=== PATIENT | female | born 1940 | race Caucasian/White ===

== ENCOUNTER → 2022-09-08 16:47 | Outpatient (CLI) | payer MEDICARE, OTHER, SELFPAY ==
--- NOTE | ~2022-09-08 | XR_ITS ---
XR lumbar spine 2-3V DATE: 09/08/2022 17:52 INDICATION: Sciatica TECHNIQUE: AP, lateral, coned lateral lumbosacral views COMPARISON: None FINDINGS: Diffuse osteopenia. Minimal levoscoliosis. Diffuse idiopathic skeletal hyperostosis of the thoracic spine. Mild to moderate loss of height at L2 vertebral body. Mild loss of height at L3 vertebral body. Status post vertebroplasty at L1, L2 and L3. Moderately severe to severe degenerative disc disease throughout the lumbar and lumbosacral spine. Degenerative change at the apophyseal joints with associated minimal grade 1 anterolisthesis at L4-5. Degenerative changes sacroiliac joints, without apparent fracture or dislocation. Status post cholecystectomy. There is a prominent amount of fecal material within the colon. IMPRESSION: Osteopenia Minimal levoscoliosis of the lumbar spine. Moderate compression fracture deformity at L2 to, mild compression fracture deformity of L3 Status post vertebroplasty at L1, L2 and L3 Degenerative changes apophyseal joints, with associated grade 1 anterolisthesis at L4-5 Moderately severe to severe degenerative disc disease throughout the lumbar and lumbosacral spine Reviewed, dictated and finalized at location A. NG CAGE CASHIER IMPRESSION: Osteopenia Minimal levoscoliosis of the lumbar spine. Moderate compression fracture deformity at L2 to, mild compression fracture def ormity of L3 Status post vertebroplasty at L1, L2 and L3 Degenerative changes apophyseal joints, with associated grade 1 anterolisthesis at L4-5 Moderately severe to severe degenerative disc disease throughout the lumbar and lumbosacral spine
== END ==
PROVIDERS: PCP Family Medicine; Visit Provider Family Medicine
DX: M54.30 Sciatica, unspecified side (principal); M85.89 Other specified disorders of bone density and structure, multiple sites; M41.86 Other forms of scoliosis, lumbar region; M48.56XA Collapsed vertebra, not elsewhere classified, lumbar region, initial encounter for fracture; Z98.890 Other specified postprocedural states; M43.16 Spondylolisthesis, lumbar region; M51.36 Other intervertebral disc degeneration, lumbar region
CPT/HCPCS: 72100

== ENCOUNTER 2022-09-29 12:35 | Outpatient (CLI) | payer MEDICARE, OTHER, SELFPAY ==
--- NOTE | ~2022-09-29 | MR_ITS ---
MRI of the lumbar spine Clinical History: Back pain Technique: Axial T2-weighted images, and sagittal T1-weighted, T2-weighted, and T2 fat-sat images wer e acquired. Findings: No acute fracture identified. There is vertebroplasty cement within the L1, L2, and L3 vert ebral bodies. Minimal grade 1 anterolisthesis of L4 over L5 noted. There are mild reactive marrow sig nal changes due to degenerative disc disease. No acute fracture seen. At L1-L2, there is minimal disc bulge. No spinal canal stenosis. There is mild to moderate bilateral neural foraminal narrowing. At L2-L3, there is minimal disc bulge and minimal facet arthropathy. No spinal canal stenosis. There is moderate bilateral neural foraminal narrowing. At L3-L4, there is minimal disc bulge. There is mild facet arthropathy. No spinal canal stenosis. The re is mild left neural foraminal narrowing. At L4-L5, there is disc bulge and mild facet arthropathy. No spinal canal stenosis. There is moderate left neural foraminal narrowing. Right neural foramen preserved. At L5-S1, there is minimal disc bulge. There is mild facet arthropathy. There is no spinal canal sten osis. There is moderate left neural foraminal narrowing. Right neural foramen preserved. 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 Paravertebral soft tissues are otherwise unremarkable. Impression: Vertebroplasty cement at L1, L2, and L3. No acute fracture. Minimal grade I anterolisthesis of L4 over L5. Mild degenerative spondylosis, with multilevel neural foraminal narrowing, as detailed above. No spin al canal stenosis. Reviewed, dictated and finalized at [facility]. CT ORIENTED PROGRAMMER Impression: Vertebroplasty cement at L1, L2, and L3. No acute fracture. Minimal grade I anterolisthesis of L4 over L5. Mild degenerative spondylosis, with multilevel neural foraminal narrowing, as d etailed above. No spinal canal stenosis.
== END 2022-09-29 12:36 | disposition home or self-care (01) ==
PROVIDERS: PCP Family Medicine; Visit Provider Family Medicine
DX: M47.26 Other spondylosis with radiculopathy, lumbar region (principal)
CPT/HCPCS: 72148

== ENCOUNTER 2023-03-28 12:37 | Outpatient (CLI) | payer MEDICARE, OTHER, SELFPAY ==
--- NOTE | ~2023-03-28 | DEXA_ITS ---
Bone Density Report Name: JARVIS MANCIA Age: 82 Sex: Female Ethnicity: White Date of : 1940 Indication: postmenopausal; screening for osteoporosis; height loss; inflammatory bowel disease; prior fracture; hysterectomy; Referring Provider: BRONWYN FIGUEROA Study: Bone densitometry was performed. Exam Date: March 28, 2023 Accession number: [id number] Bone Density: Region BMD T-score Z-score Classification Femoral Neck (Left) 0.469 -3.4 -1.1 Osteoporosis Total Hip (Left) 0.632 -2.5 -0.4 Osteoporosis Femoral Neck (Right) 0.459 -3.5 -1.2 Osteoporosis Total Hip (Right) 0.580 -3.0 -0.8 Osteoporosis Total Hip Mean 0.606 -2.8 -0.6 Osteoporosis World Health Organization criteria for BMD impression classify patients as: Normal (T-score at or above -1.0), Osteopenia (T-score between -1.0 and -2.5), or Osteoporosis (T-score at or below -2.5). 10-year Fracture Risk: FRAX not reported because: Some T-score for Spine Total or Hip Total or Femoral Neck at or below -2.5 Prior hip or vertebral fracture Clinical Information Provided by Patient: Have had a previous hip or vertebral fracture Has had a low trauma fracture Has used the following medications: Vitamin D, Calcium Has the following medical conditions: Inflammatory bowel diseases, Hysterectomy Patient maximum height was 65.5 Menopause Age: 31 No regular weight bearing exercise Drinks caffeinated beverages Onset of menses at age 13 Number of children 2 Impression: The patient has established osteoporosis, based on the Right Femoral Neck T-score and the existence of a prior fracture. The patient has risk factors, including: previous fracture. Discussion: HIGH RISK OF FRACTURE. BONE DENSITY IS UNDESIRABLY LOW AT ONE OR MORE SKELETAL SITES, CONSISTENT WITH POSTMENOPAUSAL OSTEOPOROSIS. This patient's lowest T-score, in a patient who has previously fractured, meets the World Health Organization's (WHO) criteria for severe osteoporosis. In untreated patients, the risk of osteoporotic fracture increases approximately two-fold for each 1.0 SD decrease in T-score. Low bone density is not the only risk factor for fracture; also consider factors such as patient's age, frailty or poor health, risk of falling, risk of injury, previous osteoporotic fracture, family history of osteoporosis, cigarette smoking, low body weight, etc. Not everyone with low bone mineral density has osteoporosis; osteomalacia and other metabolic bone disorders should also be considered. Patients who have osteoporosis should be evaluated for specific diseases and conditions (secondary causes) that may cause or contribute to bone loss. The [place] [employer]ocrin[employer] (AACE) and National Osteoporosis Foundation (NOF) recommend pharmacologic intervention for all postmenopausal women with a
== END 2023-03-28 12:38 | disposition home or self-care (01) ==
LOC: ANHIMG 12:39
PROVIDERS: PCP Family Medicine; Visit Provider Family Medicine
DX: Z78.0 Asymptomatic menopausal state (principal); M81.0 Age-related osteoporosis without current pathological fracture
CPT/HCPCS: 77080

== ENCOUNTER 2024-04-04 11:47 | Outpatient (CLI) | payer MEDICARE, OTHER, SELFPAY ==
--- NOTE | ~2024-04-04 | MM_ITS ---
EXAMINATION: MM diagnostic lea BI w anabela HISTORY: Mastodynia TECHNIQUE: 3-D tomosynthesis images of the bilateral breasts were performed and synthetic 2-D images were generated. CAD analysis was submitted and interpreted. COMPARISON: 03/27/2020, 03/18/2022 FINDINGS: The breasts are predominantly fatty replaced. Parenchymal pattern of both breasts is unchanged. No suspicious mass lesion, distortion, or microcalc ifications seen. Bilateral breast biopsy marker clips are present. IMPRESSION: No mammographic evidence for malignancy. BI-RADS Category 2: Benign finding(s). Reviewed, dictated and finalized at location M.
== END 2024-04-04 11:48 | disposition home or self-care (01) ==
LOC: ANHIMG 11:49
PROVIDERS: PCP Family Medicine
DX: N64.4 Mastodynia (principal)
CPT/HCPCS: 77062; 77066; G0279

== ENCOUNTER 2024-05-24 11:43 | Outpatient (CLI) | payer MEDICARE, OTHER, SELFPAY ==
--- NOTE | ~2024-05-24 | CT_ITS ---
EXAMINATION: CT abdomen pelvis wo con DATE: 05/24/2024 12:03 INDICATION: Left lower quadrant abdominal pain. TECHNIQUE: Computed tomography (CT) of the abdomen and pelvis was performed without intravenous contr ast. Automated exposure control and iterative reconstruction technique were employed. The dose-length product was 467.90 mGy-cm. COMPARISON: Lumbar spine radiographs 08/29/2022. FINDINGS: The visualized portions of the lung bases demonstrate mild atelectasis. No pleural effusion . The heart size is normal. There is a small pericardial effusion. There are coronary artery calcific ations. There is a small sliding hiatal hernia. The liver, spleen, and pancreas are normal. There are changes of cholecystectomy. The adrenal glands are normal. There are cysts in right kidney measuring up to 2.0 cm. There is mild atrophy of left kidney. There is diverticulosis of the colon without lydia dence of diverticulitis. There is wall thickening in the transverse and descending colon. There are n o dilated loops of bowel. The appendix is normal. There is calcified atherosclerosis of the aorta and many of the other arteries. There are no pathologically enlarged lymph nodes. There is severe lumbar spondylosis. There are changes of vertebroplasty in L1, L2, and L3 with embolization of vertebroplas ty material to the inferior vena cava. There is a benign bone island in L5. IMPRESSION: 1. Wall thickening of the transverse and descending colon, consistent with colitis. 2. Small sliding hiatal hernia. 3. Small pericardial effusion. Reviewed, dictated and finalized at location A. IMPRESSION: 1. Wall thickening of the transverse and descending colon, consistent with coli tis. 2. Small sliding hiatal hernia. 3. Small pericardial effusion.
[2024-05-24 12:22] LABS: Basophils Absolute Auto 0.1 K/mm3 (0.0-0.1); Basophils Percent Auto 0.5 % (0.2-1.2); Eosinophils Percent Auto 0.3 % (0-4.4); Hematocrit 43.2 % (37.0-47.0); Hemoglobin 14.1 g/dL (12.0-15.0); Immature Granulocyte Absolute 0.05 K/mm3 (0.00-0.031); Immature Granulocyte Percent A 0.5 % (0-0.5); Lymphocytes Absolute Auto 1.73 K/mm3 (0.9-3.2); Lymphocytes Percent Auto 17.9 % (18.3-44.2); Mean Corpuscular HGB Conc 32.6 g/dl (32-36); Mean Corpuscular Hemoglobin 30.7 pg (26-34); Mean Corpuscular Volume 93.9 fl (80-100); Mean Platelet Volume 10.8 fl (7.4-10.4); Monocytes Absolute Auto 0.8 K/mm3 (0.1-0.6); Neutrophils Absolute Auto 7.1 K/mm3 (1.3-6.7); Neutrophils Percent Auto 72.8 % (45.5-73.1); Platelet Count Result 235 k/mm3 (150-375); Red Cell Distribution Width 12.7 % (11.5-14.5); White Blood Count 9.7 K/mm3 (4.5-10.0)
[2024-05-24 12:41] LABS: Alanine Aminotransferase 16 U/L (6-35); Albumin Level 4.5 g/dL (3.5-5.1); Alkaline Phosphatase 82 U/L (38-126); Anion Gap 13 mmol/L (4-12); Aspartate Amino Transferase 29 U/L (14-36); Bilirubin,Total 1.1 mg/dL (0.2-1.3); Blood Urea Nitrogen 20 mg/dL (7-17); Calcium 9.9 mg/dL (8.4-10.2); Carbon Dioxide 21 mmol/L (22-30); Chloride 104 mmol/L (98-107); Estimated Glomerular Filt Rate 36; Glucose 87 mg/dL (65-110); Potassium 5.2 mmol/L (3.4-5.0); Sodium 138 mmol/L (137-145)
== END 2024-05-24 11:44 | disposition home or self-care (01) ==
LOC: ANHIMG 11:46
PROVIDERS: PCP Family Medicine; Visit Provider Physician Assistant
DX: R10.32 Left lower quadrant pain (principal); Z87.19 Personal history of other diseases of the digestive system; R68.83 Chills (without fever); K44.9 Diaphragmatic hernia without obstruction or gangrene; I31.39 Other pericardial effusion (noninflammatory)
CPT/HCPCS: 36415; 74176; 80053; 85025

== ENCOUNTER 2024-05-26 15:14 | Inpatient (IN) | payer MEDICARE, OTHER, SELFPAY ==
[2024-05-26] VITALS (7 sets, daily range): BP systolic 110–143; BP diastolic 41–73; PULSE 87–114; RESP 17–22; TEMP 36.2–36.9; O2SAT 98–100
--- NOTE | ~2024-05-26 | CT_ITS ---
EXAMINATION: CT abdomen pelvis wo con DATE: 05/26/2024 17:46 INDICATION: Worsening abdominal pain. Colitis. TECHNIQUE: Computed tomography (CT) of the abdomen and pelvis was performed without intravenous contr ast. Automated exposure control and iterative reconstruction technique were employed. Exam dose: 497 .11 mGy-cm total exam DLP. COMPARISON: 05/24/2024 CT abdomen pelvis FINDINGS: The lung bases are clear. Borderline heart size. No pericardial or pleural effusion. Right fat-containing foramen of Bochdalek hernia. Small sliding hiatal hernia. Status post cholecystectomy. No hepatic or pancreatic space-occupying mass lesion or bile duct or pancreatic duct dilatation. Norm al splenic size. No adrenal mass lesion. Moderate left renal atrophy. No urinary tract calculus or hydroureteronephrosis. Diverticulosis of the colon; no CT evidence of diverticulitis No bowel obstruction or intraperitoneal free air. Again noted is vertebroplasty at L1, L2, L3 with embolization of methyl methacrylate at the inferior vena cava. L5 vertebral body bone island.. Severe degenerative disc disease throughout the lumbar spine. IMPRESSION: No significant change since 05/24/2024 Reviewed, dictated and finalized at Location A. Reviewed, dictated and finalized at location J.
[2024-05-26 16:00] LABS: Basophils Percent Auto 0.5 % (0.2-1.2); Eosinophils Absolute Auto 0.1 K/mm3 (0-0.3); Eosinophils Percent Auto 0.6 % (0-4.4); Hematocrit 39.2 % (37.0-47.0); Hemoglobin 13.3 g/dL (12.0-15.0); Immature Granulocyte Absolute 0.02 K/mm3 (0.00-0.031); Immature Granulocyte Percent A 0.2 % (0-0.5); Lymphocytes Absolute Auto 1.59 K/mm3 (0.9-3.2); Lymphocytes Percent Auto 18.9 % (18.3-44.2); Mean Corpuscular HGB Conc 33.9 g/dl (32-36); Mean Corpuscular Hemoglobin 30.8 pg (26-34); Mean Corpuscular Volume 90.7 fl (80-100); Mean Platelet Volume 10.8 fl (7.4-10.4); Monocytes Absolute Auto 0.8 K/mm3 (0.1-0.6); Monocytes Percent Auto 9.2 % (2.6-8.5); Neutrophils Absolute Auto 5.9 K/mm3 (1.3-6.7); Neutrophils Percent Auto 70.6 % (45.5-73.1); Platelet Count Result 225 k/mm3 (150-375); Red Blood Count 4.32 M/mm3 (4.2-5.4); Red Cell Distribution Width 12.7 % (11.5-14.5); White Blood Count 8.4 K/mm3 (4.5-10.0)
[2024-05-26 16:14] LABS: Add Urine Microscopic? YES; Appearance Urine Clear (Clear); Bacteria Urine None Seen /hpf; Bilirubin Urine Negative (Negative); Blood Urine Negative (Negative); Color Urine Yellow (Yellow); Glucose Urine UA Negative (Negative); Ketones Urine Trace mg/dL (Negative); Leukocyte Esterase Ur Trace LEU/UL (Negative); Nitrate Urine Negative (Negative); Non Pathogenic Casts 0-2; Protein Urine Trace mg/dL (Negative); Specific Grav Ur 1.012 (1.001-1.035); Squamous Epithelial Cell Urine Occasional /hpf (Few); Urobilinogen Urine 0.2 mg/dL (<2.0); WBC Urine 0-5 /hpf (0-3)
[2024-05-26 16:15] LABS: Alanine Aminotransferase 17 U/L (6-35); Albumin Level 4.3 g/dL (3.5-5.1); Alkaline Phosphatase 69 U/L (38-126); Anion Gap 15 mmol/L (4-12); Aspartate Amino Transferase 35 U/L (14-36); Bilirubin,Total 0.8 mg/dL (0.2-1.3); Blood Urea Nitrogen 26 mg/dL (7-17); Calcium 9.5 mg/dL (8.4-10.2); Carbon Dioxide 18 mmol/L (22-30); Chloride 105 mmol/L (98-107); Estimated CRCL calculation 18 ml/min; Estimated Glomerular Filt Rate 25; Glucose 134 mg/dL (65-110); Lipase 113 U/L (23-300); Potassium 3.9 mmol/L (3.4-5.0); Sodium 138 mmol/L (137-145)
[2024-05-26] MEDS: SODIUM CHLORIDE 0.9% IV 500 ML 999 ML IV CONT ×2 (16:26→17:36)
--- NOTE | 2024-05-26 17:12 | ED.NAVMDI ---
HPI - Nausea/Vomiting/Diarrhea General Chief complaint: Nausea/Vomiting/Diarrhea Stated complaint: diarrhea Time Seen by Provider: 05/26/24 15:39 Source: patient Mode of arrival: ambulatory Limitations: no limitations History of Present Illness HPI Narrative: This is a 83-year-old female that presents to the emergency department for abdominal pain and diarrhea. Ongoing over the last several days. Reports she was started on ciprofloxacin and Flagyl for colitis. She has had little relief with this. Continues to have abdominal pain and nausea limiting intake. Denies fevers. Related Data Home Medications Medication Instructions Recorded Confirmed acetaminophen 500 mg tablet 1,000 mg PO Q6H PRN pain or fever 05/26/24 05/26/24 melatonin 3 mg tablet 3 mg PO HS PRN Insomnia 05/26/24 05/26/24 omeprazole 20 mg capsule,delayed 20 mg PO DAILY PRN Indigestion 05/26/24 05/26/24 release Allergies Allergy/AdvReac Type Severity Reaction Status Date / Time adhesive tape Allergy Mild Unknown Verified 05/24/24 10:31 iodine Allergy Mild Unknown Verified 05/24/24 10:31 Review of Systems Review of Systems: CONSTITUTIONAL: Denies fever GASTROINTESTINAL: Reports abdominal pain, nausea, and diarrhea. 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ever Substance use type: does not use Do You Feel Safe in your Home?: Yes Lack of Transportation: No Lack of Food: Never True Current Housing: I Have Housing Concerned About Future Housing: No Difficulty Paying Gas/Electric Bills: No Difficulty Paying for Meds: No Currently Unemployed: No Education: Trade/Vocational Certificate Difficulty w/ Childcare or Family Care: No Living arrangements: with family Occupation/Education: retired Gender identity (if verbalized by the patient): Female Sexual Orientation (if Verbalized by the Patient): Straight or Heterosexual Spiritual care concerns: No Exam Narrative: GENERAL: Well-appearing, well-nourished, and in no acute distress. HEAD: Normocephalic, atraumatic. EYES: EOMI. CHEST: Clear to auscultation. No respiratory distress. No wheezes rales or rhonchi HEART: Regular rate and rhythm. No murmur heard. Normal peripheral pulses. ABDOMEN: Soft, nondistended, normal active bowel sounds. Tender to palpation throughout the abdomen, without guarding EXTREMITIES: Normal range of motion. No edema. SKIN: Warm, dry, no rash. NEURO: No focal deficits. Alert and oriented x3. PSYCH: Normal mood and affect Course Course Emergency Course: Patient and family updated on workup and need for admission Consultations Consultation #1: Spoke with hospitalist about patient and workup who accepts admission. Would like a CT abdomen/pelvis to rule any abscess or potential surgical need Date: 05/26/24 Vital S
[2024-05-26 17:48] LABS: Lactic Acid Reflex 1.5 mmol/L (0.7-2.0)
[2024-05-26] MEDS: ONDANSETRON INJ 4 MG/2 ML VIAL IV PUSH (17:56)
[2024-05-26] MEDS: PANTOPRAZOLE SODIUM IV 40 MG VIAL IV PUSH (17:56)
[2024-05-26] MEDS: MORPHINE SULFATE (*CRX) 2 MG/ML INJ IV PUSH (17:56)
--- NOTE | 2024-05-26 18:23 | PM.IMHP ---
H&P: HPI History of Present Illness Date/Time: 05/26/24 18:23 Chief Complaint: Diarrhea Narrative: 83 y/o F presents here with diarrhea with PMH of chronic back pain, depression, GERD, HTN, hypothyroidism, IBS, osteoporosis, and rheumatoid arthritis. The patient presents here from home for further evaluation of diarrhea. She reports onset of diarrhea three weeks ago. Has been ongoing for the past 3 weeks. She also reports that her stool has been a different consistency through these episodes and describes it as more mucus like and more dark, however patient was self-treating with Pepto-Bismol and Bentyl. Patient initially sought care with her PCP who started her on Cipro 500 BID and Flagyl 500 mg Q8H. Today, patient woke up at 4:45 am to use the restroom due to diarrhea and had 4-5 more episodes after that. Diarrhea is accompanied by nausea, abdominal pain, and lower back pain. She describes the abdominal pain as cramping, nonradiating, intermittent, aggravated by eating, and no alleviating factors. Patient initially attributed symptoms to her known IBS. However due to her symptoms continuing to worsen by the hour , she elected to seek care today. Patient has history of diverticulitis years ago and reports that symptoms feel similar. Denies hematochezia or melena. Initial VS at presentation: 98.4? F, HR 114, RR 22, 143/62, and 98% on RA. ED workup showed: No leukocytosis, no anemia, creatinine 1.9 and GFR 25 (previously 1.4 and GFR 36), lactic 1.5, normal LFTs and lipase, and UA showed trace ketones, trace leuks, and 3-[address] of the abdomen pelvis done on 05/24 showed colitis, small sliding hiatal hernia, and small pericardial effusion. Repeat CT of the abdomen/pelvis pending. 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ever Substance use type: does not use Do You Feel Safe in your Home?: Yes Lack of Transportation: No Lack of Food: Never True Current Housing: I Have Housing Concerned About Future Housing: No Difficulty Paying Gas/Electric Bills: No Difficulty Paying for Meds: No Currently Unemployed: No Education: Trade/Vocational Certificate Difficulty w/ Childcare or Family Care: No Living arrangements: with family Occupation/Education: retired Gender identity (if verbalized by the patient): Female Sexual Orientation (if Verbalized by the Patient): Straight or Heterosexual Spiritual care concerns: No Meds Home Medications and Allergies Home Medications Medication Instructions Recorded Confirmed Type lisinopril 10 mg tablet 10 mg PO DAILY #90 tabs 03/06/24 05/26/24 Rx levothyroxine 75 mcg tablet 75 mcg PO DAILY #30 tabs 03/23/24 05/26/24 Rx dicyclomine 20 mg tablet 20 mg PO QID PRN cramping #30 tabs 05/21/24 05/26/24 Rx ciprofloxacin HCl 500 mg tabl
--- NOTE | 2024-05-26 19:09 | ADMGEN ---
This patient, Carla Rosas, was admitted to Medical Room 348-01. Patient/family oriented to hospital policies and general routines including ID bracelet, bed and alarms, visiting hours, pain management, procedures, bathroom and other care routines, personal items, smoking policy, room service/diet, and visiting hours. Information on how to activate the Rapid Response Team has been discussed. Patient/Family are encouraged to report perceived risks to care and to ask questions if they do not understand what they are told or what they should do.
[2024-05-26] MEDS: metroNIDAZOLE 500 MG/ISO 100ML 500 MG/100 ML BAG 100 MG IVPB (21:24)
[2024-05-26] MEDS: SODIUM CHLORIDE 0.9% IV 1,000 ML 100 ML IV CONT (21:24)
[2024-05-26] MEDS: DICYCLOMINE HCL 10 MG CAPSULE 20 MG PO (21:31)
[2024-05-26] MEDS: MELATONIN 3 MG TABLET PO (21:31)
[2024-05-27] VITALS (11 sets, daily range): BP systolic 110–123; BP diastolic 45–53; PULSE 64–87; RESP 16–20; TEMP 36.4–36.7; O2SAT 99–100
[2024-05-27] MEDS: metroNIDAZOLE 500 MG/ISO 100ML 500 MG/100 ML BAG 100 MG IVPB ×3 (05:09→20:59)
[2024-05-27 05:52] LABS: Basophils Absolute Auto 0.1 K/mm3 (0.0-0.1); Basophils Percent Auto 0.7 % (0.2-1.2); Eosinophils Absolute Auto 0.1 K/mm3 (0-0.3); Eosinophils Percent Auto 1.6 % (0-4.4); Hematocrit 37.2 % (37.0-47.0); Hemoglobin 11.5 g/dL (12.0-15.0); Immature Granulocyte Absolute 0.03 K/mm3 (0.00-0.031); Immature Granulocyte Percent A 0.4 % (0-0.5); Lymphocytes Absolute Auto 1.47 K/mm3 (0.9-3.2); Lymphocytes Percent Auto 20.8 % (18.3-44.2); Mean Corpuscular HGB Conc 30.9 g/dl (32-36); Mean Corpuscular Hemoglobin 30.2 pg (26-34); Mean Corpuscular Volume 97.6 fl (80-100); Mean Platelet Volume 11.1 fl (7.4-10.4); Monocytes Absolute Auto 0.9 K/mm3 (0.1-0.6); Monocytes Percent Auto 12.2 % (2.6-8.5); Neutrophils Absolute Auto 4.5 K/mm3 (1.3-6.7); Neutrophils Percent Auto 64.3 % (45.5-73.1); Platelet Count Result 189 k/mm3 (150-375); Red Blood Count 3.81 M/mm3 (4.2-5.4); Red Cell Distribution Width 12.9 % (11.5-14.5); White Blood Count 7.1 K/mm3 (4.5-10.0)
[2024-05-27 06:05] LABS: Alanine Aminotransferase 14 U/L (6-35); Albumin Level 3.4 g/dL (3.5-5.1); Alkaline Phosphatase 58 U/L (38-126); Anion Gap 12 mmol/L (4-12); Aspartate Amino Transferase 32 U/L (14-36); Bilirubin,Total 0.7 mg/dL (0.2-1.3); Blood Urea Nitrogen 21 mg/dL (7-17); Calcium 8.3 mg/dL (8.4-10.2); Carbon Dioxide 16 mmol/L (22-30); Chloride 112 mmol/L (98-107); Estimated CRCL calculation 21 ml/min; Estimated Glomerular Filt Rate 31; Glucose 87 mg/dL (65-110); Potassium 4.2 mmol/L (3.4-5.0); Sodium 140 mmol/L (137-145)
[2024-05-27] MEDS: LEVOTHYROXINE SODIUM 75 MCG TABLET PO (06:05)
[2024-05-27] MEDS: DICYCLOMINE HCL 10 MG CAPSULE 20 MG PO (09:13)
--- NOTE | 2024-05-27 15:47 | PM.IMPN ---
Progress Note: A&P Assessment and Plan (1) Sepsis: Qualifiers: Sepsis type: sepsis due to unspecified organism Sepsis acute organ dysfunction status: without acute organ dysfunction Qualified Code(s): A41.9 - Sepsis, unspecified organism Code(s): A41.9 - Sepsis, unspecified organism Status: Acute Assessment and Plan: - Resolved. - Symptoms possibly related to severe dehydration 2'/2 diarrhea. - Lactate normalized. - No fevers or leukocytosis. - Continue ceftriaxone and metronidazole for now as we await cultures. - blood cultures drawn on 05/26 - Follow stool studies. (2) Colitis: Code(s): K52.9 - Noninfective gastroenteritis and colitis, unspecified Status: Acute Assessment and Plan: - CT abd/pelvis (05/24): 1. Wall thickening of the transverse and descending colon, consistent with colitis. 2. Small sliding hiatal hernia. 3. Small pericardial effusion. - CT abd/pelvis (05/26): 1. No significant change since 05/24/2024 - Continue ceftriaxone and metronidazole for now. - IV fluids hydration. - supportive care - monitor I&Os - soft diet advance as tolerated. (3) ROMINA (acute kidney injury): Code(s): N17.9 - Acute kidney failure, unspecified Status: Acute Assessment and Plan: - ROMINA superimposed on CKD - Slowly improving. - creatinine 1.9 and GFR 25, previously 1.4 and GFR 36 on 05/24/2024 - Likely 2'/2 dehydration related to diarrhea. - Iv fluids hydration. - Continue to hold madyson inhibitor. (4) HTN (hypertension): Qualifiers: Hypertension type: secondary to endocrine disorders Qualified Code(s): I15.2 - Hypertension secondary to endocrine disorders Code(s): I10 - Essential (primary) hypertension Status: Acute Assessment and Plan: - Fairly well controlled. - Continue to hold BP meds. - monitor closely. Plan Patient here with ongoing diarrhea for 3 weeks. Initially attributed symptoms to IBS, however stool more mucus-like than her usual loose stools. Imaging showed colitis. Stool cultures pending. Started on ceftriaxone and metronidazole. Blood cultures pending. Diet: Clear liquid, advance as tolerated GI Prophylaxis: PO pantoprazole DVT Prophylaxis: SCDs Lines: peripheral Code Status: full code Time Spent With Patient Time with patient: 25 - 35 minutes Subjective Date/time seen: 05/27/24 15:47 Interval history: Patient has a Hx of IBS and normally has diarrhea episodes but do not last > 1 week. She presented to the ER with reports of diarrhea > 3 weeks that was not improving. Patient currently on bedrest and states still has episodes of diarrhea with some abdominal discomfort. Review of Systems Review of Systems: All systems reviewed & are unremarkable except as noted in HPI and below Exam Const: General: comfortable and no acute distress Other: , female, nontoxic appearance HENMT: Face/Nose/Sinus: Normal nares present Mouth: Yes dry mucous membranes Eyes: General: appearance normal, both eyes and all related structures Sclera: sclerae normal Pupils: Equal, round and reactive pupils present EOM: EOMs intact bilaterally Neck: Neck: supple Resp: Effort & Inspection: normal respiratory effort Auscultation: clear to auscultation bilaterally Cardio: Rate: regular rate Rhythm: regular rhythm Other: S1-S2 present without murmur, rub, ectopy GI: GI Palp: Yes Soft to palpation Other: mild abdominal tenderness on palpation. +ve bowel sounds in all quadrants. Skin: General skin exam: normal color and no rashes or lesions noted Wounds: no wounds Neuro: Cranial nerves: Yes Equal, round and reactive pupils present Speech: normal speech Motor exam (neuro): 5/5 motor strength present throughout Sensory Exam: normal sensation Other: A/Ox4 Extrem: General: normal to inspection Psych: Mental Status: mental status grossly normal Affect: normal
[2024-05-27] MEDS: HYDROcodone/acetaminophen (*CRX) 5-325 MG TABLET 1 TAB PO ×2 (16:31→22:32)
[2024-05-27] MEDS: SODIUM CHLORIDE 0.9% IV 1,000 ML 125 ML IV CONT (16:36)
[2024-05-27] MEDS: MELATONIN 3 MG TABLET PO (20:58)
[2024-05-28] VITALS (7 sets, daily range): BP systolic 129–150; BP diastolic 52–69; PULSE 73–100; RESP 19–20; TEMP 36.3–36.5; O2SAT 99–100; BMI 26.6
[2024-05-28] MEDS: SODIUM CHLORIDE 0.9% IV 1,000 ML 125 ML IV CONT ×3 (05:21→20:30)
[2024-05-28] MEDS: LEVOTHYROXINE SODIUM 75 MCG TABLET PO (05:30)
[2024-05-28] MEDS: metroNIDAZOLE 500 MG/ISO 100ML 500 MG/100 ML BAG 100 MG IVPB ×3 (05:30→20:31)
[2024-05-28 06:17] LABS: Anion Gap 12 mmol/L (4-12); Blood Urea Nitrogen 18 mg/dL (7-17); Calcium 8.3 mg/dL (8.4-10.2); Carbon Dioxide 15 mmol/L (22-30); Chloride 113 mmol/L (98-107); Estimated CRCL calculation 26 ml/min; Estimated Glomerular Filt Rate 39; Glucose 90 mg/dL (65-110); Potassium 4.4 mmol/L (3.4-5.0); Sodium 140 mmol/L (137-145)
[2024-05-28 06:30] LABS: Basophils Absolute Auto 0.1 K/mm3 (0.0-0.1); Basophils Percent Auto 0.7 % (0.2-1.2); Eosinophils Absolute Auto 0.2 K/mm3 (0-0.3); Eosinophils Percent Auto 2.6 % (0-4.4); Hematocrit 37.1 % (37.0-47.0); Hemoglobin 11.4 g/dL (12.0-15.0); Immature Granulocyte Absolute 0.03 K/mm3 (0.00-0.031); Immature Granulocyte Percent A 0.4 % (0-0.5); Immature Platelet Fraction Pct 7.8 % (0.9-11.2); Lymphocytes Absolute Auto 1.29 K/mm3 (0.9-3.2); Lymphocytes Percent Auto 17.6 % (18.3-44.2); Mean Corpuscular HGB Conc 30.7 g/dl (32-36); Mean Corpuscular Hemoglobin 30.3 pg (26-34); Mean Corpuscular Volume 98.7 fl (80-100); Mean Platelet Volume 12.1 fl (7.4-10.4); Monocytes Absolute Auto 0.7 K/mm3 (0.1-0.6); Monocytes Percent Auto 9.7 % (2.6-8.5); Neutrophils Absolute Auto 5.1 K/mm3 (1.3-6.7); Platelet Count Result 157 k/mm3 (150-375); Red Blood Count 3.76 M/mm3 (4.2-5.4); Red Cell Distribution Width 13.2 % (11.5-14.5); White Blood Count 7.3 K/mm3 (4.5-10.0)
[2024-05-28 06:35] LABS: Toxigenic C. Diff NEGATIVE (NEGATIVE)
--- NOTE | 2024-05-28 14:07 | PM.IMPN ---
Progress Note: A&P Assessment and Plan (1) Sepsis: Qualifiers: Sepsis type: sepsis due to unspecified organism Sepsis acute organ dysfunction status: without acute organ dysfunction Qualified Code(s): A41.9 - Sepsis, unspecified organism Code(s): A41.9 - Sepsis, unspecified organism Status: Acute Assessment and Plan: - Resolved. - Symptoms likely not Sepsis but related to severe dehydration 2'/2 diarrhea. - Currently no Lactic acidosis, No fevers or leukocytosis. - Continue ceftriaxone and metronidazole for now as we await cultures. - Preliminary blood cultures NGTD. - Follow stool studies. (2) Colitis: Code(s): K52.9 - Noninfective gastroenteritis and colitis, unspecified Status: Acute Assessment and Plan: - CT abd/pelvis (05/24): 1. Wall thickening of the transverse and descending colon, consistent with colitis. 2. Small sliding hiatal hernia. 3. Small pericardial effusion. - CT abd/pelvis (05/26): 1. No significant change since 05/24/2024 - Continue ceftriaxone and metronidazole for now. - GI consulted. - IV fluids hydration. - supportive care - monitor I&Os - soft diet and advance as tolerated. (3) ROMINA (acute kidney injury): Code(s): N17.9 - Acute kidney failure, unspecified Status: Acute Assessment and Plan: - ROMINA superimposed on CKD - Likely 2'/2 dehydration related to diarrhea. - Cr continues to improve. - Continue Iv fluids hydration. - Continue to hold madyson inhibitor. (4) HTN (hypertension): Qualifiers: Hypertension type: secondary to endocrine disorders Qualified Code(s): I15.2 - Hypertension secondary to endocrine disorders Code(s): I10 - Essential (primary) hypertension Status: Acute Assessment and Plan: - Fairly well controlled. - Continue to hold BP meds. - monitor closely. Plan Patient here with ongoing diarrhea for 3 weeks. Initially attributed symptoms to IBS, however stool more mucus-like than her usual loose stools. Imaging showed colitis. Stool cultures pending. Started on ceftriaxone and metronidazole. Blood cultures pending. Diet: Clear liquid, advance as tolerated GI Prophylaxis: PO pantoprazole DVT Prophylaxis: SCDs Lines: peripheral Code Status: full code Time Spent With Patient Time with patient: 25 - 35 minutes Subjective Date/time seen: 05/28/24 11:07 Interval history: Patient has a Hx of IBS and normally has intermittent diarrhea episodes that do not last > 1 week. Pt presented to the ER with reports of diarrhea > 3 weeks that was not improving. Patient currently on bedrest, crying and feeling very frustrated and hopeless with the repeat diarrhea episodes that she's having. Patient stating she can't even tolerate any meals currently due to the diarrhea. Review of Systems Review of Systems: All systems reviewed & are unremarkable except as noted in HPI and below Exam Const: General: uncomfortable Other: very frustrated and crying in bed. HENMT: Face/Nose/Sinus: Normal nares present Mouth: Yes dry mucous membranes Eyes: General: appearance normal, both eyes and all related structures Sclera: sclerae normal Pupils: Equal, round and reactive pupils present EOM: EOMs intact bilaterally Neck: Neck: supple Resp: Effort & Inspection: normal respiratory effort Auscultation: clear to auscultation bilaterally Cardio: Rate: regular rate Rhythm: regular rhythm Other: S1-S2 present without murmurs. GI: Other: mod abdominal tenderness on palpation. +ve bowel sounds in all quadrants. Skin: General skin exam: normal color and no rashes or lesions noted Wounds: no wounds Neuro: Cranial nerves: Yes Equal, round and reactive pupils present Speech: normal speech Motor exam (neuro): 5/5 motor strength present throughout Sensory Exam: normal sensation Other: A/Ox4 Extrem: General: normal to inspection Psych: Mental Status:
[2024-05-28] MEDS: DICYCLOMINE HCL 10 MG CAPSULE 20 MG PO (14:54)
--- NOTE | 2024-05-28 15:52 | WPDGICN ---
Assessment and Plan Assessment and plan (1) Sepsis: Qualifiers: Sepsis type: sepsis due to unspecified organism Sepsis acute organ dysfunction status: without acute organ dysfunction Qualified Code(s): A41.9 - Sepsis, unspecified organism Code(s): A41.9 - Sepsis, unspecified organism Status: Acute Assessment and Plan: resolved, on admission (2) Colitis: Code(s): K52.9 - Noninfective gastroenteritis and colitis, unspecified Status: Acute Assessment and Plan: on abx, pending stool cultures no blood in stools will add questran to see if can slow down diarrhea I prefer to do colonoscopy once colitis is improved but will monitor (3) ROMINA (acute kidney injury): Code(s): N17.9 - Acute kidney failure, unspecified Status: Acute Assessment and Plan: improved after treatment (4) Nausea: Code(s): R11.0 - Nausea Status: Acute Assessment and Plan: antiemetics (5) Diarrhea: Code(s): R19.7 - Diarrhea, unspecified Status: Acute GI Consult Note Consult date/time: 05/28/24 15:52 Reason for consult: diarrhea HPI: Carla Rosas is a 83 year old female with h/o HTN, hypothyroidism and IBS. She says that for last 3 weeks with IBS flare-up consistent of discomfort, started using bentyl and peptobismol but did not make a difference then started with diarrhea about 1.5 week ago, last she went to see PCP that prescribed cipro and flagyl but also was nauseous and diarrhea did not slow down. Finally came to ER and was admitted. CT scan showed colitis, stool sample no findings, C diff negative, lactic and liver enzymes normal, creat up to 1.9. Still with diarrhea, last colonoscopy about 5 years ago when used to liver in [place] (she now is living with family in town). Admitted with diagnosis of sepsis due to colitis, now is feeling better but still not eating much because of discomfort. Denies blood in stools, no emesis. Review of Systems Constitutional: Constitutional: Denies chills Eyes: Eyes: Denies blurry vision ENT: Reports Normal hearing present, Denies headache(s) and Denies neck pain Cardiovascular: Cardiovascular: Denies chest pain and Denies dyspnea Respiratory: Respiratory: Denies dyspnea Gastrointestinal: Gastrointestinal: Reports no additional gastrointestinal complaints Genitourinary: Genitourinary: Denies dysuria Musculoskeletal: Musculoskeletal: Denies neck pain Integumentary/Breasts: Skin/Breast: Denies dry skin Neurologic: Reports Normal hearing present, Denies headache(s) and Denies weakness Psychiatric: Psychiatric: Denies anxiety Endocrine: Endocrine: Denies change in body appearance Hematologic/Lymphatic: Hematologic/Lymphatic: Denies easy bleeding Allergic/Immunologic: Allergic/Immunologic: Denies urticaria PMFSH Past Medical History Medical History (Updated 05/28/24 @ 15:57 by Mikel Miguel MD) 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, right Chondrodermatitis nodularis helicis Chronic back pain Chronic kidney disease, stage 3 unspecified Compression fx, lumbar spine L2,3,4 Depression Diarrhea GERD (gastroesophageal reflux disease) Hallux valgus (acquired), right foot HTN (hypertension) Hypothyroidism IBS (irritable bowel syndrome) Nausea Osteoporosis 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
[2024-05-28] MEDS: ONDANSETRON INJ 4 MG/2 ML VIAL IV PUSH (18:16)
[2024-05-28] MEDS: HYDROcodone/acetaminophen (*CRX) 5-325 MG TABLET 1 TAB PO (20:30)
[2024-05-29] MEDS: SODIUM CHLORIDE 0.9% IV 1,000 ML 125 ML IV CONT ×4 (02:14→22:43)
[2024-05-29] MEDS: CHOLESTYRAMINE LIGHT 4 GM POWD.PACK PO (04:23)
[2024-05-29] MEDS: ONDANSETRON INJ 4 MG/2 ML VIAL IV PUSH ×3 (04:23→22:42)
[2024-05-29] MEDS: LEVOTHYROXINE SODIUM 75 MCG TABLET PO (05:57)
[2024-05-29] MEDS: metroNIDAZOLE 500 MG/ISO 100ML 500 MG/100 ML BAG 100 MG IVPB ×3 (05:57→22:44)
[2024-05-29 06:00] VITALS: BP 134/54; PULSE 81; RESP 20; TEMP 36.4; O2SAT 100
[2024-05-29 06:02] LABS: Hematocrit 35.6 % (37.0-47.0); Hemoglobin 11.2 g/dL (12.0-15.0); Mean Corpuscular HGB Conc 31.5 g/dl (32-36); Mean Corpuscular Hemoglobin 30.1 pg (26-34); Mean Corpuscular Volume 95.7 fl (80-100); Platelet Count Result 167 k/mm3 (150-375); Red Blood Count 3.72 M/mm3 (4.2-5.4); Red Cell Distribution Width 13.1 % (11.5-14.5); White Blood Count 9.6 K/mm3 (4.5-10.0)
[2024-05-29 06:16] LABS: Anion Gap 11 mmol/L (4-12); Blood Urea Nitrogen 10 mg/dL (7-17); Calcium 8.4 mg/dL (8.4-10.2); Carbon Dioxide 17 mmol/L (22-30); Chloride 112 mmol/L (98-107); Estimated CRCL calculation 33 ml/min; Estimated Glomerular Filt Rate 53; Glucose 86 mg/dL (65-110); Potassium 3.6 mmol/L (3.4-5.0); Sodium 140 mmol/L (137-145)
[2024-05-29] MEDS: DICYCLOMINE HCL 10 MG CAPSULE 20 MG PO (08:35)
--- NOTE | 2024-05-29 09:36 | PM.IMPN ---
Progress Note: A&P Assessment and Plan (1) Sepsis: Qualifiers: Sepsis type: sepsis due to unspecified organism Sepsis acute organ dysfunction status: without acute organ dysfunction Qualified Code(s): A41.9 - Sepsis, unspecified organism Code(s): A41.9 - Sepsis, unspecified organism Status: Acute Assessment and Plan: - Resolved. - Likely not Sepsis but abnormal labs likely related to severe dehydration 2'/2 diarrhea. - Currently no Lactic acidosis, No fevers or leukocytosis. - Preliminary blood cultures NGTD. - Stool studies pending. - Continue ceftriaxone and metronidazole for now. (2) Colitis: Code(s): K52.9 - Noninfective gastroenteritis and colitis, unspecified Status: Acute Assessment and Plan: - CT abd/pelvis (05/24): 1. Wall thickening of the transverse and descending colon, consistent with colitis. 2. Small sliding hiatal hernia. 3. Small pericardial effusion. - CT abd/pelvis (05/26): 1. No significant change since 05/24/2024 - GI following. - Started on Cholestyramine per GI and continued on Bentyl. - Continue ceftriaxone and metronidazole for now. - Continue IV fluids hydration as pt not tolerating meals ok. - supportive care. - monitor I&Os. - diet and advance as tolerated. (3) ROMINA (acute kidney injury): Code(s): N17.9 - Acute kidney failure, unspecified Status: Acute Assessment and Plan: - ROMINA superimposed on CKD - Likely 2'/2 dehydration related to diarrhea. - Resolved with IVF hydration. - Continue Iv fluids hydration. - Continue to hold madyson inhibitor. (4) HTN (hypertension): Qualifiers: Hypertension type: secondary to endocrine disorders Qualified Code(s): I15.2 - Hypertension secondary to endocrine disorders Code(s): I10 - Essential (primary) hypertension Status: Acute Assessment and Plan: - Fairly well controlled. - Continue to hold BP meds. - monitor closely. Plan Patient here with ongoing diarrhea for 3 weeks. Initially attributed symptoms to IBS, however stool more mucus-like than her usual loose stools. Imaging showed colitis. Stool cultures pending. Started on ceftriaxone and metronidazole. Blood cultures pending. Diet: Clear liquid, advance as tolerated GI Prophylaxis: PO pantoprazole DVT Prophylaxis: SCDs Lines: peripheral Code Status: full code Subjective Date/time seen: 05/29/24 09:30 Interval history: Patient has a Hx of IBS and normally has intermittent diarrhea episodes that do not last > 1 week. Pt presented to the ER with reports of diarrhea > 3 weeks that was not improving. Patient being followed up by GI currently and states that she doesn't feel any improvement in her symptoms and is very frustrated that she spends most of her day and night in the bathroom having diarrhea. Review of Systems Review of Systems: All systems reviewed & are unremarkable except as noted in HPI and below Exam Const: General: uncomfortable Other: very frustrated on bedrest. HENMT: Face/Nose/Sinus: Normal nares present Mouth: Yes dry mucous membranes Eyes: General: appearance normal, both eyes and all related structures Sclera: sclerae normal Pupils: Equal, round and reactive pupils present EOM: EOMs intact bilaterally Neck: Neck: supple Resp: Effort & Inspection: normal respiratory effort Auscultation: clear to auscultation bilaterally Cardio: Rate: regular rate Rhythm: regular rhythm Other: S1-S2 present without murmurs. GI: Other: mod abdominal tenderness on palpation. +ve bowel sounds in all quadrants. Skin: General skin exam: normal color and no rashes or lesions noted Wounds: no wounds Neuro: Cranial nerves: Yes Equal, round and reactive pupils present Speech: normal speech Motor exam (neuro): 5/5 motor strength present throughout Sensory Exam: normal sensation Other: A/Ox4 Extrem: General: normal to inspection P
[2024-05-29 14:00] VITALS: BP 149/73; PULSE 88; RESP 18; TEMP 36.8; O2SAT 99
--- NOTE | 2024-05-29 14:08 | WPDGIPROGNO ---
Progress Note: A&P Assessment and Plan (1) Nausea: Code(s): R11.0 - Nausea Status: Acute Assessment and Plan: quite symptomatic despite medical management renal function improved egd tomorrow (2) Colitis: Code(s): K52.9 - Noninfective gastroenteritis and colitis, unspecified Status: Acute Assessment and Plan: culture negative, no c diff sigmoidoscopy tomorrow (3) ROMINA (acute kidney injury): Code(s): N17.9 - Acute kidney failure, unspecified Status: Acute Assessment and Plan: normal now (4) Diarrhea: Code(s): R19.7 - Diarrhea, unspecified Status: Acute (5) Chronic lower back pain: Code(s): M54.50 - Low back pain, unspecified; G89.29 - Other chronic pain Status: Acute Subjective Date/time seen: 05/29/24 14:08 Interval history: she is tearful because very nauseous after eating and abdominal discomfort she would like to find out what is wrong with me Review of Systems Review of Systems: All systems reviewed & are unremarkable except as noted in HPI and below Exam Const: General: uncomfortable Other: tearful HENMT: Face/Nose/Sinus: Normal nares present Eyes: General: appearance normal, both eyes and all related structures Sclera: sclerae normal Neck: Neck: supple Resp: Effort & Inspection: normal respiratory effort Auscultation: clear to auscultation bilaterally Cardio: Rate: regular rate Rhythm: regular rhythm Other: S1-S2 present without murmurs. GI: GI Palp: Yes Soft to palpation, Yes Tenderness to palpation present (GI) (mild ttp, no rebound) and No Guarding due to palpation present (GI) Auscultation: normal bowel sounds Skin: General skin exam: normal color Neuro: Cranial nerves: Yes Equal, round and reactive pupils present Speech: normal speech Motor exam (neuro): 5/5 motor strength present throughout Other: A/Ox4 Extrem: General: normal to inspection Psych: Affect: Anxious affect present Other: good insight and judgement, pleasant. Objective Data Vital Signs Vital Signs: Vital Signs - 24 hr 05/28/24 20:00 05/28/24 22:00 05/29/24 06:00 Temperature 97.7 F 97.6 F Pulse Rate 85 81 Respiratory Rate 20 20 Blood Pressure 150/66 H 134/54 L Pulse Oximetry 100 100 100 Oxygen Delivery Room Air 05/29/24 08:00 Temperature Pulse Rate Respiratory Rate Blood Pressure Pulse Oximetry Oxygen Delivery Room Air Intake/Output Intake/Output: Intake & Output 05/26/24 05/27/24 05/28/24 05/29/24 23:59 23:59 23:59 23:59 Intake Total 1150 1220 4025.8 1421.3 Output Total 10 Balance 1150 1220 4025.8 1411.3 Meds/Results Medications: Active Medications Generic Name Dose Route Start Last Admin Trade Name Freq PRN Reason Stop Dose Admin Acetaminophen 1,000 mg 05/26/24 20:25 Acetaminophen 500 Mg Tablet PO Q6H PRN pain or fever Hydrocodone Bitart/Acetaminophen 1 tab 05/26/24 20:30 05/28/24 20:30 Hydrocodone/Acetaminophen (*Crx) 5-325 Mg Tablet PO 1 tab Q6H PRN Administration Pain Rated 4-6 Bisacodyl 20 mg 05/29/24 17:00 Bisacodyl 5 Mg Tablet Ec PO 05/29/24 17:01 ONCE ONE Cholestyramine Resin 4 gm 05/29/24 10:00 05/29/24 11:25 Cholestyramine Light 4 Gm Powd.Pack PO Not Given QAM@1000 SHE Dicyclomine HCl 20 mg 05/26/24 20:25 05/29/24 08:35 Dicyclomine Hcl 10 Mg Capsule PO 20 mg QID PRN Administration cramping Hydralazine HCl 10 mg 05/26/24 20:31 Hydralazine Hcl 20 Mg/Ml Vial IV PUSH Q8H PRN Blood Pressure - High >180/90 Ceftriaxone Sodium 1 gm in 50 mls @ 100 mls/hr 05/27/24 17:00 05/28/24 16:42 Rocephin 1 Gm/Ns 50 Ml IVPB 100 mls/hr Q24H SHE Administration Metronidazole 500 mg in 100 mls @ 100 mls/hr 05/26/24 22:00 05/29/24 05:57 Flagyl 500 Mg/Iso Soln 100 Ml IVPB 100 mls/hr Q8H SHE Administration Sodium Chloride 1,000 mls @ 125 mls/hr 0
[2024-05-29] MEDS: BISACODYL 5 MG TABLET EC 20 MG PO (16:26)
[2024-05-29] MEDS: HYDROcodone/acetaminophen (*CRX) 5-325 MG TABLET 1 TAB PO ×2 (16:26→22:42)
[2024-05-29] MEDS: polyethylene glycoL 3350 238 GM BOTTLE PO (17:58)
[2024-05-29 22:04] VITALS: BP 111/82; PULSE 96; RESP 20; TEMP 36.4; O2SAT 100
[2024-05-30] VITALS (8 sets, daily range): BP systolic 123–154; BP diastolic 54–89; PULSE 82–88; RESP 17–22; TEMP 36.2–36.7; O2SAT 97–100
[2024-05-30] MEDS: metroNIDAZOLE 500 MG/ISO 100ML 500 MG/100 ML BAG 100 MG IVPB ×2 (06:34→13:19)
[2024-05-30] MEDS: ONDANSETRON INJ 4 MG/2 ML VIAL IV PUSH ×3 (06:34→20:13)
[2024-05-30] MEDS: HYDROcodone/acetaminophen (*CRX) 5-325 MG TABLET 1 TAB PO (06:34)
[2024-05-30] MEDS: LEVOTHYROXINE SODIUM 75 MCG TABLET PO (06:34)
[2024-05-30] MEDS: SODIUM CHLORIDE 0.9% IV 1,000 ML 125 ML IV CONT ×2 (13:18→17:40)
--- NOTE | 2024-05-30 13:58 | PM.IMPN ---
Progress Note: A&P Assessment and Plan (1) Colitis: Code(s): K52.9 - Noninfective gastroenteritis and colitis, unspecified Status: Acute Assessment and Plan: - History of IBS, diarrhea predominant without acute episodes of this severity in the past. Known diverticulosis with occasional flareups that have needed hospitalization in the past. - CT abd/pelvis (05/24): 1. Wall thickening of the transverse and descending colon, consistent with colitis. 2. Small sliding hiatal hernia. 3. Small pericardial effusion. - CT abd/pelvis (05/26): 1. No significant change since 05/24/2024 - GI consulted with sigmoidoscopy planned today. - Trialed cholestyramine, patient states made abd. pain worse, declined further dosing. - Day 5 of rocephin/flagyl. - Will check for ova/parasites - has been on flagyl so this is less likely, although there are some resistant giardia strains. - Continue IV fluids at this time, prepping for sigmoidoscopy. - Repeat labs am. - supportive care. - monitor I&Os. - Resume diet post sigmoidoscopy provided no acute findings to contradict. (2) ROMINA (acute kidney injury): Code(s): N17.9 - Acute kidney failure, unspecified Status: Acute Assessment and Plan: - Resolved romina with BUN/Cr 10/1.0. - Cont. to hold DOUGLAS-i with stable bp noted. (3) HTN (hypertension): Qualifiers: Hypertension type: secondary to endocrine disorders Qualified Code(s): I15.2 - Hypertension secondary to endocrine disorders Code(s): I10 - Essential (primary) hypertension Status: Acute Assessment and Plan: - Fairly well controlled. - Continue to hold BP meds. - monitor closely. Plan Carla Rosas is an 83 year old female with pmh IBS who presents with diarrhea for 3 weeks and diffuse colitis with unclear etiology - noted negative c diff, e. coli, salmonella/shigella, campylobacter. Carla has had no improvement with current therapies. She will be undergoing sigmoidoscopy this evening. Diet: Clear liquid, advance as tolerated post procedure. GI Prophylaxis: PO pantoprazole prn DVT Prophylaxis: SCDs Lines: peripheral Code Status: full code Time Spent With Patient Time with patient: 25 - 35 minutes Subjective Date/time seen: 05/30/24 13:58 Interval history: Carla states her abdomen is diffusely uncomfortable this morning. She has several bowel movements, ongoing - although with noted colon prep overnight. Review of Systems Review of Systems: All systems reviewed & are unremarkable except as noted in HPI and below Exam Narrative: GENERAL APPEARANCE: Appears to be in no acute distress. HEAD: normocephalic atraumatic EYES: PERRL, EOMI. Vision grossly intact. ENT: Hearing grossly intact, no nasal discharge NECK: Neck supple, trachea midline. CARDIAC: Normal S1/S2. Rhythm is regular. No murmurs, rubs, or gallops. No cyanosis or pallor. Extremities are warm and well perfused. LUNGS: Clear to auscultation without rales, rhonchi, wheezing or diminished breath sounds. Respirations even and unlabored. ABDOMEN: BS positive x 4 quadrants. Soft, nondistended, TTP across the entirety of the abdomen. MSK: No joint tenderness/swelling, fair strength in all extremities. PERIPHERAL VASCULAR: Peripheral pulses palpable. Normal perfusion, cap refill <2 seconds. No edema. NEURO: Follows commands. No focal deficits. SKIN: Spry without lesions or eruptions. PSYCH: Stable, no paranoia or delusional thinking. Objective Data Vital Signs Vital Signs: Vital Signs - 24 hr 05/29/24 14:00 05/29/24 22:04 05/29/24 20:00 Temperature 98.2 F 97.6 F Pulse Rate 88 96 Respiratory Rate 18 20 Blood Pressure 149/73 H 111/82 Pulse Oximetry 99 100 Oxygen Delivery Room Air 05/30/24 06:00 05/30/24 08:00 Temperature 97.1 F L Pulse Rate 83 Respiratory Rate 20 Blood Pressure 142/62 H Pulse Oximetry 100 Oxygen Delivery Room Air Intake/Output Intake/Ou
--- NOTE | 2024-05-30 14:51 | WPDANESEPPF ---
Anes - Initial Pre Proc Eval Procedure: Operation Date: 05/30/24 16:30 Proposed Procedures p Esophagogastroduodenoscopy - Mikel Miguel MD s Sigmoidoscopy - Mikel Miguel MD Date/Time: 05/30/24 14:51 Surgeon: Krzysztof Rajan MD Pre Op Diagnosis: Colitis/ROMINA Patient Data Age: 83 Gender: F Height: 1.63 m Weight: 70.5 kg Last Vital Signs Temp 36.2 C L 05/30/24 06:00 Pulse 83 05/30/24 06:00 Resp 20 05/30/24 06:00 BP 142/62 H 05/30/24 06:00 Pulse Ox 100 05/30/24 06:00 O2 Del Method Room Air 05/30/24 08:00 Allergies Allergy/AdvReac Type Severity Reaction Status Date / Time adhesive tape Allergy Mild Unknown Verified 05/30/24 14:48 iodine Allergy Mild Unknown Verified 05/30/24 14:48 Home Medications Medication Instructions Recorded Confirmed Type lisinopril 10 mg tablet 10 mg PO DAILY #90 tabs 03/06/24 05/26/24 Rx levothyroxine 75 mcg tablet 75 mcg PO DAILY #30 tabs 03/23/24 05/26/24 Rx dicyclomine 20 mg tablet 20 mg PO QID PRN cramping #30 tabs 05/21/24 05/26/24 Rx ciprofloxacin HCl 500 mg tablet 500 mg PO Q12H #20 tabs 05/24/24 05/26/24 Rx metronidazole 500 mg tablet 500 mg PO Q8H #30 tabs 05/24/24 05/26/24 Rx acetaminophen 500 mg tablet 1,000 mg PO Q6H PRN pain or fever 05/26/24 05/26/24 History melatonin 3 mg tablet 3 mg PO HS PRN Insomnia 05/26/24 05/26/24 History omeprazole 20 mg capsule,delayed 20 mg PO DAILY PRN Indigestion 05/26/24 05/26/24 History release Patient hx anesthesia problems: none Family hx anesthesia problems: none Results Review: All pre-operative results and documents have been reviewed as part of the pre-operative evaluation. 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ever Substance use type: does not use Do You Feel Safe in your Home?: Yes Lack of Transportation: No Lack of Food: Never True Current Housing: I Have Housing Concerned About Future Housing: No Difficulty Paying Gas/Electric Bills: No Difficulty Paying for Meds: No Currently Unemployed: No Education: Trade/Vocational Certificate Difficulty w/ Childcare or Family Care: No Living arrangements: with family Occupation/Education: retired Gender identity (if verbalized by the patient): Female Sexual Orientation (if Verbalized by the Patient): Straight or Heterosexual Spiritual care concerns: No Anes - Eval Final PreProcedure Day of Procedure 05/30/24 14:51 Patient weight: overweight Heart: regular rate and rhythm Lungs: clear to auscultation Airway: Mallampati scale class 1 Neurological: alert and oriented Last oral intake: >/= 8 hours ASA classification: III Emergent: no Anesthetic plan: proceed Anesthesia type and monitoring: general GIVS and standard monitoring Results Review: All pre-operative results and documents have been reviewed as part of the pre-operative evaluati
--- NOTE | 2024-05-30 15:48 | SUR.OPER ---
EGD ENDED AT 1545,SIGMOIDOSCOPY STARTED AT 1549
[2024-05-30] MEDS: LACTATED RINGERS 1,000 ML 150 ML IV CONT (16:00)
[2024-05-30] MEDS: MELATONIN 3 MG TABLET PO (20:13)
[2024-05-31] MEDS: SODIUM CHLORIDE 0.9% IV 1,000 ML 125 ML IV CONT ×2 (02:22→10:33)
[2024-05-31 05:54] LABS: Hematocrit 31.7 % (37.0-47.0); Hemoglobin 10.3 g/dL (12.0-15.0); Mean Corpuscular HGB Conc 32.5 g/dl (32-36); Mean Corpuscular Hemoglobin 30.2 pg (26-34); Mean Platelet Volume 11.2 fl (7.4-10.4); Platelet Count Result 155 k/mm3 (150-375); Red Blood Count 3.41 M/mm3 (4.2-5.4); Red Cell Distribution Width 13.1 % (11.5-14.5); White Blood Count 8.2 K/mm3 (4.5-10.0)
[2024-05-31 06:00] VITALS: BP 146/70; PULSE 98; RESP 20; TEMP 36.2; O2SAT 96
[2024-05-31 06:26] LABS: Alanine Aminotransferase 14 U/L (6-35); Albumin Level 2.9 g/dL (3.5-5.1); Alkaline Phosphatase 50 U/L (38-126); Anion Gap 10 mmol/L (4-12); Aspartate Amino Transferase 27 U/L (14-36); Bilirubin,Total 0.6 mg/dL (0.2-1.3); Blood Urea Nitrogen 5 mg/dL (7-17); CRP 6.1 mg/dL (<1.0); Calcium 7.7 mg/dL (8.4-10.2); Carbon Dioxide 17 mmol/L (22-30); Chloride 110 mmol/L (98-107); Estimated CRCL calculation 33 ml/min; Estimated Glomerular Filt Rate 53; Glucose 80 mg/dL (65-110); Magnesium 1.4 mg/dL (1.6-2.3); Sodium 137 mmol/L (137-145)
[2024-05-31] MEDS: ONDANSETRON INJ 4 MG/2 ML VIAL IV PUSH (06:32)
[2024-05-31] MEDS: LEVOTHYROXINE SODIUM 75 MCG TABLET PO (06:32)
[2024-05-31] MEDS: DICYCLOMINE HCL 10 MG CAPSULE 20 MG PO (06:32)
--- NOTE | 2024-05-31 09:03 | PM.IMPN ---
Progress Note: A&P Assessment and Plan (1) Colitis: Code(s): K52.9 - Noninfective gastroenteritis and colitis, unspecified Status: Acute Assessment and Plan: - History of IBS, diarrhea predominant without acute episodes of this severity in the past. Known diverticulosis with occasional flareups that have needed hospitalization in the past. - CT abd/pelvis (05/24): 1. Wall thickening of the transverse and descending colon, consistent with colitis. 2. Small sliding hiatal hernia. 3. Small pericardial effusion. - CT abd/pelvis (05/26): 1. No significant change since 05/24/2024 - GI consulted with sigmoidoscopy planned today. - Trialed cholestyramine, patient states made abd. pain worse, declined further dosing. -DC the antibiotics as colonoscopy was without findings of colitis - Will check for ova/parasites - has been on flagyl so this is less likely, although there are some resistant giardia strains. - Continue IV fluids at this time. Decreased to 50 cc an hour - Repeat labs am. - supportive care. - monitor I&Os. - Resume diet to bland low-fiber with dietary supplements -GI okayed starting Imodium -stool culture negative, pancreatic elastase pending (2) ROMINA (acute kidney injury): Code(s): N17.9 - Acute kidney failure, unspecified Status: Acute Assessment and Plan: - Resolved romina with BUN/Cr 10/1.0. -resuming DOUGLAS-inhibitor tomorrow -blood pressures reviewed 05-31 (3) HTN (hypertension): Qualifiers: Hypertension type: secondary to endocrine disorders Qualified Code(s): I15.2 - Hypertension secondary to endocrine disorders Code(s): I10 - Essential (primary) hypertension Status: Acute Assessment and Plan: - Fairly well controlled. - monitor closely. -resume lisinopril tomorrow Plan Carla Rosas is an 83 year old female with pmh IBS who presents with diarrhea for 3 weeks and diffuse colitis with unclear etiology - noted negative c diff, e. coli, salmonella/shigella, campylobacter. Carla has had no improvement with current therapies. She had EGD and colonoscopy completed yesterday which were both normal. She is being started on Imodium and we are decreasing her IV fluids. Diet: [place] diet DVT Prophylaxis: SCDs Lines: peripheral Code Status: full code Subjective Date/time seen: 05/31/24 09:03 Interval history: 83 y/o F presents here with diarrhea with PMH of chronic back pain, depression, GERD, HTN, hypothyroidism, IBS, osteoporosis, and rheumatoid arthritis. The patient presents here from home for further evaluation of diarrhea. She reports onset of diarrhea three weeks ago. Has been ongoing for the past 3 weeks. 05/31: Very pleasant lady who is discouraged as she still has a poor appetite with nausea and intermittent diarrhea. She does say that the diarrhea has slowed down since come to the hospital. EGD and colonoscopy were completed yesterday. She is still requiring IV fluids. Review of Systems Review of Systems: All systems reviewed & are unremarkable except as noted in HPI and below Exam Narrative: General: Appears unwell, frail appears stated age. HEENT: normocephalic, atraumatic. Mucous membranes moist. EOMI, PERRLA, bilateral sclera anicteric, no conjunctival injection. Neck supple without JVD, lymphadenopathy, or bruit. Respiratory: clear to auscultation bilaterally. No rales/rhonic/wheezes. Cardiovascular: Regular rate and rhythm, normal S1-S2 upon auscultation. No murmurs, rubs, or clicks. PMI is nondisplaced, capillary refill less than 3 second. Abdomen: Soft, round, no pulsatile masses, nondistended and minimally tender. No rebound, no guarding. No CVA tenderness, no hepatosplenomegaly. Bowel sounds present to all four quadrants. No high pitch or tinkling sounds, resonant to percussion. Extremities: No cyanosis, clubbing, or edema present. Pulses are palpable 2/2. Active ROM to all four extremities. Neuro: A
--- NOTE | 2024-05-31 09:26 | WPDANESPN ---
Anes - Prog Note Post-Op Date/Time: 05/31/24 09:26 Cardiovascular status: normal Respiratory status: normal Airway patency: baseline Mental status: baseline Post-Op hydration status: normal Vital Signs: Last Vital Signs Temp 36.2 C L 05/31/24 06:00 Pulse 98 05/31/24 06:00 Resp 20 05/31/24 06:00 BP 146/70 H 05/31/24 06:00 Pulse Ox 96 05/31/24 06:00 O2 Del Method Room Air 05/31/24 08:00 Pain Score (VAS): 3/10 I/O: Intake & Output 05/30/24 05/31/24 05/31/24 23:59 07:59 15:59 Intake Total 1105.8 1480 Balance 1105.8 1480 Laboratory Tests 05/31/24 05:47 05/31/24 05:47 05/31/24 05/31/24 05:47 09:13 WBC 8.2 RBC 3.41 L Hgb 10.3 L Hct 31.7 L MCV 93.0 MCH 30.2 MCHC 32.5 RDW 13.1 Plt Count 155 MPV 11.2 H Sodium 137 Potassium 3.0 L Chloride 110 H Carbon Dioxide 17 L Anion Gap 10 BUN 5 L D Creatinine 1.00 Estim Creat Clear Calc 33 Estimated GFR 53 L Glucose 80 Calcium 7.7 L Magnesium 1.4 L Total Bilirubin 0.6 AST 27 ALT 14 Alkaline Phosphatase 50 C-Reactive Protein 6.1 H Total Protein 6.0 L Albumin 2.9 L Stool Pancreat Elastase Pending O & P Trichrome Stain Pending O & P Concentrate Exam Pending Microbiology 05/28/24 05:36 Stool Escherichia coli Shiga Toxins - Final 05/28/24 05:36 Stool Salmonella/Shigella Culture - Final 05/28/24 05:36 Stool Campylobacter Antigen Assay - Final Post-procedural complaints: none Patient Feedback: Patient satisfied with anesthetic care.
[2024-05-31] MEDS: KCL 20 MEQ/SW 100 ML 100 ML 50 MEQ IVPB (10:25)
[2024-05-31] MEDS: MAGNESIUM SULF 2 GM/WATER 50ML 2 GM/50 ML BAG IVPB (10:26)
[2024-05-31] MEDS: POTASSIUM CHLORIDE 20 MEQ PACKET (FOR LIQUID) 40 MEQ PO (10:32)
[2024-05-31 15:00] VITALS: BP 127/52; PULSE 91; RESP 17; TEMP 36.6; O2SAT 97
--- NOTE | 2024-05-31 15:29 | WPDGIPROGNO ---
Progress Note: A&P Assessment and Plan (1) Nausea: Code(s): R11.0 - Nausea Status: Acute Assessment and Plan: egd no major findings still poor appetite diet as tolerated (2) Colitis: Code(s): K52.9 - Noninfective gastroenteritis and colitis, unspecified Status: Acute Assessment and Plan: s/p abx- discontinued since colonoscopy yesterday with normal appearing mucosa start lomotil prn stool culture negative, pancreatic elastase pending (3) Diarrhea: Code(s): R19.7 - Diarrhea, unspecified Status: Acute (4) Chronic lower back pain: Code(s): M54.50 - Low back pain, unspecified; G89.29 - Other chronic pain Status: Acute Subjective Date/time seen: 05/31/24 15:29 Interval history: egd/colonoscopy no major findings, no colitis, pending biopsies today had accident and would like something for diarrhea Review of Systems Review of Systems: All systems reviewed & are unremarkable except as noted in HPI and below Exam Const: General: uncomfortable Other: tearful HENMT: Face/Nose/Sinus: Normal nares present Eyes: General: appearance normal, both eyes and all related structures Sclera: sclerae normal Neck: Neck: supple Resp: Effort & Inspection: normal respiratory effort Auscultation: clear to auscultation bilaterally Cardio: Rate: regular rate Rhythm: regular rhythm GI: GI Palp: Yes Soft to palpation and No Guarding due to palpation present (GI) Auscultation: normal bowel sounds Skin: General skin exam: normal color Neuro: Cranial nerves: Yes Equal, round and reactive pupils present Speech: normal speech Motor exam (neuro): 5/5 motor strength present throughout Other: A/Ox4 Extrem: General: normal to inspection Psych: Affect: Anxious affect present Other: good insight and judgement, pleasant. Objective Data Vital Signs Vital Signs: Vital Signs - 24 hr 05/30/24 16:02 05/30/24 16:10 05/30/24 16:19 Temperature Pulse Rate 84 82 82 Respiratory Rate 22 H 20 17 Blood Pressure 142/89 H 132/81 154/75 H Pulse Oximetry 98 100 100 Oxygen Delivery Room Air Room Air Room Air 05/30/24 21:42 05/30/24 20:00 05/31/24 06:00 Temperature 97.6 F 97.2 F L Pulse Rate 83 83 98 Respiratory Rate 20 20 20 Blood Pressure 151/63 H 146/70 H Pulse Oximetry 100 100 96 Oxygen Delivery Room Air 05/31/24 08:00 05/31/24 15:00 Temperature 97.8 F Pulse Rate 91 Respiratory Rate 17 Blood Pressure 127/52 L Pulse Oximetry 97 Oxygen Delivery Room Air Intake/Output Intake/Output: Intake & Output 05/28/24 05/29/24 05/30/24 05/31/24 23:59 23:59 23:59 23:59 Intake Total 4075.8 3696.3 2305.8 2600 Output Total 10 Balance 4075.8 3686.3 2305.8 2600 Meds/Results Medications: Active Medications Generic Name Dose Route Start Last Admin Trade Name Freq PRN Reason Stop Dose Admin Acetaminophen 1,000 mg 05/26/24 20:25 Acetaminophen 500 Mg Tablet PO Q6H PRN pain or fever Hydrocodone Bitart/Acetaminophen 1 tab 05/26/24 20:30 05/30/24 06:34 Hydrocodone/Acetaminophen (*Crx) 5-325 Mg Tablet PO 1 tab Q6H PRN Administration Pain Rated 4-6 Dicyclomine HCl 20 mg 05/26/24 20:25 05/31/24 06:32 Dicyclomine Hcl 10 Mg Capsule PO 20 mg QID PRN Administration cramping Hydralazine HCl 10 mg 05/26/24 20:31 Hydralazine Hcl 20 Mg/Ml Vial IV PUSH Q8H PRN Blood Pressure - High >180/90 Sodium Chloride 1,000 mls @ 125 mls/hr 05/27/24 15:55 05/31/24 10:33 Normal Saline Iv IV CONT 125 mls/hr .Q8H SHE Administration Levothyroxine Sodium 75 mcg 05/27/24 06:30 05/31/24 06:32 Levothyroxine Sodium 75 Mcg Tablet PO 75 mcg DAILY@0630 SHE Administration Magnesium Oxide 400 mg 06/01/24 09:00 Magnesium Oxide 400 Mg Tablet PO DAILY SHE Melatonin 3 mg 05/26/24 20:25 05/30/24 20:13 Melatonin 3 Mg Tablet PO 3 mg HS PRN Administration
--- NOTE | 2024-05-31 16:34 | PC.NURSE ---
Pt does not tolerate the IV potassium. Hospitalist made aware.
[2024-05-31] MEDS: DIPHENOXYLATE/ATROPINE (*CRX) 2.5 MG TABLET 1 TABLET PO ×2 (16:44→20:10)
[2024-05-31] MEDS: MELATONIN 3 MG TABLET PO (20:10)
[2024-05-31 21:56] VITALS: BP 133/58; PULSE 79; RESP 20; TEMP 36.8; O2SAT 98
[2024-05-31] MEDS: SODIUM CHLORIDE 0.9% IV 1,000 ML 50 ML IV CONT (23:17)
[2024-06-01 06:00] VITALS: BP 148/65; PULSE 102; RESP 20; TEMP 36.1; O2SAT 97
[2024-06-01] MEDS: LEVOTHYROXINE SODIUM 75 MCG TABLET PO (06:05)
[2024-06-01 06:20] LABS: Hematocrit 34.1 % (37.0-47.0); Hemoglobin 11.3 g/dL (12.0-15.0); Mean Corpuscular HGB Conc 33.1 g/dl (32-36); Mean Corpuscular Hemoglobin 30.8 pg (26-34); Mean Corpuscular Volume 92.9 fl (80-100); Mean Platelet Volume 11.2 fl (7.4-10.4); Platelet Count Result 171 k/mm3 (150-375); Red Blood Count 3.67 M/mm3 (4.2-5.4); Red Cell Distribution Width 13.3 % (11.5-14.5); White Blood Count 10.3 K/mm3 (4.5-10.0)
[2024-06-01 06:37] LABS: Alanine Aminotransferase 13 U/L (6-35); Albumin Level 3.3 g/dL (3.5-5.1); Alkaline Phosphatase 53 U/L (38-126); Anion Gap 10 mmol/L (4-12); Aspartate Amino Transferase 28 U/L (14-36); Bilirubin,Total 0.7 mg/dL (0.2-1.3); Blood Urea Nitrogen 6 mg/dL (7-17); Carbon Dioxide 21 mmol/L (22-30); Chloride 108 mmol/L (98-107); Estimated CRCL calculation 37 ml/min; Estimated Glomerular Filt Rate 60; Glucose 93 mg/dL (65-110); Magnesium 2.1 mg/dL (1.6-2.3); Potassium 3.6 mmol/L (3.4-5.0); Sodium 139 mmol/L (137-145)
[2024-06-01] MEDS: lisinopriL 10 MG TABLET PO (08:13)
[2024-06-01] MEDS: MAGNESIUM OXIDE 400 MG TABLET PO (08:13)
[2024-06-01] MEDS: DIPHENOXYLATE/ATROPINE (*CRX) 2.5 MG TABLET 1 TABLET PO ×2 (08:14→20:37)
--- NOTE | 2024-06-01 10:18 | PCNFU ---
Nutrition Follow-Up Complete: Inadequate oral intake related to colitis as evidenced by patient report Goal: Adequate PO intake at least 75% meals and supplements Patient is progressing towards goal. We will continue current goal. Pt current nutrition is Low Fiber with Ensure Compact BID. Last recorded weight is 70.5 kg, no new weight to report. Bowel Motility: +BM reported 06/01 Labs Reviewed:Alb 3.3, Hct 34.1,Hgb 11.3 Meds Noted: Normal Saline, Mag-ox, Synthroid. Skin: WNL Additional Notes: Patient remains on Low Fiber diet. Intake today fair, 1/2 cheese omelette, 1/2 oatmeal and some apple juice. Patient states she did have diarrhea after breakfast. She is drinking diet supplements providing an additional 220 kcals and 9 gm protein. Agree with diet orders. Monitoring intakes, weights, labs, supplement tolerance, plan of care Follow up in 5 days
--- NOTE | 2024-06-01 11:12 | PM.IMPN ---
Progress Note: A&P Assessment and Plan (1) Colitis: Code(s): K52.9 - Noninfective gastroenteritis and colitis, unspecified Status: Acute Assessment and Plan: 06/01/24: Continue low-fiber diet Continue IV fluids at 50 may mL/hr Continue to monitor I&O Continue Imodium Awaiting stool culture for ova and parasites Continue to monitor electrolytes GI following (2) ROMINA (acute kidney injury): Code(s): N17.9 - Acute kidney failure, unspecified Status: Acute Assessment and Plan: 06/01/24: Resolved Currently back on lisinopril Creatinine 0.9 (3) HTN (hypertension): Qualifiers: Hypertension type: secondary to endocrine disorders Qualified Code(s): I15.2 - Hypertension secondary to endocrine disorders Code(s): I10 - Essential (primary) hypertension Status: Acute Assessment and Plan: 06/01/24: Blood pressure ranging 127/52 to 148/65 Continue lisinopril Time Spent With Patient Time with patient: 25 - 35 minutes Subjective Date/time seen: 06/01/24 11:12 Interval history: Patient still reporting diarrhea and fatigue. She states that she is not been able to take in a lot of food or fluid. She did try eating a little bit of breakfast this morning however had another bout of diarrhea. She denies any fever, chills, nausea, vomiting, abdominal pain, chest pain, shortness a breath. Labs and imaging reviewed. Review of Systems Review of Systems: All systems reviewed & are unremarkable except as noted in HPI and below Constitutional: Constitutional: Reports as per HPI and Reports no additional constitutional complaints Eyes: Eyes: Reports as per HPI and Reports no additional eye complaints ENT: Reports system reviewed and no additional complaints, except as documented and Reports as per HPI Cardiovascular: Cardiovascular: Reports as per HPI and Reports no additional cardiovascular complaints Respiratory: Respiratory: Reports as per HPI and Reports no additional respiratory complaints Gastrointestinal: Gastrointestinal: Reports as per HPI and Reports no additional gastrointestinal complaints Genitourinary: Genitourinary: Reports no additional female genitourinary complaints and Reports as per HPI Musculoskeletal: Musculoskeletal: Reports no additional musculoskeletal complaints and Reports as per HPI Integumentary/Breasts: Skin/Breast: Reports system reviewed and no additional complaints, except as docu and Reports as per HPI Neurologic: Reports system reviewed and no additional complaints, except as documented and Reports as per HPI Psychiatric: Psychiatric: Reports no additional psychiatric complaints and Reports as per HPI Exam Narrative: General: In no acute distress, fatigued Head: atraumatic, no encephalopathy Eyes: EOMI, PERRLA, sclera clear ENT: moist mucous membranes, nasal passages clear Neck: supple, no JVD, no adenopathy, trachea midline Cardiac: Normal S1 and S2. RRR, No murmur, gallops or friction rubs, peripheral pulses intact. Respiratory: Lungs clear to auscultation, no adventitious lung sounds, currently on room air Gastrointestinal: soft, non-distended, non-tender, hyperactive bowel sounds. Reports diarrhea this morning : voiding without difficulty. Extremities: moves all extremities well, no edema, good ROM, strength 5/5 Skin: clean, dry, intact. No wounds or lesions. Neuro: Alert and oriented x4, cranial nerves intact, no neuro deficits. Psych: normal mood, normal affect, interactive Objective Data Vital Signs Vital Signs: Vital Signs - 24 hr 05/31/24 15:00 05/31/24 20:17 05/31/24 21:56 Temperature 97.8 F 98.2 F Pulse Rate 91 79 Respiratory Rate 17 20 Blood Pressure 127/52 L 133/58 L Pulse Oximetry 97 98 Oxygen Delivery Room Air 06/01/24 06:00 Temperature 96.9 F L Pulse Rate 102 H Respiratory Rate 20 Blood Pressure 148/65 H Pulse Oximetry 97 Oxygen Delivery Intake/Ou
[2024-06-01] MEDS: DICYCLOMINE HCL 10 MG CAPSULE 20 MG PO (11:46)
[2024-06-01 14:00] VITALS: BP 134/59; PULSE 88; RESP 18; TEMP 36.3; O2SAT 97
--- NOTE | 2024-06-01 14:44 | WPDGIPROGNO ---
Progress Note: A&P Assessment and Plan (1) Nausea: Code(s): R11.0 - Nausea Status: Acute Assessment and Plan: egd no major findings still poor appetite diet as tolerated will add simethicone (she was taking at home) (2) Colitis: Code(s): K52.9 - Noninfective gastroenteritis and colitis, unspecified Status: Acute Assessment and Plan: s/p abx- discontinued since colonoscopy with normal appearing mucosa continue lomotil prn stool culture negative, pancreatic elastase pending (3) Diarrhea: Code(s): R19.7 - Diarrhea, unspecified Status: Acute Subjective Date/time seen: 06/01/24 14:44 Interval history: still with generalized weakness, started using lomotil trying to eat more, less nausea Review of Systems Review of Systems: All systems reviewed & are unremarkable except as noted in HPI and below Exam Const: General: uncomfortable HENMT: Face/Nose/Sinus: Normal nares present Eyes: General: appearance normal, both eyes and all related structures Sclera: sclerae normal Neck: Neck: supple Resp: Effort & Inspection: normal respiratory effort Auscultation: clear to auscultation bilaterally Cardio: Rate: regular rate Rhythm: regular rhythm GI: GI Palp: Yes Soft to palpation and No Guarding due to palpation present (GI) Auscultation: normal bowel sounds Skin: General skin exam: normal color Neuro: Cranial nerves: Yes Equal, round and reactive pupils present Speech: normal speech Motor exam (neuro): 5/5 motor strength present throughout Other: A/Ox4 Extrem: General: normal to inspection Psych: Affect: Anxious affect present Other: good insight and judgement, pleasant. Objective Data Vital Signs Vital Signs: Vital Signs - 24 hr 05/31/24 15:00 05/31/24 20:17 05/31/24 21:56 Temperature 97.8 F 98.2 F Pulse Rate 91 79 Respiratory Rate 17 20 Blood Pressure 127/52 L 133/58 L Pulse Oximetry 97 98 Oxygen Delivery Room Air 06/01/24 06:00 06/01/24 14:00 Temperature 96.9 F L 97.4 F L Pulse Rate 102 H 88 Respiratory Rate 20 18 Blood Pressure 148/65 H 134/59 L Pulse Oximetry 97 97 Oxygen Delivery Intake/Output Intake/Output: Intake & Output 08/2005/30/24 05/31/24 06/01/24 23:59 23:59 23:59 23:59 Intake Total 3696.3 2305.8 3950.0 480 Output Total 10 Balance 3686.3 2305.8 3950.0 480 Meds/Results Medications: Active Medications Generic Name Dose Route Start Last Admin Trade Name Freq PRN Reason Stop Dose Admin Acetaminophen 1,000 mg 05/26/24 20:25 Acetaminophen 500 Mg Tablet PO Q6H PRN pain or fever Hydrocodone Bitart/Acetaminophen 1 tab 05/26/24 20:30 05/30/24 06:34 Hydrocodone/Acetaminophen (*Crx) 5-325 Mg Tablet PO 1 tab Q6H PRN Administration Pain Rated 4-6 Dicyclomine HCl 20 mg 05/26/24 20:25 06/01/24 11:46 Dicyclomine Hcl 10 Mg Capsule PO 20 mg QID PRN Administration cramping Diphenoxylate HCl/Atropine 1 tablet 05/31/24 15:29 06/01/24 08:14 Diphenoxylate/Atropine (*Crx) 2.5 Mg Tablet PO 1 tablet PRN PRN Administration Diarrhea Hydralazine HCl 10 mg 05/26/24 20:31 Hydralazine Hcl 20 Mg/Ml Vial IV PUSH Q8H PRN Blood Pressure - High >180/90 Sodium Chloride 1,000 mls @ 50 mls/hr 05/27/24 15:55 05/31/24 23:17 Normal Saline Iv IV CONT 50 mls/hr .Q20H SHE Administration Levothyroxine Sodium 75 mcg 05/27/24 06:30 06/01/24 06:05 Levothyroxine Sodium 75 Mcg Tablet PO 75 mcg DAILY@0630 SHE Administration Lisinopril 10 mg 06/01/24 09:00 06/01/24 08:13 Lisinopril 10 Mg Tablet PO 10 mg DAILY SHE Administration Magnesium Oxide 400 mg 06/01/24 09:00 06/01/24 08:13 Magnesium Oxide 400 Mg Tablet PO 400 mg DAILY SHE Administration Melatonin 3 mg 05/26/24 20:25 05/31/24 20:10 Melatonin 3 Mg Tablet PO 3 mg HS PRN Administration Insomnia Morphine Sulfate 2 mg 05/26
[2024-06-01] MEDS: SIMETHICONE 125 MG CHEW TAB PO ×2 (15:37→20:37)
[2024-06-01] MEDS: SODIUM CHLORIDE 0.9% IV 1,000 ML 50 ML IV CONT (19:25)
[2024-06-01 21:27] VITALS: BP 144/56; PULSE 88; RESP 18; TEMP 36.4; O2SAT 96
[2024-06-01] MEDS: HYDROcodone/acetaminophen (*CRX) 5-325 MG TABLET 1 TAB PO (23:38)
[2024-06-02] MEDS: LEVOTHYROXINE SODIUM 75 MCG TABLET PO (05:59)
[2024-06-02 06:00] VITALS: BP 140/62; PULSE 91; RESP 18; TEMP 36.6; O2SAT 96
[2024-06-02] MEDS: SIMETHICONE 125 MG CHEW TAB PO ×3 (06:01→20:04)
[2024-06-02] MEDS: lisinopriL 10 MG TABLET PO (08:17)
[2024-06-02] MEDS: MAGNESIUM OXIDE 400 MG TABLET PO (08:17)
--- NOTE | 2024-06-02 10:37 | WPDGIPROGNO ---
Progress Note: A&P Assessment and Plan (1) Nausea: Code(s): R11.0 - Nausea Status: Acute Assessment and Plan: egd no major findings she is trying to eat appetite added simethicone (she was taking at home) (2) Colitis: Code(s): K52.9 - Noninfective gastroenteritis and colitis, unspecified Status: Acute Assessment and Plan: s/p abx- discontinued since colonoscopy with normal appearing mucosa continue lomotil prn stool culture negative, pancreatic elastase still pending (3) Diarrhea: Code(s): R19.7 - Diarrhea, unspecified Status: Acute Subjective Date/time seen: 06/02/24 10:37 Interval history: no diarrhea today, trying to eat more feeling better Review of Systems Review of Systems: All systems reviewed & are unremarkable except as noted in HPI and below Exam Const: General: uncomfortable HENMT: Face/Nose/Sinus: Normal nares present Eyes: General: appearance normal, both eyes and all related structures Sclera: sclerae normal Neck: Neck: supple Resp: Effort & Inspection: normal respiratory effort Auscultation: clear to auscultation bilaterally Cardio: Rate: regular rate Rhythm: regular rhythm GI: GI Palp: Yes Soft to palpation and No Guarding due to palpation present (GI) Auscultation: normal bowel sounds Skin: General skin exam: normal color Neuro: Cranial nerves: Yes Equal, round and reactive pupils present Speech: normal speech Motor exam (neuro): 5/5 motor strength present throughout Other: A/Ox4 Extrem: General: normal to inspection Psych: Affect: Anxious affect present Other: good insight and judgement, pleasant. Objective Data Vital Signs Vital Signs: Vital Signs - 24 hr 06/01/24 14:00 06/01/24 20:00 06/01/24 21:27 Temperature 97.4 F L 97.5 F L Pulse Rate 88 88 Respiratory Rate 18 18 Blood Pressure 134/59 L 144/56 H Pulse Oximetry 97 96 Oxygen Delivery Room Air 06/02/24 06:00 Temperature 97.8 F Pulse Rate 91 Respiratory Rate 18 Blood Pressure 140/62 Pulse Oximetry 96 Oxygen Delivery Intake/Output Intake/Output: Intake & Output 05/30/24 05/31/24 06/01/24 06/02/24 23:59 23:59 23:59 23:59 Intake Total 2305.8 3950.0 1720 500 Output Total 400 Balance 2305.8 3950.0 1720 100 Meds/Results Medications: Active Medications Generic Name Dose Route Start Last Admin Trade Name Freq PRN Reason Stop Dose Admin Acetaminophen 1,000 mg 05/26/24 20:25 Acetaminophen 500 Mg Tablet PO Q6H PRN pain or fever Hydrocodone Bitart/Acetaminophen 1 tab 05/26/24 20:30 06/01/24 23:38 Hydrocodone/Acetaminophen (*Crx) 5-325 Mg Tablet PO 1 tab Q6H PRN Administration Pain Rated 4-6 Dicyclomine HCl 20 mg 05/26/24 20:25 06/01/24 11:46 Dicyclomine Hcl 10 Mg Capsule PO 20 mg QID PRN Administration cramping Diphenoxylate HCl/Atropine 1 tablet 05/31/24 15:29 06/01/24 20:37 Diphenoxylate/Atropine (*Crx) 2.5 Mg Tablet PO 1 tablet PRN PRN Administration Diarrhea Hydralazine HCl 10 mg 05/26/24 20:31 Hydralazine Hcl 20 Mg/Ml Vial IV PUSH Q8H PRN Blood Pressure - High >180/90 Sodium Chloride 1,000 mls @ 50 mls/hr 05/27/24 15:55 06/01/24 19:25 Normal Saline Iv IV CONT 50 mls/hr .Q20H SHE Administration Levothyroxine Sodium 75 mcg 05/27/24 06:30 06/02/24 05:59 Levothyroxine Sodium 75 Mcg Tablet PO 75 mcg DAILY@0630 SHE Administration Lisinopril 10 mg 06/01/24 09:00 06/02/24 08:17 Lisinopril 10 Mg Tablet PO 10 mg DAILY SHE Administration Magnesium Oxide 400 mg 06/01/24 09:00 06/02/24 08:17 Magnesium Oxide 400 Mg Tablet PO 400 mg DAILY SHE Administration Melatonin 3 mg 05/26/24 20:25 05/31/24 20:10 Melatonin 3 Mg Tablet PO 3 mg HS PRN Administration Insomnia Morphine Sulfate 2 mg 05/26/24 20:30 Morphine Sulfate (*Crx) 2 Mg/Ml Inj IV PUSH Q4H PRN Pain Rated 7-
--- NOTE | 2024-06-02 11:40 | PM.IMPN ---
Progress Note: A&P Assessment and Plan (1) Colitis: Code(s): K52.9 - Noninfective gastroenteritis and colitis, unspecified Status: Acute Assessment and Plan: 06/01/24: Continue low-fiber diet Continue IV fluids at 50 may mL/hr Continue to monitor I&O Continue Imodium Awaiting stool culture for ova and parasites Continue to monitor electrolytes GI following 06/02/24: Ova and Parasite labs pending Continue Imodium Monitor electrolytes GI following Increase diet as tolerated Continue low fiber diet Stop IV fluids for now, can restart if signs/symptoms of dehydration. 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 She states that she is not been able to take in a lot of food or fluid. She did try eating a little bit of breakfast this morning however had another bout of diarrhea. She denies any fever, chills, nausea, vomiting, abdominal pain, chest pain, shortness a breath. Labs and imaging reviewed. 06/02/24: Still not tolerating much po intake. She denies any other complaints. Labs reviewed. Review of Systems Review of Systems: All systems reviewed & are unremarkable except as noted in HPI and below Constitutional: Constitutional: Reports as per HPI and Reports no additional constitutional complaints Eyes: Eyes: Reports as per HPI and Reports no additional eye complaints ENT: Reports system reviewed and no additional complaints, except as documented and Reports as per HPI Cardiovascular: Cardiovascular: Reports as per HPI and Reports no additional cardiovascular complaints Respiratory: Respiratory: Reports as per HPI and Reports no additional respiratory complaints Gastrointestinal: Gastrointestinal: Reports as per HPI and Reports no additional gastrointestinal complaints Genitourinary: Genitourinary: Reports no additional female genitourinary complaints and Reports as per HPI Musculoskeletal: Musculoskeletal: Reports no additional musculoskeletal complaints and Reports as per HPI Integumentary/Breasts: Skin/Breast: Reports system reviewed and no additional complaints, except as docu and Reports as per HPI Neurologic: Reports system reviewed and no additional complaints, except as documented and Reports as per HPI Psychiatric: Psychiatric: Reports no additional psychiatric complaints and Reports as per HPI Exam Narrative: General: In no acute distress, fatigued Cardiac: Normal S1 and S2. RRR, No murmur, gallops or friction rubs, peripheral pulses intact. Respiratory: Lungs clear to auscultation, no adventitious lung sounds, currently on room air Gastrointestinal: soft, non-distended, non-tender, hyperactive bowel sounds. Extremities: mild pedal swelling : voiding without difficulty. Neuro: Alert and oriented x4 Objective Data Vital Signs Vital Signs: Vital Signs - 24 hr 06/01/24 14:00 06/01/24 20:00 06/01/24 21:27 Temperature 97.4 F L 97.5 F L Pulse Rate 88 88 Respiratory Rate 18 18 Blood Pressure 134/59 L 144/56 H Pulse Oximetry 97 96 Oxygen Delivery Room Air 06/02/24 06:00 Temperature 97.8 F Pulse Rate 91 Respiratory Rate 18 Blood Pressure 140/62 Pulse Oximetry 96 Oxygen Del
[2024-06-02 12:48] LABS: Basophils Absolute Auto 0.1 K/mm3 (0.0-0.1); Basophils Percent Auto 0.6 % (0.2-1.2); Eosinophils Absolute Auto 0.3 K/mm3 (0-0.3); Eosinophils Percent Auto 3.1 % (0-4.4); Hematocrit 34.5 % (37.0-47.0); Hemoglobin 11.2 g/dL (12.0-15.0); Immature Granulocyte Absolute 0.05 K/mm3 (0.00-0.031); Immature Granulocyte Percent A 0.6 % (0-0.5); Lymphocytes Absolute Auto 1.24 K/mm3 (0.9-3.2); Lymphocytes Percent Auto 13.7 % (18.3-44.2); Mean Corpuscular HGB Conc 32.5 g/dl (32-36); Mean Corpuscular Hemoglobin 30.4 pg (26-34); Mean Corpuscular Volume 93.5 fl (80-100); Mean Platelet Volume 11.2 fl (7.4-10.4); Monocytes Absolute Auto 0.7 K/mm3 (0.1-0.6); Monocytes Percent Auto 8.2 % (2.6-8.5); Neutrophils Absolute Auto 6.7 K/mm3 (1.3-6.7); Neutrophils Percent Auto 73.8 % (45.5-73.1); Platelet Count Result 176 k/mm3 (150-375); Red Blood Count 3.69 M/mm3 (4.2-5.4); Red Cell Distribution Width 13.6 % (11.5-14.5); White Blood Count 9.1 K/mm3 (4.5-10.0)
[2024-06-02 12:57] LABS: Alanine Aminotransferase 16 U/L (6-35); Albumin Level 3.3 g/dL (3.5-5.1); Alkaline Phosphatase 58 U/L (38-126); Anion Gap 7 mmol/L (4-12); Aspartate Amino Transferase 32 U/L (14-36); Bilirubin,Total 0.4 mg/dL (0.2-1.3); Blood Urea Nitrogen 7 mg/dL (7-17); Carbon Dioxide 24 mmol/L (22-30); Chloride 107 mmol/L (98-107); Estimated CRCL calculation 37 ml/min; Estimated Glomerular Filt Rate 60; Glucose 107 mg/dL (65-110); Potassium 3.3 mmol/L (3.4-5.0); Sodium 138 mmol/L (137-145)
[2024-06-02 14:50] VITALS: BP 145/63; PULSE 87; RESP 16; TEMP 36.6; O2SAT 98
[2024-06-02] MEDS: POTASSIUM CHLORIDE 20 MEQ PACKET (FOR LIQUID) PO (15:56)
[2024-06-02 20:00] VITALS: BP 154/67; PULSE 100; RESP 17; TEMP 36.8; O2SAT 96
[2024-06-02] MEDS: MELATONIN 3 MG TABLET PO (20:04)
[2024-06-03] MEDS: guaiFENesin/DEXTROMETHORPHAN 10 ML UDC PO ×2 (00:02→21:13)
[2024-06-03 05:52] VITALS: BP 135/58; PULSE 80; RESP 16; TEMP 36.8; O2SAT 96
[2024-06-03 05:58] LABS: Basophils Absolute Auto 0.1 K/mm3 (0.0-0.1); Basophils Percent Auto 0.6 % (0.2-1.2); Eosinophils Absolute Auto 0.3 K/mm3 (0-0.3); Eosinophils Percent Auto 3.4 % (0-4.4); Hematocrit 31.1 % (37.0-47.0); Hemoglobin 10.4 g/dL (12.0-15.0); Immature Granulocyte Absolute 0.05 K/mm3 (0.00-0.031); Immature Granulocyte Percent A 0.6 % (0-0.5); Lymphocytes Absolute Auto 1.71 K/mm3 (0.9-3.2); Lymphocytes Percent Auto 20.2 % (18.3-44.2); Mean Corpuscular HGB Conc 33.4 g/dl (32-36); Mean Corpuscular Hemoglobin 30.5 pg (26-34); Mean Corpuscular Volume 91.2 fl (80-100); Mean Platelet Volume 11.4 fl (7.4-10.4); Monocytes Absolute Auto 0.8 K/mm3 (0.1-0.6); Monocytes Percent Auto 9.6 % (2.6-8.5); Neutrophils Absolute Auto 5.6 K/mm3 (1.3-6.7); Neutrophils Percent Auto 65.6 % (45.5-73.1); Platelet Count Result 198 k/mm3 (150-375); Red Blood Count 3.41 M/mm3 (4.2-5.4); Red Cell Distribution Width 13.2 % (11.5-14.5); White Blood Count 8.5 K/mm3 (4.5-10.0)
[2024-06-03] MEDS: LEVOTHYROXINE SODIUM 75 MCG TABLET PO (06:07)
[2024-06-03] MEDS: SIMETHICONE 125 MG CHEW TAB PO ×3 (06:08→21:03)
[2024-06-03] MEDS: DIPHENOXYLATE/ATROPINE (*CRX) 2.5 MG TABLET 1 TABLET PO ×3 (06:08→18:58)
[2024-06-03 06:14] LABS: Alanine Aminotransferase 14 U/L (6-35); Albumin Level 3.3 g/dL (3.5-5.1); Alkaline Phosphatase 57 U/L (38-126); Anion Gap 9 mmol/L (4-12); Aspartate Amino Transferase 25 U/L (14-36); Bilirubin,Total 0.6 mg/dL (0.2-1.3); Blood Urea Nitrogen 7 mg/dL (7-17); Calcium 8.2 mg/dL (8.4-10.2); Carbon Dioxide 22 mmol/L (22-30); Chloride 105 mmol/L (98-107); Estimated CRCL calculation 37 ml/min; Estimated Glomerular Filt Rate 60; Glucose 103 mg/dL (65-110); Potassium 3.6 mmol/L (3.4-5.0); Sodium 136 mmol/L (137-145)
[2024-06-03 09:10] VITALS: PULSE 80; RESP 16; O2SAT 96
[2024-06-03] MEDS: MAGNESIUM OXIDE 400 MG TABLET PO (09:10)
[2024-06-03] MEDS: lisinopriL 10 MG TABLET PO (09:10)
[2024-06-03 14:00] VITALS: BP 155/64; PULSE 83; RESP 18; TEMP 36.6; O2SAT 96
--- NOTE | 2024-06-03 14:26 | WPDGIPROGNO ---
Progress Note: A&P Assessment and Plan (1) Lymphocytic colitis: Code(s): K52.832 - Lymphocytic colitis Status: Acute Assessment and Plan: reviewed path report of colonoscopy and diagnostic with lymphocytic colitis- this can explain diarrhea will start now on budesonide 6 mg daily- this should improve her diarrhea, then she can go home and follow-up office lomotil as needed only if diarrhea egd normal- no h pylori, no celiac (2) Nausea: Code(s): R11.0 - Nausea Status: Acute Assessment and Plan: egd no major findings (3) Diarrhea: Code(s): R19.7 - Diarrhea, unspecified Status: Acute Assessment and Plan: probably from lymphocytic colitis Subjective Date/time seen: 06/03/24 14:26 Interval history: today had loose stool again, used lomotil Review of Systems Review of Systems: All systems reviewed & are unremarkable except as noted in HPI and below Exam Const: General: uncomfortable HENMT: Face/Nose/Sinus: Normal nares present Eyes: General: appearance normal, both eyes and all related structures Sclera: sclerae normal Neck: Neck: supple Resp: Effort & Inspection: normal respiratory effort Auscultation: clear to auscultation bilaterally Cardio: Rate: regular rate Rhythm: regular rhythm GI: GI Palp: Yes Soft to palpation and No Guarding due to palpation present (GI) Auscultation: normal bowel sounds Skin: General skin exam: normal color Neuro: Cranial nerves: Yes Equal, round and reactive pupils present Speech: normal speech Motor exam (neuro): 5/5 motor strength present throughout Other: A/Ox4 Extrem: General: normal to inspection Psych: Affect: Anxious affect present Other: good insight and judgement, pleasant. Objective Data Vital Signs Vital Signs: Vital Signs - 24 hr 06/02/24 14:50 06/02/24 20:00 06/02/24 20:00 Temperature 97.9 F 98.3 F Pulse Rate 87 100 Respiratory Rate 16 17 Blood Pressure 145/63 H 154/67 H Pulse Oximetry 98 96 Oxygen Delivery Room Air 06/03/24 05:52 Temperature 98.2 F Pulse Rate 80 Respiratory Rate 16 Blood Pressure 135/58 L Pulse Oximetry 96 Oxygen Delivery Intake/Output Intake/Output: Intake & Output 05/31/24 06/01/24 06/02/24 06/03/24 23:59 23:59 23:59 23:59 Intake Total 3950.0 1720 2230 Output Total 700 Balance 3950.0 1720 1530 Meds/Results Medications: Active Medications Generic Name Dose Route Start Last Admin Trade Name Freq PRN Reason Stop Dose Admin Acetaminophen 1,000 mg 05/26/24 20:25 Acetaminophen 500 Mg Tablet PO Q6H PRN pain or fever Hydrocodone Bitart/Acetaminophen 1 tab 05/26/24 20:30 06/01/24 23:38 Hydrocodone/Acetaminophen (*Crx) 5-325 Mg Tablet PO 1 tab Q6H PRN Administration Pain Rated 4-6 Budesonide 6 mg 06/04/24 09:00 Budesonide 3 Mg Cap.Sr.24h PO QAM SHE Dicyclomine HCl 20 mg 05/26/24 20:25 06/01/24 11:46 Dicyclomine Hcl 10 Mg Capsule PO 20 mg QID PRN Administration cramping Diphenoxylate HCl/Atropine 1 tablet 05/31/24 15:29 06/03/24 09:10 Diphenoxylate/Atropine (*Crx) 2.5 Mg Tablet PO 1 tablet PRN PRN Administration Diarrhea Guaifenesin/Dextromethorphan 10 ml 06/02/24 23:36 06/03/24 00:02 Guaifenesin/Dextromethorphan 10 Ml Udc PO 10 ml Q4H PRN Administration Cough Hydralazine HCl 10 mg 05/26/24 20:31 Hydralazine Hcl 20 Mg/Ml Vial IV PUSH Q8H PRN Blood Pressure - High >180/90 Levothyroxine Sodium 75 mcg 05/27/24 06:30 06/03/24 06:07 Levothyroxine Sodium 75 Mcg Tablet PO 75 mcg DAILY@0630 SHE Administration Lisinopril 10 mg 06/01/24 09:00 06/03/24 09:10 Lisinopril 10 Mg Tablet PO 10 mg DAILY SHE Administration Magnesium Oxide 400 mg 06/01/24 09:00 06/03/24 09:10 Magnesium Oxide 400 Mg Tablet PO 400 mg DAILY SHE Administration Melatonin 3 mg 05/26/24 20:25 06/02/24 20:04 Me
--- NOTE | 2024-06-03 15:19 | PM.IMPN ---
Progress Note: A&P Assessment and Plan (1) ROMINA (acute kidney injury): Code(s): N17.9 - Acute kidney failure, unspecified Status: Acute Assessment and Plan: 06/01/24: Resolved Currently back on lisinopril Creatinine 0.9 06/02-06/03 no change (2) Lymphocytic colitis: Code(s): K52.832 - Lymphocytic colitis Status: Acute Assessment and Plan: Multiple episodes of diarrhea and poor PO intake. Patient reports poor PO intake -- Starting budesonide 6mg daily per GI. 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 Still having diarrhea, 2 large episodes this morning. Feels abdominal fullness and not eating a lot. Also afraid if she eats she'll have diarrhea. GI saw today and path from colonoscopy diagnostic for lymphocytic colitis, treating with budesonide. Sodium has been trending down. Potassium improved today. Review of Systems Review of Systems: Abdominal fullness No nausea Exam Narrative: General - Awake and alert. No acute distress Eyes - PERRLA, EOM intact ENT - No thrush, No erythema Neck - No noticeable or palpable swelling Lymph Nodes - No lymphadenopathy Cardiovascular - RRR no m/r/g, no JVD Lungs: Clear to auscultation, No wheezing, use of accessory muscles, no crackles or wheezes. Skin - Skin warm and dry, no wounds or rashes Abdomen - Normal bowel sounds, abdomen soft and nontender Extremities - Mild LE edema, cyanosis or clubbing Musculoskeletal - 5/5 strength, normal range of motion, no swollen or erythematous joints. Neurological ? Alert and oriented x 3, CN 2-12 grossly intact. Psych: Normal mood and affect Objective Data Vital Signs Vital Signs: Vital Signs - 24 hr 06/02/24 20:00 06/02/24 20:00 06/03/24 05:52 Temperature 98.3 F 98.2 F Pulse Rate 100 80 Respiratory Rate 17 16 Blood Pressure 154/67 H 135/58 L Pulse Oximetry 96 96 Oxygen Delivery Room Air Intake/Output Intake/Output: Intake & Output 05/31/24 06/01/24 06/02/24 06/03/24 23:59 23:59 23:59 23:59 Intake Total 3950.0 1720 2230 Output Total 700 Balance 3950.0 1720 1530 Meds/Results Medications: Active Medications Generic Name Dose Route Start Last Admin Trade Name Freq PRN Reason Stop Dose Admin Acetaminophen 1,000 mg 05/26/24 20:25 Acetaminophen 500 Mg Tablet PO Q6H PRN pain or fever Hydrocodone Bitart/Acetaminophen 1 tab 05/26/24 20:30 06/01/24 23:38 Hydrocodone/Acetaminophen (*Crx) 5-325 Mg Tablet PO 1 tab Q6H PRN Administration Pain Rated 4-6 Dicyclomine HCl 20 mg 05/26/24 20:25 06/01/24 11:46 Dicyclomine Hcl 10 Mg Capsule PO 20 mg QID PRN Administration cramping Diphenoxylate HCl/Atropine 1 tablet 05/31/24 15:29 06/03/24 09:10 Diphenoxylate/Atropine (*Crx) 2.5 Mg Tablet PO 1 tablet PRN PRN Administration Diarrhea Guaifenesin/Dextromethorphan 10 ml 06/02/24 23:36 06/03/24 00:02 Guaifenesin/Dextromethorphan 10 Ml Udc PO 10 ml Q4H PRN Administration Cough Hydralazine HCl 10 mg 05/26/24 20:31 Hydralazine Hcl 20 Mg/Ml Vial IV PUSH Q8H PRN Blood Pres
[2024-06-03] MEDS: SODIUM CHLORIDE 0.9% IV 1,000 ML 100 ML IV CONT (16:30)
[2024-06-03] MEDS: BUDESONIDE 3 MG CAP.SR.24H 6 MG PO (16:30)
[2024-06-03] MEDS: MELATONIN 3 MG TABLET PO (21:15)
[2024-06-03 21:17] VITALS: BP 146/68; PULSE 96; RESP 20; TEMP 36.3; O2SAT 94
[2024-06-04] MEDS: SODIUM CHLORIDE 0.9% IV 1,000 ML 100 ML IV CONT ×2 (00:49→10:50)
[2024-06-04] MEDS: guaiFENesin/DEXTROMETHORPHAN 10 ML UDC PO (01:41)
[2024-06-04] MEDS: DIPHENOXYLATE/ATROPINE (*CRX) 2.5 MG TABLET 1 TABLET PO ×2 (04:44→09:04)
[2024-06-04 04:53] VITALS: BP 150/68; PULSE 100; RESP 18; TEMP 36.6; O2SAT 96
[2024-06-04] MEDS: SIMETHICONE 125 MG CHEW TAB PO (05:00)
[2024-06-04] MEDS: LEVOTHYROXINE SODIUM 75 MCG TABLET PO (05:00)
[2024-06-04] MEDS: ONDANSETRON INJ 4 MG/2 ML VIAL IV PUSH (05:00)
[2024-06-04 07:02] LABS: Basophils Percent Auto 0.5 % (0.2-1.2); Eosinophils Absolute Auto 0.2 K/mm3 (0-0.3); Eosinophils Percent Auto 2.5 % (0-4.4); Hematocrit 32.2 % (37.0-47.0); Hemoglobin 10.3 g/dL (12.0-15.0); Immature Granulocyte Absolute 0.04 K/mm3 (0.00-0.031); Immature Granulocyte Percent A 0.5 % (0-0.5); Lymphocytes Absolute Auto 1.21 K/mm3 (0.9-3.2); Lymphocytes Percent Auto 14.5 % (18.3-44.2); Mean Corpuscular Hemoglobin 30.1 pg (26-34); Mean Corpuscular Volume 94.2 fl (80-100); Mean Platelet Volume 11.6 fl (7.4-10.4); Monocytes Absolute Auto 0.8 K/mm3 (0.1-0.6); Monocytes Percent Auto 9.6 % (2.6-8.5); Neutrophils Percent Auto 72.4 % (45.5-73.1); Platelet Count Result 207 k/mm3 (150-375); Red Blood Count 3.42 M/mm3 (4.2-5.4); Red Cell Distribution Width 13.4 % (11.5-14.5); White Blood Count 8.3 K/mm3 (4.5-10.0)
[2024-06-04 07:27] LABS: Alanine Aminotransferase 14 U/L (6-35); Albumin Level 3.1 g/dL (3.5-5.1); Alkaline Phosphatase 55 U/L (38-126); Anion Gap 8 mmol/L (4-12); Aspartate Amino Transferase 22 U/L (14-36); Bilirubin,Total 0.5 mg/dL (0.2-1.3); Blood Urea Nitrogen 6 mg/dL (7-17); Carbon Dioxide 25 mmol/L (22-30); Chloride 103 mmol/L (98-107); Estimated CRCL calculation 41 ml/min; Estimated Glomerular Filt Rate > 60; Glucose 95 mg/dL (65-110); Potassium 3.9 mmol/L (3.4-5.0); Sodium 136 mmol/L (137-145)
[2024-06-04] MEDS: lisinopriL 10 MG TABLET PO (08:59)
[2024-06-04] MEDS: MAGNESIUM OXIDE 400 MG TABLET PO (08:59)
[2024-06-04] MEDS: BUDESONIDE 3 MG CAP.SR.24H 6 MG PO (10:48)
--- NOTE | 2024-06-04 12:56 | PM.DS ---
DS: Admitting Diagnosis Discharge Date 06/04/24 Admitting Diagnosis lymphocytic colitis Romina DS: Discharge Diagnosis Discharge Diagnosis (1) Lymphocytic colitis: Code(s): K52.832 - Lymphocytic colitis Status: Acute (2) Diarrhea: Code(s): R19.7 - Diarrhea, unspecified Status: Acute (3) ROMINA (acute kidney injury): Code(s): N17.9 - Acute kidney failure, unspecified Status: Acute DS: Summary Hospital Course Reason for hospitalization: ROMINA Diarrhea Hospital Course: 83 y/o F presents here with diarrhea with PMH of chronic back pain, depression, GERD, HTN, hypothyroidism, IBS, osteoporosis, and rheumatoid arthritis.Initial VS at presentation: 98.4? F, HR 114, RR 22, 143/62, and 98% on RA. ED workup showed: No leukocytosis, no anemia, creatinine 1.9 and GFR 25 (previously 1.4 and GFR 36), lactic 1.5, normal LFTs and lipase, and UA showed trace ketones, trace leuks, and 3-[address] of the abdomen pelvis done on 05/24 showed colitis, small sliding hiatal hernia, and small pericardial effusion. GI was consulted. CT scan showed colitis, stool sample no findings, C diff negative, lactic and liver enzymes normal, creat up to 1.9. Still with diarrhea, last colonoscopy about 5 years ago. underwent sigmoidoscopy and upper endoscopy. upper endoscopy was unremarkable. Colonoscopy showed normal-appearing mucosa, Pathology report was positive for lymphocytic colitis. was started on budesonide. discharged home in stable condition with advice to follow-up with gastroenterology in 2 weeks. Status at Discharge Functional status at discharge: independent ambulation Overall status at discharge: patient is progressing back to baseline Time Spent with Patient Time attestation: Total time spent providing and/or coordinating discharge services: Time spent: Greater than 30 minutes Exam Narrative: General - Awake and alert. No acute distress Eyes - PERRLA, EOM intact ENT - No thrush, No erythema Neck - No noticeable or palpable swelling Lymph Nodes - No lymphadenopathy Cardiovascular - RRR no m/r/g, no JVD Lungs: Clear to auscultation, No wheezing, use of accessory muscles, no crackles or wheezes. Skin - Skin warm and dry, no wounds or rashes Abdomen - Normal bowel sounds, abdomen soft and nontender Extremities - Mild LE edema, cyanosis or clubbing Musculoskeletal - 5/5 strength, normal range of motion, no swollen or erythematous joints. Neurological ? Alert and oriented x 3, CN 2-12 grossly intact. Psych: Normal mood and affect DS: Data Data Completed and Pending Completed studies during hospitalization: Pending at discharge 05/30/24 15:49 Surgical [PTH] Routine Labs on day of discharge: Labs from last 24 hours 06/04/24 06:19 WBC 8.3 RBC 3.42 L Hgb 10.3 L Hct 32.2 L MCV 94.2 MCH 30.1 MCHC 32.0 RDW 13.4 Plt Count 207 MPV 11.6 H Immature Gran % (Auto) 0.5 Neut % (Auto) 72.4 Lymph % (Auto) 14.5 L [place] % (Auto) 9.6 H Eos % (Auto) 2.5 Baso % (Auto) 0.5 Lymph # (Auto) 1.21 [place] # (Auto) 0.8 H Eos # (Auto) 0.2 Baso # (Auto) 0.0 Abs Immat Gran (auto) 0.04 H Absolute Neuts (auto) 6.0 Absolute Nucleated RBC 0.000 Nucleated RBC % 0.0 Sodium 136 L Potassium 3.9 Chloride 103 Carbon Dioxide 25 Anion Gap 8 BUN 6 L Creatinine 0.80 Estim Creat Clear Calc 41 Estimated GFR > 60 Glucose 95 Calcium 8.0 L Total Bilirubin 0.5 AST 22 ALT 14 Alkaline Phosphatase 55 Total Protein 6.0 L Albumin 3.1 L Discharge Plan Discharge Attending physician on discharge: Yelena Cummins Consulting providers: Mathew Orona; Mikel Miguel; Genie Jacobs; Melody Gill Discharging Clinician: Yelena Cummins Anticipated Discharge Date/Time: 06/04/24 18:00 Patient Disposition: Home, Self-Care Activity: as tolerated Diet: bland and low fat Patient Instructions: Antibiotic Form, Low Fiber Diet (DC) [place]
--- NOTE | 2024-06-04 13:46 | WPDGIPROGNO ---
Progress Note: A&P Assessment and Plan (1) Lymphocytic colitis: Code(s): K52.832 - Lymphocytic colitis Status: Acute Assessment and Plan: reviewed path report of colonoscopy and diagnostic with lymphocytic colitis- this can explain diarrhea and this was shared with patient started on budesonide 6 mg daily- this should improve her diarrhea ok to discharge home and follow-up office lomotil as needed only if diarrhea egd normal- no h pylori, no celiac (2) Nausea: Code(s): R11.0 - Nausea Status: Acute Assessment and Plan: egd no major findings (3) Diarrhea: Code(s): R19.7 - Diarrhea, unspecified Status: Acute Assessment and Plan: probably from lymphocytic colitis Subjective Date/time seen: 06/04/24 13:46 Interval history: less diarrhea Review of Systems Review of Systems: All systems reviewed & are unremarkable except as noted in HPI and below Exam Const: General: uncomfortable HENMT: Face/Nose/Sinus: Normal nares present Eyes: General: appearance normal, both eyes and all related structures Sclera: sclerae normal Neck: Neck: supple Resp: Effort & Inspection: normal respiratory effort Auscultation: clear to auscultation bilaterally Cardio: Rate: regular rate Rhythm: regular rhythm GI: GI Palp: Yes Soft to palpation and No Guarding due to palpation present (GI) Auscultation: normal bowel sounds Skin: General skin exam: normal color Neuro: Cranial nerves: Yes Equal, round and reactive pupils present Speech: normal speech Motor exam (neuro): 5/5 motor strength present throughout Other: A/Ox4 Extrem: General: normal to inspection Psych: Affect: Anxious affect present Other: good insight and judgement, pleasant. Objective Data Vital Signs Vital Signs: Vital Signs - 24 hr 06/03/24 14:00 06/03/24 21:17 06/03/24 20:00 Temperature 97.8 F 97.3 F L Pulse Rate 83 96 Respiratory Rate 18 20 Blood Pressure 155/64 H 146/68 H Pulse Oximetry 96 94 Oxygen Delivery Room Air 06/04/24 04:53 06/04/24 09:00 Temperature 98 F Pulse Rate 100 Respiratory Rate 18 Blood Pressure 150/68 H Pulse Oximetry 96 Oxygen Delivery Room Air Intake/Output Intake/Output: Intake & Output 06/01/24 06/02/24 06/03/24 06/04/24 23:59 23:59 23:59 23:59 Intake Total 1720 2230 250 2081.7 Output Total 700 Balance 1720 0414 068 1452.7 Meds/Results Medications: Active Medications Generic Name Dose Route Start Last Admin Trade Name Freq PRN Reason Stop Dose Admin Acetaminophen 1,000 mg 05/26/24 20:25 Acetaminophen 500 Mg Tablet PO Q6H PRN pain or fever Hydrocodone Bitart/Acetaminophen 1 tab 05/26/24 20:30 06/01/24 23:38 Hydrocodone/Acetaminophen (*Crx) 5-325 Mg Tablet PO 1 tab Q6H PRN Administration Pain Rated 4-6 Budesonide 6 mg 06/04/24 09:00 06/04/24 10:48 Budesonide 3 Mg Cap.Sr.24h PO 6 mg QAM SHE Administration Dicyclomine HCl 20 mg 05/26/24 20:25 06/01/24 11:46 Dicyclomine Hcl 10 Mg Capsule PO 20 mg QID PRN Administration cramping Diphenoxylate HCl/Atropine 1 tablet 05/31/24 15:29 06/04/24 09:04 Diphenoxylate/Atropine (*Crx) 2.5 Mg Tablet PO 1 tablet PRN PRN Administration Diarrhea Guaifenesin/Dextromethorphan 10 ml 06/02/24 23:36 06/04/24 01:41 Guaifenesin/Dextromethorphan 10 Ml Udc PO 10 ml Q4H PRN Administration Cough Hydralazine HCl 10 mg 05/26/24 20:31 Hydralazine Hcl 20 Mg/Ml Vial IV PUSH Q8H PRN Blood Pressure - High >180/90 Sodium Chloride 1,000 mls @ 100 mls/hr 06/03/24 15:40 06/04/24 10:50 Normal Saline Iv IV CONT 06/04/24 15:00 100 mls/hr .Q10H SHE Administration Levothyroxine Sodium 75 mcg 05/27/24 06:30 06/04/24 05:00 Levothyroxine Sodium 75 Mcg Tablet PO 75 mcg DAILY@0630 SHE Administration Lisinopril 10 mg 06/01/24 09:00 06/04/24 08:59 Lisinopril 10 Mg Table
[2024-06-04 14:00] VITALS: BP 137/62; PULSE 92; RESP 24; TEMP 36.6; O2SAT 96
[2024-06-06 14:58] LABS: Trichrome Ova and Parasites STATUS: FINAL
[2024-06-08 18:29] LABS: Pancreatic Elastase, Stool >500 mcg/g
== END 2024-06-04 16:24 | disposition home or self-care (01) | DRG 392 ==
LOC: ANHED 15:56 → ANH3MED 18:08
PROVIDERS: Internal Medicine Gastroenterology; Nurse Practitioner Acute Care; Nurse Practitioner Adult Health; Nurse Practitioner Family; Student in an Organized Health Care Education/Training Program; Admitting Provider Internal Medicine; Emergency Provider Physician Assistant; PCP Family Medicine; Visit Provider Internal Medicine
PROC: 0DJ08ZZ Inspection of Upper Intestinal Tract, Via Natural or Artificial Opening Endoscopic (ICD-10-PCS; CPT 43235; principal; 2024-05-30 16:30)
PROC: 0DJD8ZZ Inspection of Lower Intestinal Tract, Via Natural or Artificial Opening Endoscopic (ICD-10-PCS; CPT 45330; 2024-05-30 16:30)
DX: K52.832 Lymphocytic colitis (principal); N17.9 Acute kidney failure, unspecified; E87.1 Hypo-osmolality and hyponatremia; K21.9 Gastro-esophageal reflux disease without esophagitis; E03.9 Hypothyroidism, unspecified; M81.0 Age-related osteoporosis without current pathological fracture; E86.0 Dehydration; G89.29 Other chronic pain; M54.9 Dorsalgia, unspecified; I12.9 Hypertensive chronic kidney disease with stage 1 through stage 4 chronic kidney disease, or unspecified chronic kidney disease; N18.30 Chronic kidney disease, stage 3 unspecified; M05.9 Rheumatoid arthritis with rheumatoid factor, unspecified; M19.071 Primary osteoarthritis, right ankle and foot; M21.41 Flat foot [pes planus] (acquired), right foot; Z90.49 Acquired absence of other specified parts of digestive tract; Z90.710 Acquired absence of both cervix and uterus
CPT/HCPCS: 36415; 74176; 80048; 80053; 81001; 82653; 83605; 83690; 83735; 85025; 85027; 85055; 86140; 87040; 87045; 87177; 87209; 87427; 87449; 87493; 88305; 96361; 96365; 96366; 96375; 99285; A9270; G0378; J0696; J1836; J2001; J2270; J2405; J2470; J2704; J3475; J3480; J7030; J7040; J7120

== ENCOUNTER 2024-06-12 14:50 | Outpatient (CLI) | payer MEDICARE, OTHER, SELFPAY ==
[2024-06-12 15:15] LABS: Basophils Absolute Auto 0.1 K/mm3 (0.0-0.1); Basophils Percent Auto 0.5 % (0.2-1.2); Eosinophils Percent Auto 0.2 % (0-4.4); Hematocrit 40.5 % (37.0-47.0); Hemoglobin 12.9 g/dL (12.0-15.0); Immature Granulocyte Absolute 0.09 K/mm3 (0.00-0.031); Immature Granulocyte Percent A 0.7 % (0-0.5); Lymphocytes Absolute Auto 1.07 K/mm3 (0.9-3.2); Lymphocytes Percent Auto 7.8 % (18.3-44.2); Mean Corpuscular HGB Conc 31.9 g/dl (32-36); Mean Corpuscular Hemoglobin 30.2 pg (26-34); Mean Corpuscular Volume 94.8 fl (80-100); Mean Platelet Volume 10.4 fl (7.4-10.4); Monocytes Percent Auto 7.1 % (2.6-8.5); Neutrophils Absolute Auto 11.6 K/mm3 (1.3-6.7); Neutrophils Percent Auto 83.7 % (45.5-73.1); Platelet Count Result 355 k/mm3 (150-375); Red Blood Count 4.27 M/mm3 (4.2-5.4); Red Cell Distribution Width 13.5 % (11.5-14.5); White Blood Count 13.8 K/mm3 (4.5-10.0)
[2024-06-12 15:33] LABS: Alanine Aminotransferase 15 U/L (6-35); Albumin Level 4.4 g/dL (3.5-5.1); Alkaline Phosphatase 69 U/L (38-126); Anion Gap 13 mmol/L (4-12); Aspartate Amino Transferase 27 U/L (14-36); Bilirubin,Total 0.8 mg/dL (0.2-1.3); Blood Urea Nitrogen 17 mg/dL (7-17); Calcium 9.4 mg/dL (8.4-10.2); Carbon Dioxide 20 mmol/L (22-30); Chloride 102 mmol/L (98-107); Estimated Glomerular Filt Rate 60; Glucose 99 mg/dL (65-110); Potassium 4.6 mmol/L (3.4-5.0); Sodium 135 mmol/L (137-145)
== END 2024-06-12 14:51 | disposition home or self-care (01) ==
LOC: ANHLAB 14:54
PROVIDERS: PCP Family Medicine; Visit Provider Family Medicine
DX: I15.2 Hypertension secondary to endocrine disorders (principal); R10.9 Unspecified abdominal pain
CPT/HCPCS: 36415; 80053; 85025

== ENCOUNTER 2024-12-05 12:51 | Outpatient (CLI) | payer MEDICARE, OTHER, SELFPAY ==
--- OUTSIDE RECORDS SUMMARY | 2024-12-05 14:19 | XMS_ITS | Clinical Summary ---
Author Organization [facility] Address [address] [place] [address] Care Team Providers Care Human Resources Vice President Name Role Phone Michael Barber MD Primary Care Provider Allergies Active Allergy Reactions Criticality Noted Date Comments Iodine Hives High 03/21/2023 Iodinated Contrast Media Rash Low 03/21/2023 Medications * This document contains information received from the source organization and may not represent a complete record from that organization. lisinopril (PRINIVIL) 10 MG tablet Take 1 tablet (10 mg total) by mouth daily. Active levothyroxine (SYNTHROID) 88 MCG tablet Take 1 tablet (88 mcg total) by mouth every morning. Active omeprazole (PRILOSEC) 20 MG capsule Take 1 capsule (20 mg total) by mouth daily. Active acetaminophen (TYLENOL) 500 MG tablet Take 1 tablet (500 mg total) by mouth every 6 (six) hours as needed for Pain. Active ibuprofen (MOTRIN) 200 MG tablet Take 1 tablet (200 mg total) by mouth every 6 (six) hours as needed for Pain. Active vitamin C (ASCORBIC ACID) 250 MG tablet Take 2 tablets (500 mg total) by mouth daily. Active melatonin 1 MG tablet Take 1 tablet (1 mg total) by mouth nightly as needed. Take 2 tabs PO HS as needed Active Social History Tobacco Use Types Packs/Day Years Used Date Smoking Tobacco: Never Assessed Comments Unknown Sex and Gender Information Value Date Recorded Sex Assigned at Not on file Legal Sex Female 3:11 PM CDT Gender Identity Not on file Sexual Orientation Not on file Last Filed Vital Signs Vital Sign Reading Time Taken Comments Blood Pressure 122/74 03/29/2023 10:05 AM CDT Pulse 76 03/29/2023 10:05 AM CDT Temperature 36.5 C (97.7 F) 03/29/2023 10:05 AM CDT Respiratory Rate 16 03/29/2023 10:05 AM CDT Oxygen Saturation - - Inhaled Oxygen Concentration - - Weight 67.6 kg (149 lb) 03/29/2023 10:05 AM CDT Height 160 cm (5' 3 ) 03/29/2023 10:05 AM CDT Body Mass Index 26.39 03/29/2023 10:05 AM CDT Plan of Treatment Health Maintenance Due Date Last Done Comments DTaP, Tdap and Td Vaccines ( 1 - Tdap) 1960 Zoster Vaccines (1 of 2) 12/19/1991 Annual Medicare Wellness Visit 2006 Dexa Scan (General) 2006 Pneumococcal Vaccine: 65+ Ye ars (1 of 1 - PCV) 2006 RSV Immunization or 60+ Years (1 - 1-dose 75+ series) 2016 COVID-19 Vaccine (2023-2 5 season) 2024 Influenza Adult (#1) 2024 Meningococcal B Vaccine Aged Out No l onger eligible based on patient's age to complete this topic Meningococcal Vaccine Aged Out No yamel carola eligible based on patient's age to complete this topic RSV Immunizations Under 20 Months Aged Out No longer eligible based on patient's age to complete [place] [id number] [facility] Care Teams Human Resources Vice President Relationship Specialty Start Date End Date Michael Barber MD [address] [place] [address] PCP - General FAMILY PRACTICE 03/21/23
--- OUTSIDE RECORDS SUMMARY | 2024-12-05 14:19 | XMS_ITS | Patient Health Summary ---
Author Organization [facility] Address [address] [place] [address] Care Team Providers Care Unit Coordinator Name Role Phone Michael Barber MD Primary Care Provider [phone] Note from [facility],non-owned Affiliates and Associated Physician Practices is amultiple site organization consisting of ambulatory clinics and hospital sitesin [place], [place], [place] and [place]. This disclosure is being madepursuant to the Care Everywhere program and may not contain all information available regarding this patient. Last updated 18.[facility] Allergies * Contrast-Iodinated Agents For Ct/Other(Unknown) * Erythromycin(Other) * Fenoprofen(Rash) -Medium Criticality * Iodine(Other) * Rosuvastatin(Other) Medications * Be aware that medications may not be up to date on this document. Alwaysverify current medications with the patient. * dicyclomine (Bentyl) 20 MG tablet(Started 06/16/2022) TAKE 1 TABLET BY MOUTH FOUR TIMES DAILY NEEDED FOR CRAMPING * lisinopril (Prinivil; Zestril) 10 MG tablet(Started 11/25/2022) * Synthroid 88 MCG tablet(Started 06/18/2022) Take 1 (one) tablet by mouth once daily * omeprazole (PriLOSEC) 20 MG capsule(Started 06/16/2022) Take 1 (one) capsule by mouth once daily * betamethasone dipropionate 0.05 % lotion(Started 04/13/2023) * ascorbic acid (Vitamin C) 250 MG tablet Take 2 (two) tablets by mouth once daily * ibandronate (Boniva) 150 MG tablet(Started 04/07/2023) * ibuprofen (Motrin) 200 MG tablet Take 1 (one) tablet by mouth every 6 hours as needed * acetaminophen (Tylenol) 500 MG tablet Take 1 (one) tablet by mouth every 6 hours as needed * VITAMIN D PO * calcium carbonate (Tums) 500 MG chew tablet Take 1 (one) tablet by mouth daily with food Social History Tobacco Use Types Packs/Day Years Used Date Smoking Tobacco: Never Assessed PHQ-2 Answer Date Recorded PHQ2 TOTAL SCORE 1 05/09/2023 Sex and Gender Information Value Date Recorded Sex Assigned at Not on file Gender Identity Not on file Sexual Orientation Not on file Last Filed Vital Signs Vital Sign Reading Time Taken Comments Blood Pressure 126/76 05/09/2023 11:07 AM CDT Pulse 85 05/09/2023 11:07 AM CDT Temperature 37.2 C (98.9 F) 05/09/2023 11:07 AM CDT Respiratory Rate - - Oxygen Saturation 98% 05/09/2023 11:07 AM CDT Inhaled Oxygen Concentration - - Weight 69 kg (152 lb 3.2 oz) 05/09/2023 11:07 AM CDT Height 162.6 cm (5' 4 ) 05/09/2023 11:07 AM CDT Body Mass Index 26.13 05/09/2023 11:07 AM CDT Procedures * URINALYSIS W/MICROSCOPIC NO CULTURE(Performed 12/16/2022) Performed for Polyarthralgia * SS-A (SJOGREN'S) 52+60 ANTIBODIES(Performed 12/16/2022) Performed for Polyarthralgia * SCLERODERMA 70 (SCL) ANTIBODY(Performed 12/16/2022) Performed for Polyarthralgia * RNA POLYMERASE III ANTIBODY IGG(Performed 12/16/2022) Performed for Polyarthralgia * CENTROMERE B ANTIBODIES(Performed 12/16/2022) Performed for Polyarthralgia * LDH BLOOD(Performed 12/16/2022) Performed for Polyarthralgia * COMPREHENSIVE METABOLIC PANEL(Performed 12/16/2022) Performed for Polyarthralgia * ERYTHROCYTE SEDIMENTATION RATE(Performed 12/16/2022) Performed for Polyarthralgia * CK BLOOD(Performed 12/16/2022) Performed for Polyarthralgia * C-REACTIVE PROTEIN(Performed 12/16/2022) Performed for Polyarthralgia * CBC W AUTO DIFFERENTIAL(Performed 12/16/2022) Performed for Polyarthralgia * ALDOLASE(Performed 12/16/2022) Performed for Polyarthralgia * MENA/SECURITY SERGEANT (IRMA) ANTIBODY IGG(Performed 12/16/2022) Performed for Polyarthralgia * SS-B (SJOGREN'S) ANTIBODY(Performed 12/16/2022) Performed for Polyarthralgia * MENA (SM) ANTIBODY IRMA(Performed 12/16/2022) Performed for Polyarthralgia * RHEUMATOID FACTOR BLOOD QUANTITATIVE(Performed 12/16/2022) Performed for Polyarthralgia * DNA ANTIBODY DOUBLE STRANDED(Performed 12/16/2022) Performed for Polyarthralgia * CYCLIC CITRUL PEPTIDE ANTIBODY IGG/IGA (CCP)(Performed 12/16/2022) Performed for Polyarthralgia * TYRELL BLOOD SCREEN W/REFLEX TITER(Performed 12/16/2022) Performed for Polyarthralgia * XR WRIST LEFT 3VW OR MORE(Performed 12/16/2022) Performed for Polyarthralgia * XR WRIST RIGHT 3VW OR MORE(Performed 12/16/2022) Performed for Polyarthralgia * XR FOOT RIGHT 3VW OR MORE(Performed 12/16/2022) Performed for Polyarthralgia * XR FOOT LEFT 3VW OR MORE(Performed 12/16/2022) Performed for Polyarthralgia * XR HAND RIGHT 3VW OR MORE(Performed 12/16/2022) Performed for Polyarthralgia * XR HAND LEFT 3VW OR MORE(Performed 12/16/2022) Performed for Polyarthralgia Results * URINALYSIS W/MICROSCOPIC NO CULTURE (12/16/2022 1:03 PM SENIOR CONSULTANT) Color UA Yellow Straw, Yellow 12/16/2022 2:16 PM SENIOR CONSULTANT [facility] Clarity UA Clear Clear 12/16/2022 2:16 PM SENIOR CONSULTANT [facility] Specific [place] UA 1.015 1.005 - 1.030 12/16/2022 2:16 PM SENIOR CONSULTANT [facility] pH UA 5.0 5.0 - 8.0 pH 12/16/2022 2:16 PM SENIOR CONSULTANT [facility] Protein UA Negative Negative 12/16/2022 2:16 PM [facility] Glucose UA Negative Negative 12/16/2022 2:16 PM [facility] Ketone UA Negative Negative 12/16/2022 2:16 PM [facility] Bilirubin UA Negative Negative 12/16/2022 2:16 PM [facility] Blood UA Negative Negative 12/16/2022 2:16 PM [facility] Nitrite UA Negative Negative 12/16/2022 2:16 PM [facility] Leukocyte Esterase Negative Negative 12/16/2022 2:16 PM [facility] Urobilinogen UA Negative Negative mg/dL 12/16/2022 2:16 PM [facility] RBC UA 0-2 None Seen, 0-2, 3-5 /HPF 12/16/2022 2:16 PM [facility] WBC UA 0-5 None Seen, 0-5 /HPF 12/16/2022 2:16 PM [facility] Squamous Epithelial Cells UA 0-2 None Seen, 0-2, 3-5 /HPF 12/16/2022 2:16 PM [facility] Hyaline Casts UA 0-2 None Seen, 0-2 /LPF 12/16/2022 2:16 PM [facility] Urine URINE SPECIMEN OBTAINED BY CLEAN CATCH PROCEDURE / Unknown Collection / Unknown 12/16/2022 1:03 PM SENIOR CONSULTANT 12/16/2022 1:29 PM SENIOR CONSULTANT Narrative [facility] - 12/16/2022 2:16 PM SENIOR CONSULTANT Bassam Pappas MD LAB - URINALYSIS ORD ERABLES Performing Organization Address City/State/[facility] Co de Phone Number [facility] [address] [place] [phone], [facility] [phone] * SS-A (SJOGREN'S) 52+60 ANTIBODIES (12/16/2022 12:52 PM SENIOR CONSULTANT) SS-A 52 Antibody 0 0 - 40 AU/mL 12/17/2022 11:09 PM SENIOR CONSULTANT [employer] [facility] ([facility]) Comment: INTERPRETIVE INFORMATION: SSA-52 (Ro52) (IRMA) Antibody, IgG 29 AU/mL or Less ............. Negative 30 - 40 AU/mL ................ Equivocal 41 AU/mL or Greater .......... Positive SSA-52 (Ro52) and/or SSA-60 (Ro60) antibodies are associated with a diagnosis of Sjogren syndrome, systemic lupus erythematosus (SLE), and systemic sclerosis. SSA-52 antibody overlaps significantly with the major SSc-related antibodies. SSA-52 (Ro52) antibody occurs frequently in patients with inflammatory myopathies, often in the presence of interstitial lung disease. SS-A 60 Antibody 0 0 - 40 AU/mL 12/17/2022 11:09 PM SENIOR CONSULTANT [address] [facility] [employer] ([facility]) Comment: REFERENCE INTERVAL: SSA-60 (Ro60) (IRMA) Antibody, IgG 29 AU/mL or Less ............. Negative 30 - 40 AU/mL ................ Equivocal 41 AU/mL or Greater .......... Positive Performed By: [facility] [address] [place] [address] Special Machine Stitcher: Tom Diggs MD, PhD Blood BLOOD SPECIMEN / Unknown Lab Venipuncture / Unknown 12/16/2022 12:52 PM SENIOR CONSULTANT 12/16/2022 1:30 PM SENIOR CONSULTANT Bassam Pappas MD LAB - CHEMISTRY DAHIANA [facility]AL[facility] Organization Address City/State/ZIP Co de Phone Number [address] Res[facility] [employer] [facility]) [address] * MENA/SECURITY SERGEANT (IRMA) ANTIBODY IGG (12/16/2022 12:50 PM SENIOR CONSULTANT) Mena/SECURITY SERGEANT (IRMA) Antibody IgG 1 0 - 19 Units 12/17/2022 11:03 PM SENIOR CONSULTANT [address] [facility] [employer] [facility] [employer] ([facility]) Comment: INTERPRETIVE INFORMATION: Mena/SECURITY SERGEANT (IRMA) Antibody, IgG 19 Units or Less ............. Negative 20 to 39 Units ............... Weak Positive 40 to 80 Units ............... Moderate Positive 81 Units or greater .......... Strong Positive Mena/SECURITY SERGEANT antibodies are frequently seen in patients with mixed connective tissue disease (MCTD) and are also associated with other systemic autoimmune rheumatic diseases (SARDs) such as systemic lupus erythematosus (SLE), systemic sclerosis, and myositis. Antibodies targeting the Mena/SECURITY SERGEANT antigenic complex also recognize Mena antigens, therefore, the Mena antibody response must be considered when interpreting these results. Performed By: [employer] [address] [place] [address] Special Machine Stitcher: Tom Diggs MD, PhD Blood BLOOD SPECIMEN / Unknown Lab Venipuncture / Unknown 12/16/2022 12:50 PM SENIOR CONSULTANT 12/16/2022 1:30 PM SENIOR CONSULTANT Bassam Pappas MD LAB - CHEMISTRY ORDKaren GALARZA Performing Organization Address [facility] Co de Phone Number [facility] ([facility]) [address] [place] [address] * CENTROMERE B ANTIBODIES (12/16/2022 12:50 PM SENIOR CONSULTANT) Pathologist [facility] Centromere B Antibody <0.2 0.0 - 0.9 AI 12/17/2022 3:09 PM SENIOR CONSULTANT [facility] ([facility]) Blood BLOOD SPECIMEN / Unknown Lab Venipuncture / Unknown 12/16/2022 12:50 PM SENIOR CONSULTANT 12/16/2022 1:30 PM SENIOR CONSULTANT Narrative [facility] ([facility]) - 12/17/2022 3:09 PM SENIOR CONSULTANT Performed at: - [facility] [address] [place], [place] [id number] Wet Room Worker: Yfn Garza PhD, Phone: [phone] Bassam Pappas MD LAB - SEROLOGY ORDER MIKHAIL Performing Organization Address City/[facility]/ZIP Co de Phone Number [facility] ([facility]) [address] [place] [address] * CYCLIC CITRUL PEPTIDE ANTIBODY IGG/IGA (CCP) (12/16/2022 12:50 PM SENIOR CONSULTANT) CCP Antibodies IgG/IgA 3 0 - 19 units 12/17/2022 1:09 PM SENIOR CONSULTANT [facility] ([facility]) Comment: Negative <20 Weak positive 20 - 39 Moderate positive 40 - 59 Strong positive >59 Blood BLOOD SPECIMEN / Unknown Lab Venipuncture / Unknown 12/16/2022 12:50 PM SENIOR CONSULTANT 12/16/2022 1:29 PM SENIOR CONSULTANT Narrative [facility] ([facility]) - 12/17/2022 1:09 PM SENIOR CONSULTANT Performed at: - [facility] [address] [place], [place] [id number] Wet Room Worker: Yfn Garza PhD, Phone: [phone] Bassam Pappas MD LAB - SEROLOGY ORDER MIKHAIL [facility] ([facility]) [address] [place] [address], [facility] * (ABNORMAL) RNA POLYMERASE III ANTIBODY IGG (12/16/2022 12:50 PM SENIOR CONSULTANT) RNA Polymerase 3 Antibody IgG 42(H) 0 - 19 Units 2022 10:44 PM SENIOR CONSULTANT [employer] ([facility]) Comment: INTERPRETIVE INFORMATION: RNA Polymerase III Antibody, IgG 19 Units or less ......Negative 20 - 39 Units .........Weak Positive 40 - 80 Units .........Moderate Positive 81 Units or greater ...Strong Positive The presence of RNA polymerase III IgG antibody, when considered in conjunction with other laboratory and clinical findings, is an aid in the diagnosis of systemic sclerosis (SSc) with increased incidence of skin involvement and renal crisis with the diffuse cutaneous form of SSc. RNA polymerase III IgG antibody occur in about 11-23 percent of SSc patients, and typically in the absence of anti-centromere and anti-Scl-70 antibodies. A negative result indicates no detectable IgG antibodies to the dominant antigen of RNA polymerase III and does not rule out the possibility of SSc. False-positive results may also occur due to non-specific binding of immune complexes. Strong clinical correlation is recommended. If clinical suspicion remains, consider additional testing for other antibodies associated with SSc, including centromere, Scl-70, U3-SECURITY SERGEANT, PM/Scl, or Th/To. Performed By: [facility] [address] [place] [address] Special Machine Stitcher: Tom Diggs MD, PhD Blood BLOOD SPECIMEN / Unknown Lab Venipuncture / Unknown 12/16/2022 12:50 PM SENIOR CONSULTANT 12/16/2022 1:30 PM SENIOR CONSULTANT Bassam Pappas MD LAB - SEROLOGY ORDER MIKHAIL [facility]) [address] [place] [address] * MENA (SM) ANTIBODY IRMA (12/16/2022 12:50 PM SENIOR CONSULTANT) Pathologist [facility] Mena (IRMA) Antibody 0 0 - 40 AU/mL 12/17/2022 11:09 PM SENIOR CONSULTANT [facility] ([facility]) Comment: INTERPRETIVE INFORMATION: Mena (IRMA) Antibody, IgG 29 AU/mL or Less ............. Negative 30 - 40 AU/mL ................ Equivocal 41 AU/mL or Greater .......... Positive Mena antibody is highly specific (greater than 90 percent) for systemic lupus erythematosus (SLE) but only occurs in 30-35 percent of SLE cases. The presence of antibodies to Mena has variable associations with SLE clinical manifestations. Performed By: [facility] [employer] [address] [place] [address] Special Machine Stitcher: Tom Diggs MD, PhD Blood BLOOD SPECIMEN / Unknown Lab Venipuncture / Unknown 12/16/2022 12:50 PM SENIOR CONSULTANT 12/16/2022 1:30 PM SENIOR CONSULTANT Bassam Pappas MD LAB - CHEMISTRY ORDE RABNILSON [facility]) [address] [place] [address] * RHEUMATOID FACTOR BLOOD QUANTITATIVE (12/16/2022 12:50 PM SENIOR CONSULTANT) Pathologist [facility] Rheumatoid Factor <15 <30 IU/mL 12/16/2022 2:40 PM SENIOR CONSULTANT [facility] Rheumatoid Factor Screen Negative Negative 12/16/2022 2:40 PM SENIOR CONSULTANT [facility] Blood BLOOD SPECIMEN / Unknown Lab Venipuncture / Unknown 12/16/2022 12:50 PM SENIOR CONSULTANT 12/16/2022 1:30 PM SENIOR CONSULTANT Bassam Pappas MD LAB - CHEMISTRY DAHIANA GALARZA [address] [address], [facility] [phone] * C-REACTIVE PROTEIN (12/16/2022 12:50 PM SENIOR CONSULTANT) Pathologist [facility] C-Reactive Protein <0.5 <=0.5 mg/dL 12/16/2022 2:40 PM SENIOR CONSULTANT [facility] Blood BLOOD SPECIMEN / Unknown Lab Venipuncture / Unknown 12/16/2022 12:50 PM SENIOR CONSULTANT 12/16/2022 1:30 PM SENIOR CONSULTANT Bassam Pappas MD LAB - CHEMISTRY DAHIANA GALARZA Performing Organization Address [facility]/ZIP Co de Phone Number [address] [address], [place] [phone] * TYRELL BLOOD SCREEN W/REFLEX TITER (12/16/2022 12:50 PM SENIOR CONSULTANT) Pathologist [facility] TYRELL IgG None Detected None Detected 12/17/2022 11:07 PM SENIOR CONSULTANT [facility] [employer] ([facility]) Comment: If suspicion of connective tissue disease is strong and TYRELL EIA is negative, consider testing for TYRELL by IFA ([id number]). INTERPRETIVE INFORMATION: Anti-Nuclear Antibodies (TYRELL), IgG by MISAEL Antinuclear Antibodies (TYRELL), IgG by MISAEL: TYRELL specimens are screened using enzyme-linked immunosorbent assay (MISAEL) methodology. All MISAEL results reported as Detected are further tested by indirect fluorescent assay (IFA) using HEp-2 substrate with an IgG-specific conjugate. The TYRELL MISAEL screen is designed to detect antibodies against dsDNA, histones, SS-A (Ro), SS-B (La), Mena, Mena/SECURITY SERGEANT, Scl-70, Edwige-1, centromeric proteins, other antigens extracted from the HEp-2 cell nucleus. TYRELL MISAEL assays have been reported to have lower sensitivities than TYRELL IFA for systemic autoimmune rheumatic diseases (SARD). Negative results do not necessarily rule out SARD. Performed By: [facility] [address] [place] [address] Special Machine Stitcher: Tom Diggs MD, PhD Blood BLOOD SPECIMEN / Unknown Lab Venipuncture / Unknown 12/16/2022 12:50 PM SENIOR CONSULTANT 12/16/2022 1:29 PM SENIOR CONSULTANT Bassam Pappas MD LAB - CHEMISTRY DAHIANA GALARZA Performing Organization Address [facility] Co de Phone Number [facility]) [address] [place] [address] * SS-B (SJOGREN'S) ANTIBODY (12/16/2022 12:50 PM SENIOR CONSULTANT) SS-B Antibody 0 0 - 40 AU/mL 2022 6:28 AM SENIOR CONSULTANT [facility] ([facility]) Comment: INTERPRETIVE INFORMATION: SSB (La) (IRMA) Ab, IgG 29 AU/mL or Less ............. Negative 30 - 40 AU/mL ................ Equivocal 41 AU/mL or Greater .......... Positive SSB (La) antibody is seen in 50-60% of Sjogren syndrome cases and is specific if it is the only IRMA antibody present. 15-25% of patients with systemic lupus erythematosus (SLE) and 5-10% of patients with progressive systemic sclerosis (PSS) also have this antibody. Performed By: [facility] [address] [place] [address] Special Machine Stitcher: Tom Diggs MD, PhD Blood BLOOD SPECIMEN / Unknown Lab Venipuncture / Unknown 12/16/2022 12:50 PM SENIOR CONSULTANT 12/16/2022 1:30 PM SENIOR CONSULTANT Bassam Pappas MD LAB - CHEMISTRY DAHIANA GALARZA Performing Organization Address [facility]/ZIP Co de Phone Number [facility] [employer] [facility]) [address] [place] [address] * SCLERODERMA 70 (SCL) ANTIBODY (12/16/2022 12:50 PM SENIOR CONSULTANT) [facility] SCL-70 Antibody 0 0 - 40 AU/mL 12/17/2022 11:09 PM SENIOR CONSULTANT [facility] [employer] ([facility]) Comment: INTERPRETIVE INFORMATION: Scleroderma (Scl-70) (IRMA) Ab, IgG 29 AU/mL or Less ............. Negative 30 - 40 AU/mL ................ Equivocal 41 AU/mL or Greater .......... Positive The presence of Scl-70 antibodies (also referred to as topoisomerase I, cory-I or ROSLYN) is considered diagnostic for systemic sclerosis (SSc). Scl-70 antibodies alone are detected in about 20 percent of SSc patients and are associated with the diffuse form of the disease, which may include specific organ involvement and poor prognosis. Scl-70 antibodies have also been reported in a varying percentage of patients with systemic lupus erythematosus (SLE). Scl-70 (cory-1) is a DNA binding protein and anti-DNA/DNA complexes in the sera of SLE patients may bind to cory-I, leading to a false-positive result. The presence of Scl-70 antibody in sera may also be due to contamination of recombinant Scl-70 with DNA derived from cellular material used in immunoassays. Strong clinical correlation is recommended if both Scl-70 and dsDNA antibodies are detected. Negative results do not necessarily rule out the presence of SSc. If clinical suspicion remains, consider further testing for centromere, RNA polymerase III and U3-SECURITY SERGEANT, PM/Scl, or Th/To antibodies. Performed By: [facility] [address] [place] [address] Special Machine Stitcher: Tom Diggs MD, PhD Blood BLOOD SPECIMEN / Unknown Lab Venipuncture / Unknown 12/16/2022 12:50 PM SENIOR CONSULTANT 12/16/2022 1:30 PM SENIOR CONSULTANT Bassam Pappas MD LAB - CHEMISTRY DAHIANA GALARZA [facility] [employer] [facility]) [address] * DNA ANTIBODY DOUBLE STRANDED (12/16/2022 12:50 PM SENIOR CONSULTANT) [facility] dsDNA Antibody 13 0 - 24 IU 12/17/2022 11:41 PM SENIOR CONSULTANT [address] Residence [employer] [facility] [employer] ([facility]) Comment: INTERPRETIVE INFORMATION: Double-Stranded DNA (dsDNA) Ab IgG MISAEL 24 IU or less........Negative 25-30 IU.............Borderline Positive 30-60 IU.............Low Positive 60-200 IU............Positive 201 IU or greater....Strong Positive Positivity for anti-double stranded DNA (anti-dsDNA) IgG antibody is a diagnostic criterion of systemic lupus erythematosus (SLE). Specimens are initially screened by enzyme-linked immunosorbent assay (MISAEL). If ordered as reflex ([id number]), positive MISAEL results (>24 IU) will be reflexed to a highly specific IFA titer (Crithidia luciliae indirect fluorescent test [RAND]) for confirmation. Some patients with early or inactive SLE may be positive for anti-dsDNA IgG by MISAEL but negative by RAND. If the patient is negative by RAND but positive by MISAEL and clinical suspicion remains, consider antinuclear antibody (TYRELL) testing by IFA. Additional information and recommendations for testing may be found at [email or web address]. Performed By: [facility] [address] [place] [address] Special Machine Stitcher: Tom Diggs MD, PhD Blood BLOOD SPECIMEN / Unknown Lab Venipuncture / Unknown 12/16/2022 12:50 PM SENIOR CONSULTANT 12/16/2022 1:30 PM SENIOR CONSULTANT Bassam Pappas MD LAB - HEMATOLOGY ORD ERABLES [address] Residence [employer] [facility]) [address] [place] [address], [facility] * ALDOLASE (12/16/2022 12:50 PM SENIOR CONSULTANT) [facility] Aldolase 4.3 1.2 - 7.6 U/L 2022 2:56 AM SENIOR CONSULTANT [address] Residence [employer] ([facility]) Comment: This specimen is Hemolyzed. This may cause the results to be falsely increased. REFERENCE INTERVAL: Aldolase Access complete set of age- and/or gender-specific reference intervals for this test in the [facility] Laboratory Test Directory ([employer]). Performed By: [facility] [employer] [address] [place] [address] Special Machine Stitcher: Tom Diggs MD, PhD Blood BLOOD SPECIMEN / Unknown Lab Venipuncture / Unknown 12/16/2022 12:50 PM SENIOR CONSULTANT 12/16/2022 1:30 PM SENIOR CONSULTANT Bassam Pappas MD LAB - CHEMISTRY ORDKaren GALARZA [facility] ([facility]) [address] [place], [place] [address] * (ABNORMAL) ERYTHROCYTE SEDIMENTATION RATE (12/16/2022 12:50 PM SENIOR CONSULTANT) Pathologist [facility] Erythrocyte Sedimentation Rate Westergren 38(H) 0 - 30 MM/HR 12/16/2022 2:22 PM SENIOR CONSULTANT [facility] Blood BLOOD SPECIMEN / Unknown Lab Venipuncture / Unknown 12/16/2022 12:50 PM SENIOR CONSULTANT 12/16/2022 2:03 PM SENIOR CONSULTANT Bassam Pappas MD LAB - HEMATOLOGY ORD MIGUE [address] [address], [facility] [phone] * CBC WITH DIFFERENTIAL (12/16/2022 12:50 PM SENIOR CONSULTANT) WBC 8.2 3.5 - 10.5 10 3/uL 12/16/2022 2:13 PM SENIOR CONSULTANT [facility] RBC 4.19 3.80 - 5.20 10 6/uL 12/16/2022 2:13 PM [facility] Hemoglobin 12.1 12.0 - 15.6 g/dL 12/16/2022 2:13 PM [facility] Hematocrit 38.2 35.0 - 45.0 % 12/16/2022 2:13 PM [facility] MCV 91.2 80.7 - 98.3 fL 12/16/2022 2:13 PM [facility] MCH 28.9 26.7 - 34.0 pg 12/16/2022 2:13 PM [facility] MCHC 31.7 30.8 - 35.9 g/dL 12/16/2022 2:13 PM [facility] RDW-SD 44.7 36.0 - 50.0 fL 12/16/2022 2:13 PM [facility] RDW-CV 13.4 11.2 - 14.8 % 12/16/2022 2:13 PM [facility] Platelet Count 237 150 - 400 10 3/uL 12/16/2022 2:13 PM [facility] MPV 11.3 9.4 - 12.9 fL 12/16/2022 2:13 PM [facility] nRBC Absolute 0.00 0 10 3/uL 12/16/2022 2:13 PM [facility] nRBC Auto 0.0 0 /100 WBC 12/16/2022 2:13 PM [facility] Neutrophils % 61.8 35.0 - 70.0 % 12/16/2022 2:13 PM [facility] Lymphocytes % 27.7 20.0 - 43.0 % 12/16/2022 2:13 PM [facility] Monocytes % 8.4 5.0 - 13.0 % 12/16/2022 2:13 PM [facility] Eosinophils % 1.0 0.0 - 6.0 % 12/16/2022 2:13 PM [facility] Basophil % 0.6 0.0 - 2.0 % 12/16/2022 2:13 PM [facility] Neutrophils Absolute 5.10 1.60 - 7.00 10 3/uL 12/16/2022 2:13 PM [facility] Lymphocyte Absolute 2.28 1.10 - 3.90 10 3/uL 12/16/2022 2:13 PM [facility] Monocytes Absolute 0.69 0.26 - 1.07 10 3/uL 12/16/2022 2:13 PM [facility] Eosinophils Absolute 0.08 0.00 - 0.47 10 3/uL 12/16/2022 2:13 PM [facility] Basophils Absolute 0.05 0.00 - 0.08 10 3/uL 12/16/2022 2:13 PM [facility] Immature Granulocytes % 0.5 0.0 - 1.0 % 12/16/2022 2:13 PM [facility] Immature Granulocytes Absolute 0.04 12/16/2022 2:13 PM [facility] Blood BLOOD SPECIMEN / Unknown Lab Venipuncture / Unknown 12/16/2022 12:50 PM [facility]IOR CONSULTANT 12/16/2022 2:03 PM SENIOR CONSULTANT Bassam Pappas MD LAB - HEMATOLOGY ORD ERABLES [facility] [address] [place] [address], [facility] [phone] * (ABNORMAL) COMPREHENSIVE METABOLIC PANEL (12/16/2022 12:50 PM SENIOR CONSULTANT) BUN 27(H) 7 - 26 mg/dL 12/16/2022 2:31 PM [facility] Creatinine 1.00(H) 0.56 - 0.96 mg/dL 12/16/2022 2:31 PM [facility] Sodium 144 136 - 145 mmol/L 12/16/2022 2:31 PM [facility] Potassium 4.6(H) 3.5 - 4.5 mmol/L 12/16/2022 2:31 PM [facility] Chloride 109(H) 98 - 107 mmol/L 12/16/2022 2:31 PM [facility] CO2 21(L) 22 - 29 mmol/L 12/16/2022 2:31 PM [facility] Glucose 86 70 - 115 mg/dL 12/16/2022 2:31 PM [facility] Calcium 9.8 8.4 - 10.2 mg/dL 12/16/2022 2:31 PM [facility] Protein Total 7.2 6.0 - 8.3 g/dL 12/16/2022 2:31 PM [facility] Albumin 3.8 3.4 - 5.0 g/dL 12/16/2022 2:31 PM [facility] Bilirubin Total 0.6 0.2 - 1.2 mg/dL 12/16/2022 2:31 PM [facility] Alkaline Phosphatase 77 40 - 150 U/L 12/16/2022 2:31 PM [facility] ALT 12 5 - 55 U/L 12/16/2022 2:31 PM [facility] AST 18 5 - 34 U/L 12/16/2022 2:31 PM [facility] Anion Gap 19(H) 8 - 18 12/16/2022 2:31 PM [facility] BUN/Creatinine Ratio 27(H) 7 - 23 12/16/2022 2:31 PM [facility] Osmolality Calculated 302(H) 270 - 300 mOsm/kg 12/16/2022 2:31 PM [facility] Albumin/Globulin Ratio 1.1 1.1 - 2.3 12/16/2022 2:31 PM [facility] eGFR by CKD-EPI 57(L) >=90 mL/min/1.7 3 m2 12/16/2022 2:31 PM [facility] Blood BLOOD SPECIMEN / Unknown Lab Venipuncture / Unknown 12/16/2022 12:50 PM SENIOR CONSULTANT 12/16/2022 2:03 PM SENIOR CONSULTANT Bassam Pappas MD LAB - CHEMISTRY [facility] [address] [address], [facility] [phone] * LDH BLOOD (12/16/2022 12:50 PM SENIOR CONSULTANT) Pathologist [facility] LDH Total 183 125 - 243 Units/L 12/16/2022 2:31 PM [facility] Blood BLOOD SPECIMEN / Unknown Lab Venipuncture / Unknown 12/16/2022 12:50 PM SENIOR CONSULTANT 12/16/2022 2:03 PM SENIOR CONSULTANT Bassam Pappas MD LAB - CHEMISTRY [facility]ALAR[facility] [address] [address], [place] [phone] * CK BLOOD (12/16/2022 12:50 PM SENIOR CONSULTANT) Pathologist [facility] CK Total 33 30 - 200 U/L 12/16/2022 2:31 PM SENIOR CONSULTANT [facility] Blood BLOOD SPECIMEN / Unknown Lab Venipuncture / Unknown 12/16/2022 12:50 PM SENIOR CONSULTANT 12/16/2022 2:03 PM SENIOR CONSULTANT Bassam Pappas MD LAB - CHEMISTRY [facility] Organization Address City/State/ZIP Co de Phone Number [facility] [address] [place] [address], [facility] [phone] * XR FOOT RIGHT 3VW OR MORE (12/16/2022 11:52 AM SENIOR CONSULTANT) Anatomical Region Laterality Modality Ankle / Foot Radiographic Jami ging 12/16/2022 1:43 PM SENIOR CONSULTANT Impressions 12/16/2022 1:54 PM SENIOR CONSULTANT IMPRESSION: Degenerative changes noted in the hands and feet. No bony erosions seen. No significant soft tissue swelling. Osteopenia is evident. > Interpreting Provider: Aman Monson MD on 12/16/2022 1:54 PM Narrative 12/16/2022 1:54 PM SENIOR CONSULTANT PROCEDURE: XR HAND RIGHT 3VW OR MORE, XR WRIST LEFT 3VW OR MORE, XR WRIST RIGHT 3VW OR MORE, XR FOOT RIGHT 3VW OR MORE, XR FOOT LEFT 3VW OR MORE, XR HAND LEFT 3VW OR MORE, DATE/TIME OF EXAM: 12/16/2022 11:53 AM, LOCATION [facility] INDICATION: M25.50: Polyarthralgia ADDITIONAL CLINICAL INFORMATION: COMPARISON: None. Right hand: No fractures or dislocations seen. Mild osteopenia seen. Central joint space narrowing noted at the proximal interphalangeal joints predominantly third and fourth digits. Mild volar subluxation of the proximal interphalangeal joint of the second digit. No bony erosions or destructions are seen. No significant soft tissue swelling noted. Degenerative changes are seen at the first carpometacarpal joint. Right wrist: No fractures or dislocations seen. Mineral density is normal. Joint spaces are preserved. No bony erosions or destructions are seen. No significant soft tissue swelling noted. Left hand: No fractures or dislocations seen. Mineral density is normal. Mild central joint space narrowing at the proximal interphalangeal joints of the third and fourth digit No bony erosions or destructions are seen. No significant soft tissue swelling noted. Mild osteoarthritis changes at the first carpometacarpal joint. A corticated bony ossicle is seen adjacent to the joint in the webspace. Left wrist: No fractures or dislocations seen. Mineral density is normal. Joint spaces are preserved. No bony erosions or destructions are seen. No significant soft tissue swelling noted. Right foot: Healing/healed fractures of the third and fourth metatarsal bones noted. Decreased bone mineral density. Hilus valgus seen associated with the lateral subluxation of the proximal phalanx from the metatarsal. 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 No bony erosions or destructions are seen. No significant soft tissue swelling noted. Left foot: No fractures or dislocations seen. Minimal decreased in bone mineral density. Joint spaces are preserved. Hilus valgus noted. No bony erosions or destructions are seen. No significant soft tissue swelling noted. Procedure Note Aman Monson MD - 12/16/2022 PROCEDURE: XR HAND RIGHT 3VW OR MORE, XR WRIST LEFT 3VW OR MORE, XRWRIST RIGHT 3VW OR MORE, XR FOOT RIGHT 3VW OR MORE, XR FOOT LEFT 3VW OR MORE,XR HAND LEFT 3VW OR MORE, DATE/TIME OF EXAM: 12/16/2022 11:53 AM, [facility] INDICATION: M25.50: Polyarthralgia ADDITIONAL CLINICAL INFORMATION: COMPARISON: None. Right hand: No fractures or dislocations seen. Mild osteopenia seen. Central joint space narrowing noted at the proximal interphalangealjoints predominantly third and fourth digits. Mild volar subluxation of the proximal interphalangeal joint of the second digit. No bony erosions or destructions are seen. No significant soft tissue swelling noted. Degenerative changes are seen at the first carpometacarpal joint. Right wrist: No fractures or dislocations seen. Mineral density is normal. Joint spaces are preserved. No bony erosions or destructions are seen.No significant soft tissue swelling noted. Left hand: No fractures or dislocations seen. Mineral density is normal. Mild central joint space narrowing at the proximal interphalangealjoints of the third and fourth digit No bony erosions or destructions are seen. No significant soft tissue swelling noted. Mild osteoarthritis changesat the first carpometacarpal joint. A corticated bony ossicle is seenadjacent to the joint in the webspace. Left wrist: No fractures or dislocations seen. Mineral density is normal. Joint spaces are preserved. No bony erosions or destructions are seen.No significant soft tissue swelling noted. Right foot: Healing/healed fractures of the third and fourth metatarsal bones noted. Decreased bone mineral density. Hilus valgus seenassociated with the lateral subluxation of the proximal phalanx from themetatarsal. 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 No bony erosions or destructions are seen. No significant soft tissue swelling noted. Left foot: No fractures or dislocations seen. Minimal decreased in bone mineral density. Joint spaces are preserved. Hilus valgus noted. Nobony erosions or destructions are seen. No significant soft tissue swelling noted. IMPRESSION: Degenerative changes noted in the hands and feet. No bony erosions seen.No significant soft tissue swelling. Osteopenia is evident. > Interpreting Provider: Aman Monson MD on 12/16/2022 1:54PM Bassam Pappas MD DIAGNOSTIC IMAGING O RDERABLES * XR FOOT LEFT 3VW OR MORE (12/16/2022 11:52 AM SENIOR CONSULTANT) Anatomical Region Laterality Modality Ankle / Foot Radiographic Jami ging 12/16/2022 1:43 PM SENIOR CONSULTANT Impressions 12/16/2022 1:54 PM SENIOR CONSULTANT IMPRESSION: Degenerative changes noted in the hands and feet. No bony erosions seen. No significant soft tissue swelling. Osteopenia is evident. > Interpreting Provider: Aman Monson MD on 12/16/2022 1:54 PM Narrative 12/16/2022 1:54 PM SENIOR CONSULTANT PROCEDURE: XR HAND RIGHT 3VW OR MORE, XR WRIST LEFT 3VW OR MORE, XR WRIST RIGHT 3VW OR MORE, XR FOOT RIGHT 3VW OR MORE, XR FOOT LEFT 3VW OR MORE, XR HAND LEFT 3VW OR MORE, DATE/TIME OF EXAM: 12/16/2022 11:53 AM, [facility] INDICATION: M25.50: Polyarthralgia ADDITIONAL CLINICAL INFORMATION: COMPARISON: None. Right hand: No fractures or dislocations seen. Mild osteopenia seen. Central joint space narrowing noted at the proximal interphalangeal joints predominantly third and fourth digits. Mild volar subluxation of the proximal interphalangeal joint of the second digit. No bony erosions or destructions are seen. No significant soft tissue swelling noted. Degenerative changes are seen at the first carpometacarpal joint. Right wrist: No fractures or dislocations seen. Mineral density is normal. Joint spaces are preserved. No bony erosions or destructions are seen. No significant soft tissue swelling noted. Left hand: No fractures or dislocations seen. Mineral density is normal. Mild central joint space narrowing at the proximal interphalangeal joints of the third and fourth digit No bony erosions or destructions are seen. No significant soft tissue swelling noted. Mild osteoarthritis changes at the first carpometacarpal joint. A corticated bony ossicle is seen adjacent to the joint in the webspace. Left wrist: No fractures or dislocations seen. Mineral density is normal. Joint spaces are preserved. No bony erosions or destructions are seen. No significant soft tissue swelling noted. Right foot: Healing/healed fractures of the third and fourth metatarsal bones noted. Decreased bone mineral density. Hilus valgus seen associated with the lateral subluxation of the proximal phalanx from the metatarsal. 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 No bony erosions or destructions are seen. No significant soft tissue swelling noted. Left foot: No fractures or dislocations seen. Minimal decreased in bone mineral density. Joint spaces are preserved. Hilus valgus noted. No bony erosions or destructions are seen. No significant soft tissue swelling noted. Procedure Note Aman Monson MD - 12/16/2022 PROCEDURE: XR HAND RIGHT 3VW OR MORE, XR WRIST LEFT 3VW OR MORE, XRWRIST RIGHT 3VW OR MORE, XR FOOT RIGHT 3VW OR MORE, XR FOOT LEFT 3VW OR MORE,XR HAND LEFT 3VW OR MORE, DATE/TIME OF EXAM: 12/16/2022 11:53 AM, [facility] INDICATION: M25.50: Polyarthralgia ADDITIONAL CLINICAL INFORMATION: COMPARISON: None. Right hand: No fractures or dislocations seen. Mild osteopenia seen. Central joint space narrowing noted at the proximal interphalangealjoints predominantly third and fourth digits. Mild volar subluxation of the proximal interphalangeal joint of the second digit. No bony erosions or destructions are seen. No significant soft tissue swelling noted. Degenerative changes are seen at the first carpometacarpal joint. Right wrist: No fractures or dislocations seen. Mineral density is normal. Joint spaces are preserved. No bony erosions or destructions are seen.No significant soft tissue swelling noted. Left hand: No fractures or dislocations seen. Mineral density is normal. Mild central joint space narrowing at the proximal interphalangealjoints of the third and fourth digit No bony erosions or destructions are seen. No significant soft tissue swelling noted. Mild osteoarthritis changesat the first carpometacarpal joint. A corticated bony ossicle is seenadjacent to the joint in the webspace. Left wrist: No fractures or dislocations seen. Mineral density is normal. Joint spaces are preserved. No bony erosions or destructions are seen.No significant soft tissue swelling noted. Right foot: Healing/healed fractures of the third and fourth metatarsal bones noted. Decreased bone mineral density. Hilus valgus seenassociated with the lateral subluxation of the proximal phalanx from themetatarsal. 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 No bony erosions or destructions are seen. No significant soft tissue swelling noted. Left foot: No fractures or dislocations seen. Minimal decreased in bone mineral density. Joint spaces are preserved. Hilus valgus noted. Nobony erosions or destructions are seen. No significant soft tissue swelling noted. IMPRESSION: Degenerative changes noted in the hands and feet. No bony erosions seen.No significant soft tissue swelling. Osteopenia is evident. > Interpreting Provider: Aman Monson MD on 12/16/2022 1:54PM Bassam Pappas MD DIAGNOSTIC IMAGING O RDERABLES * XR HAND RIGHT 3VW OR MORE (12/16/2022 11:52 AM SENIOR CONSULTANT) Anatomical Region Laterality Modality Wrist / Hand Radiographic Jami ging 12/16/2022 1:43 PM SENIOR CONSULTANT Impressions 12/16/2022 1:54 PM SENIOR CONSULTANT IMPRESSION: Degenerative changes noted in the hands and feet. No bony erosions seen. No significant soft tissue swelling. Osteopenia is evident. > Interpreting Provider: Aman Monson MD on 12/16/2022 1:54 PM Narrative 12/16/2022 1:54 PM SENIOR CONSULTANT PROCEDURE: XR HAND RIGHT 3VW OR MORE, XR WRIST LEFT 3VW OR MORE, XR WRIST RIGHT 3VW OR MORE, XR FOOT RIGHT 3VW OR MORE, XR FOOT LEFT 3VW OR MORE, XR HAND LEFT 3VW OR MORE, DATE/TIME OF EXAM: 12/16/2022 11:53 AM, LOCATION [facility] INDICATION: M25.50: Polyarthralgia ADDITIONAL CLINICAL INFORMATION: COMPARISON: None. Right hand: No fractures or dislocations seen. Mild osteopenia seen. Central joint space narrowing noted at the proximal interphalangeal joints predominantly third and fourth digits. Mild volar subluxation of the proximal interphalangeal joint of the second digit. No bony erosions or destructions are seen. No significant soft tissue swelling noted. Degenerative changes are seen at the first carpometacarpal joint. Right wrist: No fractures or dislocations seen. Mineral density is normal. Joint spaces are preserved. No bony erosions or destructions are seen. No significant soft tissue swelling noted. Left hand: No fractures or dislocations seen. Mineral density is normal. Mild central joint space narrowing at the proximal interphalangeal joints of the third and fourth digit No bony erosions or destructions are seen. No significant soft tissue swelling noted. Mild osteoarthritis changes at the first carpometacarpal joint. A corticated bony ossicle is seen adjacent to the joint in the webspace. Left wrist: No fractures or dislocations seen. Mineral density is normal. Joint spaces are preserved. No bony erosions or destructions are seen. No significant soft tissue swelling noted. Right foot: Healing/healed fractures of the third and fourth metatarsal bones noted. Decreased bone mineral density. Hilus valgus seen associated with the lateral subluxation of the proximal phalanx from the metatarsal. 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 No bony erosions or destructions are seen. No significant soft tissue swelling noted. Left foot: No fractures or dislocations seen. Minimal decreased in bone mineral density. Joint spaces are preserved. Hilus valgus noted. No bony erosions or destructions are seen. No significant soft tissue swelling noted. Procedure Note Aman Monson MD - 12/16/2022 PROCEDURE: XR HAND RIGHT 3VW OR MORE, XR WRIST LEFT 3VW OR MORE, XRWRIST RIGHT 3VW OR MORE, XR FOOT RIGHT 3VW OR MORE, XR FOOT LEFT 3VW OR MORE,XR HAND LEFT 3VW OR MORE, DATE/TIME OF EXAM: 12/16/2022 11:53 AM, [facility] INDICATION: M25.50: Polyarthralgia ADDITIONAL CLINICAL INFORMATION: COMPARISON: None. Right hand: No fractures or dislocations seen. Mild osteopenia seen. Central joint space narrowing noted at the proximal interphalangealjoints predominantly third and fourth digits. Mild volar subluxation of the proximal interphalangeal joint of the second digit. No bony erosions or destructions are seen. No significant soft tissue swelling noted. Degenerative changes are seen at the first carpometacarpal joint. Right wrist: No fractures or dislocations seen. Mineral density is normal. Joint spaces are preserved. No bony erosions or destructions are seen.No significant soft tissue swelling noted. Left hand: No fractures or dislocations seen. Mineral density is normal. Mild central joint space narrowing at the proximal interphalangealjoints of the third and fourth digit No bony erosions or destructions are seen. No significant soft tissue swelling noted. Mild osteoarthritis changesat the first carpometacarpal joint. A corticated bony ossicle is seenadjacent to the joint in the webspace. Left wrist: No fractures or dislocations seen. Mineral density is normal. Joint spaces are preserved. No bony erosions or destructions are seen.No significant soft tissue swelling noted. Right foot: Healing/healed fractures of the third and fourth metatarsal bones noted. Decreased bone mineral density. Hilus valgus seenassociated with the lateral subluxation of the proximal phalanx from themetatarsal. 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 No bony erosions or destructions are seen. No significant soft tissue swelling noted. Left foot: No fractures or dislocations seen. Minimal decreased in bone mineral density. Joint spaces are preserved. Hilus valgus noted. Nobony erosions or destructions are seen. No significant soft tissue swelling noted. IMPRESSION: Degenerative changes noted in the hands and feet. No bony erosions seen.No significant soft tissue swelling. Osteopenia is evident. > Interpreting Provider: Aman Monson MD on 12/16/2022 1:54PM Bassam Pappas MD DIAGNOSTIC IMAGING O RDERABLES * XR HAND LEFT 3VW OR MORE (12/16/2022 11:52 AM SENIOR CONSULTANT) Anatomical Region Laterality Modality Wrist / Hand Radiographic Jami ging 12/16/2022 1:43 PM SENIOR CONSULTANT Impressions 12/16/2022 1:54 PM SENIOR CONSULTANT IMPRESSION: Degenerative changes noted in the hands and feet. No bony erosions seen. No significant soft tissue swelling. Osteopenia is evident. > Interpreting Provider: Aman Monson MD on 12/16/2022 1:54 PM Narrative 12/16/2022 1:54 PM SENIOR CONSULTANT PROCEDURE: XR HAND RIGHT 3VW OR MORE, XR WRIST LEFT 3VW OR MORE, XR WRIST RIGHT 3VW OR MORE, XR FOOT RIGHT 3VW OR MORE, XR FOOT LEFT 3VW OR MORE, XR HAND LEFT 3VW OR MORE, DATE/TIME OF EXAM: 12/16/2022 11:53 AM, LOCATION [facility] INDICATION: M25.50: Polyarthralgia ADDITIONAL CLINICAL INFORMATION: COMPARISON: None. Right hand: No fractures or dislocations seen. Mild osteopenia seen. Central joint space narrowing noted at the proximal interphalangeal joints predominantly third and fourth digits. Mild volar subluxation of the proximal interphalangeal joint of the second digit. No bony erosions or destructions are seen. No significant soft tissue swelling noted. Degenerative changes are seen at the first carpometacarpal joint. Right wrist: No fractures or dislocations seen. Mineral density is normal. Joint spaces are preserved. No bony erosions or destructions are seen. No significant soft tissue swelling noted. Left hand: No fractures or dislocations seen. Mineral density is normal. Mild central joint space narrowing at the proximal interphalangeal joints of the third and fourth digit No bony erosions or destructions are seen. No significant soft tissue swelling noted. Mild osteoarthritis changes at the first carpometacarpal joint. A corticated bony ossicle is seen adjacent to the joint in the webspace. Left wrist: No fractures or dislocations seen. Mineral density is normal. Joint spaces are preserved. No bony erosions or destructions are seen. No significant soft tissue swelling noted. Right foot: Healing/healed fractures of the third and fourth metatarsal bones noted. Decreased bone mineral density. Hilus valgus seen associated with the lateral subluxation of the proximal phalanx from the metatarsal. 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 No bony erosions or destructions are seen. No significant soft tissue swelling noted. Left foot: No fractures or dislocations seen. Minimal decreased in bone mineral density. Joint spaces are preserved. Hilus valgus noted. No bony erosions or destructions are seen. No significant soft tissue swelling noted. Procedure Note Aman Monson MD - 12/16/2022 PROCEDURE: XR HAND RIGHT 3VW OR MORE, XR WRIST LEFT 3VW OR MORE, XRWRIST RIGHT 3VW OR MORE, XR FOOT RIGHT 3VW OR MORE, XR FOOT LEFT 3VW OR MORE,XR HAND LEFT 3VW OR MORE, DATE/TIME OF EXAM: 12/16/2022 11:53 AM, [facility] INDICATION: M25.50: Polyarthralgia ADDITIONAL CLINICAL INFORMATION: COMPARISON: None. Right hand: No fractures or dislocations seen. Mild osteopenia seen. Central joint space narrowing noted at the proximal interphalangealjoints predominantly third and fourth digits. Mild volar subluxation of the proximal interphalangeal joint of the second digit. No bony erosions or destructions are seen. No significant soft tissue swelling noted. Degenerative changes are seen at the first carpometacarpal joint. Right wrist: No fractures or dislocations seen. Mineral density is normal. Joint spaces are preserved. No bony erosions or destructions are seen.No significant soft tissue swelling noted. Left hand: No fractures or dislocations seen. Mineral density is normal. Mild central joint space narrowing at the proximal interphalangealjoints of the third and fourth digit No bony erosions or destructions are seen. No significant soft tissue swelling noted. Mild osteoarthritis changesat the first carpometacarpal joint. A corticated bony ossicle is seenadjacent to the joint in the webspace. Left wrist: No fractures or dislocations seen. Mineral density is normal. Joint spaces are preserved. No bony erosions or destructions are seen.No significant soft tissue swelling noted. Right foot: Healing/healed fractures of the third and fourth metatarsal bones noted. Decreased bone mineral density. Hilus valgus seenassociated with the lateral subluxation of the proximal phalanx from themetatarsal. 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 No bony erosions or destructions are seen. No significant soft tissue swelling noted. Left foot: No fractures or dislocations seen. Minimal decreased in bone mineral density. Joint spaces are preserved. Hilus valgus noted. Nobony erosions or destructions are seen. No significant soft tissue swelling noted. IMPRESSION: Degenerative changes noted in the hands and feet. No bony erosions seen.No significant soft tissue swelling. Osteopenia is evident. > Interpreting Provider: Aman Monson MD on 12/16/2022 1:54PM Bassam Pappas MD DIAGNOSTIC IMAGING O RDERABLES * XR WRIST RIGHT 3VW OR MORE (12/16/2022 11:52 AM SENIOR CONSULTANT) Anatomical Region Laterality Modality Wrist / Hand Radiographic Jami ging 12/16/2022 1:43 PM SENIOR CONSULTANT Impressions 12/16/2022 1:54 PM SENIOR CONSULTANT IMPRESSION: Degenerative changes noted in the hands and feet. No bony erosions seen. No significant soft tissue swelling. Osteopenia is evident. > Interpreting Provider: Aman Monson MD on 12/16/2022 1:54 PM Narrative 12/16/2022 1:54 PM SENIOR CONSULTANT PROCEDURE: XR HAND RIGHT 3VW OR MORE, XR WRIST LEFT 3VW OR MORE, XR WRIST RIGHT 3VW OR MORE, XR FOOT RIGHT 3VW OR MORE, XR FOOT LEFT 3VW OR MORE, XR HAND LEFT 3VW OR MORE, DATE/TIME OF EXAM: 12/16/2022 11:53 AM, [facility] INDICATION: M25.50: Polyarthralgia ADDITIONAL CLINICAL INFORMATION: COMPARISON: None. Right hand: No fractures or dislocations seen. Mild osteopenia seen. Central joint space narrowing noted at the proximal interphalangeal joints predominantly third and fourth digits. Mild volar subluxation of the proximal interphalangeal joint of the second digit. No bony erosions or destructions are seen. No significant soft tissue swelling noted. Degenerative changes are seen at the first carpometacarpal joint. Right wrist: No fractures or dislocations seen. Mineral density is normal. Joint spaces are preserved. No bony erosions or destructions are seen. No significant soft tissue swelling noted. Left hand: No fractures or dislocations seen. Mineral density is normal. Mild central joint space narrowing at the proximal interphalangeal joints of the third and fourth digit No bony erosions or destructions are seen. No significant soft tissue swelling noted. Mild osteoarthritis changes at the first carpometacarpal joint. A corticated bony ossicle is seen adjacent to the joint in the webspace. Left wrist: No fractures or dislocations seen. Mineral density is normal. Joint spaces are preserved. No bony erosions or destructions are seen. No significant soft tissue swelling noted. Right foot: Healing/healed fractures of the third and fourth metatarsal bones noted. Decreased bone mineral density. Hilus valgus seen associated with the lateral subluxation of the proximal phalanx from the metatarsal. 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 No bony erosions or destructions are seen. No significant soft tissue swelling noted. Left foot: No fractures or dislocations seen. Minimal decreased in bone mineral density. Joint spaces are preserved. Hilus valgus noted. No bony erosions or destructions are seen. No significant soft tissue swelling noted. Procedure Note Aman Monson MD - 12/16/2022 PROCEDURE: XR HAND RIGHT 3VW OR MORE, XR WRIST LEFT 3VW OR MORE, XRWRIST RIGHT 3VW OR MORE, XR FOOT RIGHT 3VW OR MORE, XR FOOT LEFT 3VW OR MORE,XR HAND LEFT 3VW OR MORE, DATE/TIME OF EXAM: 12/16/2022 11:53 AM, [facility] INDICATION: M25.50: Polyarthralgia ADDITIONAL CLINICAL INFORMATION: COMPARISON: None. Right hand: No fractures or dislocations seen. Mild osteopenia seen. Central joint space narrowing noted at the proximal interphalangealjoints predominantly third and fourth digits. Mild volar subluxation of the proximal interphalangeal joint of the second digit. No bony erosions or destructions are seen. No significant soft tissue swelling noted. Degenerative changes are seen at the first carpometacarpal joint. Right wrist: No fractures or dislocations seen. Mineral density is normal. Joint spaces are preserved. No bony erosions or destructions are seen.No significant soft tissue swelling noted. Left hand: No fractures or dislocations seen. Mineral density is normal. Mild central joint space narrowing at the proximal interphalangealjoints of the third and fourth digit No bony erosions or destructions are seen. No significant soft tissue swelling noted. Mild osteoarthritis changesat the first carpometacarpal joint. A corticated bony ossicle is seenadjacent to the joint in the webspace. Left wrist: No fractures or dislocations seen. Mineral density is normal. Joint spaces are preserved. No bony erosions or destructions are seen.No significant soft tissue swelling noted. Right foot: Healing/healed fractures of the third and fourth metatarsal bones noted. Decreased bone mineral density. Hilus valgus seenassociated with the lateral subluxation of the proximal phalanx from themetatarsal. 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 No bony erosions or destructions are seen. No significant soft tissue swelling noted. Left foot: No fractures or dislocations seen. Minimal decreased in bone mineral density. Joint spaces are preserved. Hilus valgus noted. Nobony erosions or destructions are seen. No significant soft tissue swelling noted. IMPRESSION: Degenerative changes noted in the hands and feet. No bony erosions seen.No significant soft tissue swelling. Osteopenia is evident. > Interpreting Provider: Aman Monson MD on 12/16/2022 1:54PM Bassam Pappas MD DIAGNOSTIC IMAGING O RDERABLES * XR WRIST LEFT 3VW OR MORE (12/16/2022 11:52 AM SENIOR CONSULTANT) Anatomical Region Laterality Modality Wrist / Hand Radiographic Jami ging 12/16/2022 1:43 PM SENIOR CONSULTANT Impressions 12/16/2022 1:54 PM SENIOR CONSULTANT IMPRESSION: Degenerative changes noted in the hands and feet. No bony erosions seen. No significant soft tissue swelling. Osteopenia is evident. > Interpreting Provider: Aman Monson MD on 12/16/2022 1:54 PM Narrative 12/16/2022 1:54 PM SENIOR CONSULTANT PROCEDURE: XR HAND RIGHT 3VW OR MORE, XR WRIST LEFT 3VW OR MORE, XR WRIST RIGHT 3VW OR MORE, XR FOOT RIGHT 3VW OR MORE, XR FOOT LEFT 3VW OR MORE, XR HAND LEFT 3VW OR MORE, DATE/TIME OF EXAM: 12/16/2022 11:53 AM, LOCATION [facility] INDICATION: M25.50: Polyarthralgia ADDITIONAL CLINICAL INFORMATION: COMPARISON: None. Right hand: No fractures or dislocations seen. Mild osteopenia seen. Central joint space narrowing noted at the proximal interphalangeal joints predominantly third and fourth digits. Mild volar subluxation of the proximal interphalangeal joint of the second digit. No bony erosions or destructions are seen. No significant soft tissue swelling noted. Degenerative changes are seen at the first carpometacarpal joint. Right wrist: No fractures or dislocations seen. Mineral density is normal. Joint spaces are preserved. No bony erosions or destructions are seen. No significant soft tissue swelling noted. Left hand: No fractures or dislocations seen. Mineral density is normal. Mild central joint space narrowing at the proximal interphalangeal joints of the third and fourth digit No bony erosions or destructions are seen. No significant soft tissue swelling noted. Mild osteoarthritis changes at the first carpometacarpal joint. A corticated bony ossicle is seen adjacent to the joint in the webspace. Left wrist: No fractures or dislocations seen. Mineral density is normal. Joint spaces are preserved. No bony erosions or destructions are seen. No significant soft tissue swelling noted. Right foot: Healing/healed fractures of the third and fourth metatarsal bones noted. Decreased bone mineral density. Hilus valgus seen associated with the lateral subluxation of the proximal phalanx from the metatarsal. 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 No bony erosions or destructions are seen. No significant soft tissue swelling noted. Left foot: No fractures or dislocations seen. Minimal decreased in bone mineral density. Joint spaces are preserved. Hilus valgus noted. No bony erosions or destructions are seen. No significant soft tissue swelling noted. Procedure Note Aman Monson MD - 12/16/2022 PROCEDURE: XR HAND RIGHT 3VW OR MORE, XR WRIST LEFT 3VW OR MORE, XRWRIST RIGHT 3VW OR MORE, XR FOOT RIGHT 3VW OR MORE, XR FOOT LEFT 3VW OR MORE,XR HAND LEFT 3VW OR MORE, DATE/TIME OF EXAM: 12/16/2022 11:53 AM, [facility] INDICATION: M25.50: Polyarthralgia ADDITIONAL CLINICAL INFORMATION: COMPARISON: None. Right hand: No fractures or dislocations seen. Mild osteopenia seen. Central joint space narrowing noted at the proximal interphalangealjoints predominantly third and fourth digits. Mild volar subluxation of the proximal interphalangeal joint of the second digit. No bony erosions or destructions are seen. No significant soft tissue swelling noted. Degenerative changes are seen at the first carpometacarpal joint. Right wrist: No fractures or dislocations seen. Mineral density is normal. Joint spaces are preserved. No bony erosions or destructions are seen.No significant soft tissue swelling noted. Left hand: No fractures or dislocations seen. Mineral density is normal. Mild central joint space narrowing at the proximal interphalangealjoints of the third and fourth digit No bony erosions or destructions are seen. No significant soft tissue swelling noted. Mild osteoarthritis changesat the first carpometacarpal joint. A corticated bony ossicle is seenadjacent to the joint in the webspace. Left wrist: No fractures or dislocations seen. Mineral density is normal. Joint spaces are preserved. No bony erosions or destructions are seen.No significant soft tissue swelling noted. Right foot: Healing/healed fractures of the third and fourth metatarsal bones noted. Decreased bone mineral density. Hilus valgus seenassociated with the lateral subluxation of the proximal phalanx from themetatarsal. 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 No bony erosions or destructions are seen. No significant soft tissue swelling noted. Left foot: No fractures or dislocations seen. Minimal decreased in bone mineral density. Joint spaces are preserved. Hilus valgus noted. Nobony erosions or destructions are seen. No significant soft tissue swelling noted. IMPRESSION: Degenerative changes noted in the hands and feet. No bony erosions seen.No significant soft tissue swelling. Osteopenia is evident. > Interpreting Provider: Aman Monson MD on 12/16/2022 1:54PM Bassam Pappas MD DIAGNOSTIC IMAGING O [facility] Care Teams Unit Coordinator Relationship Specialty Start Date End Date Michael Barber MD [address] [place] [address] PCP - General 07/06/22
--- OUTSIDE RECORDS SUMMARY | 2024-12-05 14:19 | XMS_ITS | Patient Health Record ---
Author Organization [facility] Address [address] [place] [address] Care Team Providers Care Deputy Sheriff Generalist/Bailiff Name Role Phone Abelino Reid Unavailable Unavailable Allergies Allergen (clinical drug ingredient) Drug/Non Drug Allergy documented on EMR Reaction Allergy Type Onset Date Status ciprofloxacin Cipro unknown Drug Allergy Act stefani rosuvastatin Crestor unknown Drug Allergy Acti ve fenoprofen Nalfon unknown Drug Allergy Active erythromycin Erythromycin unknown Drug Allergy A ctive Iodine unknown Drug Allergy Active Reason For Referral No Information Medications Medication SIG (Take, Route, Frequency, Duration) Notes Start Date End Date Status Dicyclomine HCl 10 MG 2 capsules Orally Three times a day as needed Active Ibuprofen 400 MG 1 tablet with food o r milk as needed Orally Three times a day Active Stool Softener Activ e Cyanocobalamin 100 MCG as directed Orally Active HYDROcodone-Acetaminophen 5-325 MG 1 tablet as needed Orally twice daily as needed for pain for 30 days 04/27/2022 Active Synthroid 88 MCG 1 tablet in the morning on an empty stomach Orally Once a day Active Omeprazole 20 MG 1 capsule 30 minutes before morning meal Orally Once a day Active Plaquenil 200 MG 2 tablet with food o r milk Orally Once a day for 30 days Active Social History Tobacco Use: Social History Observation Description Date Details (start date - stop date) Never Smoker NA - NA Tobacco Use/Smoking Question Answer Notes Are you a nonsmoker Problems Problem Type SNOMED Code ICD Code Onset Dates Problem Status W/U Status Risk Notes Problem 977422470 TYRELL positive (R76.8) Active confirmed Problem Seronegative rheumatoid arthritis (568915752) 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) Active confirmed Problem Backache (166077415) Back pain, unspecified back location, unspecified back pain laterality, unspecified chronicity (M54.9) Active confirmed Problem H/O: high risk medication (567815224) High risk medication use (Z79.899) Active confirmed Problem 11289365 Dry mouth (R68.2) Active confirmed Plan Of Treatment Pending Test Test Name Order Date X ray : Hip, bilateral 04/01/2022 X ray : SI joint, left 04/01/2022 X ray : SI joint, right 04/01/2022 X ray : Spines, lumbar 2 views 2 Insurance Providers Payer Name Payer Address Payer Phone Subscriber Number Group Number Insured Name Patient Relationship to Insured Coverage Start Date Coverage End Date Medicare Part B [address] [place] [address] [id number] JARVIS VALDOVINOS Self - patient is the insured [address] [address] [place] [address] [phone] [id number] JARVIS VALDOVINOS Self - patient is the insured Medications Administered Medication Instructions Date of Administration Dosage Notes Ketorolac Tromethamine 04/27/2022 15 mg Medical (General) History Medical History History ICD Code sjogren syndrome unspecified fracture of shaft of humerus left arm sequela sacral back pain elevated blood pressure osteopnia back pain hyperlidemia hypothroidism Surgical History Surgery Date(Month/Year) Gastronitis 2017 right breast bx 08/2016 choleecystectomy nasal procedure for obstruction Hysterectomy
--- OUTSIDE RECORDS SUMMARY | 2024-12-05 14:19 | XMS_ITS | Referral Summary ---
Author Organization [facility] Address [address] [place] [address] Care Team Providers Care Dowel Inspector Name Role Phone Michael Barber MD Primary Care Provider [phone] Source Comments [facility],non-owned Affiliates and Associated Physician Practices is amultiple site organization consisting of ambulatory clinics and hospital sitesin [place], [place], [place] and [place]. This disclosure is being madepursuant to the Care Everywhere program and may not contain all information available regarding this patient. Last updated 18.[facility] Allergies Active Allergy Reactions Criticality Noted Date Comments Contrast-Iodinated Agents For Ct/Other Unknown 12/16/2022 Erythromycin Other 12/16/2022 Fenoprofen Rash Medium 12/16/2022 Iodine Other 12/16/2022 Rosuvastatin Other 12/16/2022 Medications * Be aware that medications may not be up to date on this document. Alwaysverify current medications with the patient. Medication Sig Dispensed Refills Start Date End Date Status dicyclomine (Bentyl) 20 MG tablet TAKE 1 TABLET BY MOUTH FOUR TIMES DAILY NEEDED FOR CRAMPING 06/16/2022 Active lisinopril (Prinivil; Zestril) 10 MG tablet 11/25/2022 Act stefani Synthroid 88 MCG tablet Take 1 (one) tablet by mouth once daily 06/18/2022 Active omeprazole (PriLOSEC) 20 MG capsule Take 1 (one) capsule by mouth once daily 06/16/2022 Active betamethasone dipropionate 0.05 % lotion 04/13/2023 Active ascorbic acid (Vitamin C) 250 MG tablet Take 2 (two) tablets by mouth once daily Active ibandronate (Boniva) 150 MG tablet 04/07/2023 Active ibuprofen (Motrin) 200 MG tablet Take 1 (one) tablet by mouth every 6 hours as needed Active acetaminophen (Tylenol) 500 MG tablet Take 1 (one) tablet by mouth every 6 hours as needed Active VITAMIN D PO Active calcium carbonate (Tums) 500 MG chew tablet Take 1 (one) tablet by mouth daily with food Active Social History Tobacco Use Types Packs/Day [...] Mass Index 26.13 05/09/2023 11:07 AM CDT Plan of Treatment Not on file Care Teams Dowel Inspector Relationship Specialty Start Date End Date Michael Barber MD [address] [place] [address] PCP - General 07/06/22
--- OUTSIDE RECORDS SUMMARY | 2024-12-05 14:20 | XMS_ITS | Clinical Summary ---
Author Organization [facility] Address [address] [place] [address] Care Team Providers Care Flatwork Folder Name Role Phone Michael Barber MD Primary Care Provider [phone] Source Comments [facility],non-owned Affiliates and Associated Physician Practices is amultiple site organization consisting of ambulatory clinics and hospital sitesin [place], [place], [place] and [place]. This disclosure is being madepursuant to the Care Everywhere program and may not contain all information available regarding this patient. Last updated 18.[facility] Allergies Active Allergy Reactions Criticality Noted Date [...] tablet by mouth daily with food Active Family History Medical History Relation Name Comments Sjogren's Syndrome Daughter Relation Name Status Comments Daughter Alive Social History Tobacco Use Types Packs/Day Years [...] 05/09/2023 11:07 AM CDT Plan of Treatment Health Maintenance Due Date Last Done Comments BONE DENSITY TESTING 1940 MEDICARE AWV 12 MONTHS 1940 DTAP/TDAP/TD VACCINES (1 - Tdap) 1960 PNEUMOCOCCAL VACCINE 50+ (1 of 1 - PCV) 12/19/1991 ZOSTER VACCINE (1 of 2) 12/19/1991 Respiratory Syncytial Virus (RSV) Vaccine Pt: or over 60 yrs (1 - 1-dose 75+ series) 2016 COVID-19 VACCINE ( - 2023-2 5 season) 2024 INFLUENZA VACCINE (#1) 2024 DEPRESSION SCREENING 10/10/2024 12/16/2022 HEPATITIS B VACCINE Aged Out No longe r eligible based on patient's age to complete this topic HIB VACCINE Aged Out No longer eligi ble based on patient's age to complete this topic HPV VACCINE Aged Out No longer eligi ble based on patient's age to complete this topic MENINGOCOCCAL (Group B) VACCINE Aged Out No longer eligible based on patient's age to complete this topic MENINGOCOCCAL VACCINE Aged Out No yamel carola eligible based on patient's age to complete this topic Care Teams Flatwork Folder Relationship Specialty Start Date End Date Michael Barber MD [address] [place] [address] PCP - General 07/06/22
== END 2024-12-05 12:52 | disposition home or self-care (01) ==
LOC: ANHAUDIO 12:52
PROVIDERS: PCP Family Medicine; Visit Provider Family Medicine
DX: H90.3 Sensorineural hearing loss, bilateral (principal); H93.8X3 Other specified disorders of ear, bilateral
CPT/HCPCS: 92557; 92567

== ENCOUNTER 2025-03-08 17:49 | Emergency (ER) | payer MEDICARE, OTHER, SELFPAY ==
--- NOTE | ~2025-03-08 | CT_ITS ---
CT abdomen pelvis wo con Ordering provider: Umer Hodges MD History: 84 years Female with . LLQ pain radiating to RLQ and back . Comparison: May 26, 2024 Technique: CT abdomen and pelvis without IV and without oral contrast. Automated exposure control and iterative reconstruction technique were employed. The dose-length product was 445.98 mGy-cm. Findings: VISUALIZED LOWER CHEST: Underlying emphysematous changes. UPPER ABDOMINAL ORGANS: Liver: Normal. Gallbladder: Status post cholecystectomy. Spleen: Normal. Stomach/duodenum: Normal. Pancreas: Normal. Adrenals: Normal. Kidneys: Left kidney is smaller than the right. Hydronephrotic changes versus parapelvic cysts are se en in the right side. PELVIC ORGANS: The bladder is underfilled. BOWEL AND MESENTERY: Colon: No evidence of diverticulitis. Appendix is not demonstrated. Small Bowel: Normal. No obstruction. Peritoneum/mesentery: No free air or free fluid. No mesenteric lymphadenopathy. RETROPERITONEUM: Mild atheromatous disease of the abdominal aorta. Radiopaque structure is extending between the inferior vena cava and paravertebral area which may be a cement. No retroperitoneal lymp hadenopathy. MUSCULOSKELETAL: Superficial soft tissues: The superficial soft tissues are normal. Bones: Age appropriate degenerative changes of the spine. Multilevel vertebroplasty. Pubic symphysiti s. Bilateral sacroiliacs. IMPRESSION: 1. No evidence of appendicitis, diverticulitis or intestinal obstruction. 2. Left kidney is smaller than the right. 3. Right kidney hydronephrotic changes versus parapelvic cysts. Reviewed, dictated and finalized at location A.
--- OUTSIDE RECORDS SUMMARY | 2025-03-08 17:51 | XMS_ITS | Patient Health Record ---
Author Organization [facility] Address [address] [place] [address] Care Team Providers Care Manager Maintenance Name Role Phone Abelino Reid Unavailable Unavailable [...] Problem Status W/U Status Risk Notes Problem [id number] TYRELL positive (R76.8) Active confirmed Problem Seronegative rheumatoid arthritis (979313042) 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) Active confirmed Problem Back pain, unspecified back location, unspecified back pain laterality, unspecified chronicity (M54.9) Active confirmed Problem H/O: high risk medication (907123905) High risk medication use (Z79.899) Active confirmed Problem 91972893 Dry mouth (R68.2) Active confirmed Plan Of [...] [address] [place] [address] [id number] JARVIS VALDOVINOS Self - patient is the insured [place] [address] [id number] JARVIS VALDOVINOS Self - patient is the [...]
--- OUTSIDE RECORDS SUMMARY | 2025-03-08 17:51 | XMS_ITS | Clinical Summary ---
Author Organization [facility] Address [address] [place] [address] Care Team Providers Care Music Composition Teacher Name Role Phone Michael Babrer MD Primary Care Provider [phone] Source Comments [facility],non-owned Affiliates and Associated Physician Practices is amultiple site organization consisting of ambulatory clinics and hospital sitesin [place], [place], [place] and [place]. This disclosure is being madepursuant to the Care Everywhere program and may not contain all information available regarding this patient. Last updated 18.[facility] Allergies Active Allergy Reactions Criticality Noted Date Comments Contrast-Iodinated Agents For Ct/Other Unknown 12/16/2022 Erythromycin Other 12/16/2022 Fenoprofen Rash Medium 12/16/2022 Iodine Other 12/16/2022 Rosuvastatin Other 12/16/2022 Medications * Be aware that medications may not be up to date on this document. Alwaysverify current medications with the patient. dicyclomine (Bentyl) 20 MG tablet TAKE 1 TABLET BY MOUTH FOUR TIMES DAILY NEEDED FOR CRAMPING 2 Active lisinopril (Prinivil; Zestril) 10 MG tablet 3 Active Synthroid 88 MCG tablet Take 1 (one) tablet by mouth once daily 2 Active omeprazole (PriLOSEC) 20 MG capsule Take 1 (one) capsule by mouth once daily 2 Active betamethasone dipropionate 0.05 % lotion 3 Active ascorbic acid (Vitamin C) 250 MG tablet Take 2 (two) tablets by mouth once daily Active ibandronate (Boniva) 150 MG tablet Active ibuprofen (Motrin) 200 MG tablet Take [...] Date Recorded PHQ2 TOTAL SCORE 1 05/09/2023 Comments Unknown Sex and Gender Information Value Date Recorded Sex Assigned at Not on file Legal Sex Female 2:52 PM CDT Gender Identity Not on file [...] 11:07 AM CDT Height 162.6 cm (5' 4) 05/09/2023 11:07 AM CDT Body Mass Index [...] VACCINE ( - 2023-2 5 season) 2024 DEPRESSION SCREENING 10/10/2024 12/16/2022 INFLUENZA VACCINE (Season Ended) 2025 HEPATITIS B VACCINE Aged Out No longe r eligible based on patient's age to complete this topic HIB VACCINE Aged Out No longer eligi ble based on patient's age to complete this topic HPV VACCINE Aged Out No longer eligi ble based on patient's age to complete this topic MENINGOCOCCAL (Group B) VACC INE SHARED DECISION-MAKING Aged Out No longer eligibl e based on patient's age to complete this topic MENINGOCOCCAL GROUPS A/C/Y/W VACCINE Aged Out No longer eligible b ased on patient's age to complete this topic Insurance MEDICARE [facility] MEDICARE [employer] [place] [employer] [place] [employer] R[employer]K SELF PAY NO INSURANCE Member Subscriber Plan / Payer (Ef fective for All Dates) Name:Carla Rosas Member ID:Not on file Relation to Subscriber:Not on file Name:CARLA ROSAS Subscriber ID:Not on file (Home) Address: [address] [place] [phone] Payer ID:Not on file Group ID:Not on file Type:Self Pay Address: [place], [place] Care Teams Music Composition Teacher Relationship Specialty Start Date End Date Michael Barber MD [address] [place] [address] PCP - General 07/06/22
[2025-03-08 17:52] VITALS: BP 156/85; PULSE 106; RESP 20; TEMP 36.6; O2SAT 99
[2025-03-08 19:01] LABS: Alanine Aminotransferase 24 U/L (6-35); Albumin Level 4.7 g/dL (3.5-5.1); Alkaline Phosphatase 79 U/L (38-126); Anion Gap 14 mmol/L (4-12); Aspartate Amino Transferase 37 U/L (14-36); Blood Urea Nitrogen 31 mg/dL (7-17); Calcium 9.8 mg/dL (8.4-10.2); Carbon Dioxide 21 mmol/L (22-30); Chloride 103 mmol/L (98-107); Estimated CRCL calculation 24 ml/min; Estimated Glomerular Filt Rate 37; Glucose 96 mg/dL (65-110); Lipase 161 U/L (23-300); Sodium 138 mmol/L (137-145)
--- OUTSIDE RECORDS SUMMARY | 2025-03-08 19:06 | XMS_ITS | Clinical Summary ---
Author Organization [email or web address] Address [address] [place] [address] Care Team Providers Care Preschool Teacher Name Role Phone Michael Barber MD Primary Care Provider [phone] Source Comments [email or web address],non-owned Affiliates and Associated Physician Practices is amultiple site organization consisting of ambulatory clinics and hospital sitesin [place], [place], [place] and [place]. This disclosure is being madepursuant to the Care Everywhere program and may not contain all information available regarding this patient. Last updated 18.[email or web address] Allergies Active Allergy Reactions Criticality Noted Date [...] age to complete this topic Insurance MEDICARE [facility] MEDICARE [employer] [place] [employer] [place] [employer] R[employer]K SELF PAY NO INSURANCE Member Subscriber Plan / Payer (Ef fective for All Dates) Name:Carla Rosas Member ID:Not on file Relation to Subscriber:Not on file Name:CARLA ROSAS Subscriber ID:Not on file (Home) Address: [address] [place] [phone] Payer ID:Not on file Group ID:Not on file Type:Self Pay Address: [place], [place] Care Teams Preschool Teacher Relationship Specialty Start Date End Date Michael Barber MD [address] [place] [address] PCP - General 07/06/22
[2025-03-08] MEDS: SODIUM CHLORIDE 0.9% IV 2,000 ML 999 ML IV CONT (19:07)
[2025-03-08] MEDS: HYDROmorphone HCL INJ (*CRX) 2 MG/ML VIAL 0.5 MG IV PUSH (19:08)
[2025-03-08 19:31] LABS: Basophils Absolute Auto 0.1 K/mm3 (0.0-0.1); Basophils Percent Auto 0.4 % (0.2-1.2); Eosinophils Percent Auto 0.2 % (0-4.4); Hematocrit 43.7 % (37.0-47.0); Hemoglobin 13.9 g/dL (12.0-15.0); Immature Granulocyte Absolute 0.05 K/mm3 (0.00-0.031); Immature Granulocyte Percent A 0.4 % (0-0.5); Lymphocytes Absolute Auto 2.25 K/mm3 (0.9-3.2); Lymphocytes Percent Auto 17.1 % (18.3-44.2); Mean Corpuscular HGB Conc 31.8 g/dl (32-36); Mean Corpuscular Hemoglobin 30.2 pg (26-34); Mean Platelet Volume 10.7 fl (7.4-10.4); Monocytes Absolute Auto 1.2 K/mm3 (0.1-0.6); Monocytes Percent Auto 8.8 % (2.6-8.5); Neutrophils Absolute Auto 9.6 K/mm3 (1.3-6.7); Neutrophils Percent Auto 73.1 % (45.5-73.1); Platelet Count Result 269 k/mm3 (150-375); Red Cell Distribution Width 12.6 % (11.5-14.5); White Blood Count 13.2 K/mm3 (4.5-10.0)
[2025-03-08 20:00] LABS: Add Urine Microscopic? YES; Appearance Urine Clear (Clear); Bacteria Urine Rare /hpf; Bilirubin Urine Negative (Negative); Blood Urine Negative (Negative); Color Urine Yellow (Yellow); Glucose Urine UA Negative (Negative); Ketones Urine 1+ mg/dL (Negative); Leukocyte Esterase Ur 2+ LEU/UL (Negative); Nitrate Urine Negative (Negative); Protein Urine Trace mg/dL (Negative); RBC Urine 0-2 /hpf (0-2); Specific Grav Ur 1.022 (1.001-1.035); Squamous Epithelial Cell Urine Moderate /hpf (Few); WBC Urine 21-50 /hpf (0-3)
--- NOTE | 2025-03-08 20:18 | ED.GENADULT ---
HPI - General Adult General Chief complaint: Abdominal Pain Stated complaint: ABD PAIN Time Seen by Provider: 03/08/25 18:19 History of Present Illness HPI narrative: This is a 31-year-old female with history of microscopic colitis on budesonide and IBS on prn bentyl presenting for abdominal pain. Patient says over last 4-5 days she has had a cramping pain in left lower quadrant that radiates across her lower abdomen and into her back. It is worsening in intensity. It is associated with nonbloody diarrhea. She has had nausea but no vomiting. She has taken Pepto-Bismol which has helped with the diarrhea. No fevers chills chest pain difficulty breathing or urinary symptoms. GI - Dr. Funez. Related Data Home Medications ?Medication ?Instructions ?Recorded ?Confirmed ?Last Taken ?Type acetaminophen 500 mg tablet 1,000 mg PO Q6H PRN pain or fever 05/26/24 01/10/25 Unknown History melatonin 3 mg tablet 3 mg PO HS PRN Insomnia 05/26/24 01/10/25 Unknown History Allergies Allergy/AdvReac Type Severity Reaction Status Date / Time adhesive tape Allergy Mild Unknown Verified 03/08/25 18:29 iodine Allergy Mild Unknown Verified 03/08/25 18:29 metronidazole (From Flagyl) AdvReac Nausea and Verified 03/08/25 18:29 Vomiting IV dye Allergy Intermediate Hives Uncoded 03/08/25 18:29 PMFSH Past Medical History Medical History Microscopic colitis Lymphocytic colitis Diarrhea Nausea Chondrodermatitis nodularis helicis Chronic kidney disease, stage 3 unspecified Arthritis of foot, right Acquired pes 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 Hallux valgus (acquired), right foot HTN (hypertension) Chronic back pain Depression Osteoporosis Compression fx, lumbar spine L2,3,4 Hypothyroidism GERD (gastroesophageal reflux disease) IBS (irritable bowel syndrome) Surgical History Surgical History History of rhinoplasty History of tonsillectomy Hx of vertebroplasty L2,3,4 History of cholecystectomy History of hysterectomy Family History Family History Father Renal cancer Mother [place] cancer Sibling Diabetes mellitus Social History Social History Smoking status: Never smoker Alcohol intake: never Substance use: never Substance use type: does not use Do You Feel Safe in your Home?: Yes Lack of Transportation: No Lack of Food: Never True Current Housing: I Have Housing Concerned About Future Housing: No Difficulty Paying Gas/Electric Bills: No Difficulty Paying for Meds: No Currently Unemployed: No Education: Trade/Vocational Certificate Difficulty w/ Childcare or Family Care: No Living arrangements: with family Occupation/Education: retired Gender identity (if verbalized by the patient): Female Sexual Orientation (if Verbalized by the Patient): Straight or Heterosexual Spiritual care concerns: No Exam Narrative: APPEARANCE: No apparent distress. Head: atraumatic. EYES: EOMI, NOSE: Atraumatic NECK: Trachea midline RESPIRATORY: No increased rate of breathing CTAB CARDIOVASCULAR: RRR, no peripheral edema ABDOMINAL: Tenderness palpation left lower abdomen and suprapubic region. No guarding or rebound. No CVA tenderness. MUSCULOSKELETAl: No obvious deformities NEURO: Alert. Moving 4/4 extremities SKIN:: Warm, dry. Normal color PSYCHIATRIC: Normal affect Course Vital Signs Vital signs: Vital Signs Temperature 97.9 F 03/08/25 17:52 Pulse Rate 106 H 03/08/25 17:52 Respiratory Rate 20 03/08/25 17:52 Blood Pressure 156/85 H 03/08/25 17:52 Pulse Oximetry 99 03/08/25 17:52 Oxygen Delivery Room Air 03/08/25 17:52 Temperature 97.9 F 03/08/25 17:52 Pulse Rate 88 03/08/25 20:29 Respiratory Rate 18 03/08/25 20:29 Blood Pressure 129/57 L 03/08/25 20:29 Pulse Oximetry 100 03/08/25 20:29 Oxygen Delivery Room Air 03/08/25 17:52 Medical Decision Making [facility] Narrative Medical decision making narrative: -Course: This is an 84-year-old female with history of microscopic colitis and IBS presenting for abdominal pain. CT abdomen pelvis without contrast did not find any causative findings. White count slightly elevated but the patient is on daily steroid therapy. creatinine slightly bumped from baseline. Given 2 L of fluid here in the ED. Patient's urinalysis was indicative infection but she does not have any urinary symptoms. Possible that her suprapubic tenderness is due to cystitis. She will be treated with ceftriaxone iv and then Cefdinir at home. She has follow-up with her GI doctor early next week. She is comfortable going home and following up with them at her regularly scheduled appointment. Given return precautions for worsening condition, severe abdominal pain or any new symptoms. -DDX includes but is not limited to: Diverticulitis, UTI, colitis, small-bowel obstruction, appendicitis pyelonephritis Vital Signs Vital Signs: Vital Signs Temperature 97.9 F 03/08/25 17:52 Pulse Rate 106 H 03/08/25 17:52 Respiratory Rate 20 03/08/25 17:52 Blood Pressure 156/85 H 03/08/25 17:52 Pulse Oximetry 99 03/08/25 17:52 Oxygen Delivery Room Air 03/08/25 17:52 Temperature 97.9 F 03/08/25 17:52 Pulse Rate 88 03/08/25 20:29 Respiratory Rate 18 03/08/25 20:29 Blood Pressure 129/57 L 03/08/25 20:29 Pulse Oximetry 100 03/08/25 20:29 Oxygen Delivery Room Air 03/08/25 17:52 Lab Data 03/08/25 18:30 03/08/25 18:30 Labs: Lab Results 03/08/25 Range/Units 18:30 WBC 13.2 H (4.5-10.0) K/mm3 RBC 4.60 (4.2-5.4) M/mm3 Hgb 13.9 (12.0-15.0) g/dL Hct 43.7 (37.0-47.0) % MCV 95.0 (80-100) fl MCH 30.2 (26-34) pg MCHC 31.8 L (32-36) g/dl RDW 12.6 (11.5-14.5) % Plt Count 269 (150-375) k/mm3 MPV 10.7 H (7.4-10.4) fl Immature Gran % (Auto) 0.4 (0-0.5) % Neut % (Auto) 73.1 (45.5-73.1) % Lymph % (Auto) 17.1 L (18.3-44.2) % Lee % (Auto) 8.8 H (2.6-8.5) % Eos % (Auto) 0.2 (0-4.4) % Baso % (Auto) 0.4 (0.2-1.2) % Lymph # (Auto) 2.25 (0.9-3.2) K/mm3 Lee # (Auto) 1.2 H (0.1-0.6) K/mm3 Eos # (Auto) 0.0 (0-0.3) K/mm3 Baso # (Auto) 0.1 (0.0-0.1) K/mm3 Abs Immat Gran (auto) 0.05 H (0.00-0.031) K/mm3 Absolute Neuts (auto) 9.6 H (1.3-6.7) K/mm3 Absolute Nucleated RBC 0.000 (0.0-0.012) K/mm3 Nucleated RBC % 0.0 (0.0-0.2) % Sodium 138 (137-145) mmol/L Potassium 4.0 (3.4-5.0) mmol/L Chloride 103 (98-107) mmol/L Carbon Dioxide 21 L (22-30) mmol/L Anion Gap 14 H (4-12) mmol/L BUN 31 H D (7-17) mg/dL Creatinine 1.37 H (0.7-1.0) mg/dL Estim Creat Clear Calc 24 ml/min Estimated GFR 37 L (59 - ) Glucose 96 (65-110) mg/dL Calcium 9.8 (8.4-10.2) mg/dL Total Bilirubin 1.0 (0.2-1.3) mg/dL AST 37 H (14-36) U/L ALT 24 (6-35) U/L Alkaline Phosphatase 79 (38-126) U/L Total Protein 8.0 (6.3-8.2) g/dL Albumin 4.7 (3.5-5.1) g/dL Lipase 161 (23-300) U/L Urine Color Yellow (Yellow) Urine Appearance Clear (Clear) Urine pH 5.0 (5.0-9.0) Ur Specific [place] 1.022 (1.001-1.035) Urine Protein Trace (Negative) mg/dL Urine Glucose (UA) Negative (Negative) mg/dL Urine Ketones 1+ H (Negative) mg/dL Ur Blood (Man) Negative (Negative) Urine Nitrate Negative (Negative) Urine Bilirubin Negative (Negative) Urine Urobilinogen 1.0 (<2.0) mg/dL Leukocyte Esterase Rfl 2+ H (Negative) CONI/UL Urine RBC 0-2 (0-2) /hpf Urine WBC 21-50 H (0-3) /hpf Ur Squamous Epith Cells Moderate (Few) /hpf Urine Bacteria Rare /hpf Urine Casts 3-5 Discharge Plan Discharge Clinical Impression: Abdominal pain, Acute UTI Patient Disposition: Home Condition: Stable Instructions: Antibiotic Form, Urinary Tract Infection in Women (DC), Abdominal Pain (ED) Additional Instructions: You were seen in the emergency department for abdominal pain. Your urine appears infected. Please complete a course of cefdinir. Please follow-up with her GI appointment on Tuesday. If you develop severe abdominal pain, fevers or any new or worsening symptoms return to ED for re-evaluation. Patient Language: Filipino Prescriptions: New cefdinir 300 mg capsule 300 mg PO Q12H Qty: 14 0RF No Action melatonin 3 mg Tablet 3 mg PO HS PRN (Reason: Insomnia) acetaminophen 500 mg Tablet 1,000 mg PO Q6H PRN (Reason: pain or fever) dicyclomine 20 mg tablet 20 mg PO QID PRN (Reason: cramping) Qty: 30 5RF levothyroxine [Synthroid] 75 mcg tablet 75 mcg PO DAILY Qty: 90 2RF lisinopril 10 mg tablet 10 mg PO DAILY Qty: 90 2RF budesonide 3 mg capsule,delayed,extend.release 6 mg PO DAILY 30 Days Qty: 60 5RF hydrocortisone [Proctosol HC] 2.5 % cream with perineal applicator 1 applic RECTAL DAILY PRN (Reason: itching) Qty: 30 0RF Follow-up/Referrals: PHYSICIAN NOT ON STAFF,NONSTAFF [Primary Care Provider] -
[2025-03-08 20:29] VITALS: BP 129/57; PULSE 88; RESP 18; O2SAT 100
[2025-03-08 23:03] VITALS: BP 125/62; PULSE 79; RESP 19; O2SAT 98
[2025-03-08 23:05] VITALS: BP 125/62; PULSE 79; RESP 19; O2SAT 98
== END 2025-03-08 23:06 | disposition home or self-care (01) ==
PROVIDERS: Emergency Provider Emergency Medicine
DX: N39.0 Urinary tract infection, site not specified (principal); I12.9 Hypertensive chronic kidney disease with stage 1 through stage 4 chronic kidney disease, or unspecified chronic kidney disease; N18.30 Chronic kidney disease, stage 3 unspecified; E03.9 Hypothyroidism, unspecified; M05.779 Rheumatoid arthritis with rheumatoid factor of unspecified ankle and foot without organ or systems involvement; M81.0 Age-related osteoporosis without current pathological fracture; K21.9 Gastro-esophageal reflux disease without esophagitis; K58.9 Irritable bowel syndrome, unspecified; F32.A Depression, unspecified; Z90.49 Acquired absence of other specified parts of digestive tract; Z90.710 Acquired absence of both cervix and uterus; Z79.899 Other long term (current) drug therapy
CPT/HCPCS: 36415; 74176; 80053; 81001; 83690; 85025; 96361; 96365; 96375; 99284; J0696; J1171; J7030

== ENCOUNTER 2025-07-03 14:56 | Outpatient (CLI) | payer MEDICARE, OTHER, SELFPAY ==
--- NOTE | ~2025-07-03 | XR_ITS ---
XR lumbar spine 2-3V Indication: M54.50 - Low back pain, unspecified Comparison: None Findings: Moderate osteopenia. Moderate loss of vertebral height throughout with kyphoplasty changes at L3, L2 and L1 with remote compression fractures of L1 and L2 with loss of height LT 50%. Grade 1 retrolisthesis L1 on L2 and L2 on L3. Severe loss of disc height throughout. Soft tissues unremarkable Impression: No acute abnormality. Reviewed, dictated and finalized at location A. Impression: No acute abnormality.
--- NOTE | ~2025-07-03 | XR_ITS ---
EXAMINATION: XR hip LT min 2V, 07/03/2025 15:05 CDT HISTORY: M54.50 - Low back pain, unspecified COMPARISON: No comparisons available. Findings: No acute fracture or malalignment. No significant degenerative changes. Soft tissues unremarkable. Impression: No acute fracture or malalignment. Reviewed, dictated and finalized at location A. Impression: No acute fracture or malalignment.
== END 2025-07-03 14:57 | disposition home or self-care (01) ==
LOC: MICIMG 14:57
PROVIDERS: PCP Family Medicine; Visit Provider Student in an Organized Health Care Education/Training Program
DX: M54.50 Low back pain, unspecified (principal); G89.29 Other chronic pain; S32.000A Wedge compression fracture of unspecified lumbar vertebra, initial encounter for closed fracture; X58.XXXA Exposure to other specified factors, initial encounter
CPT/HCPCS: 72100; 73502